=== PATIENT | male | born 1950 | race Caucasian/White ===

== ENCOUNTER 2024-03-09 08:54 | Outpatient (AMB) | payer OTHER, SELFPAY ==
--- OUTSIDE RECORDS SUMMARY | 2024-03-09 09:11 | XMS_ITS | Encounter Summary ---
Author Name [facility] [place] [facility] [place] Address [address] [place] [address] Care Team Providers Care Infection Control Coordinator Name Role Phone MAXI FULLER Primary Care Provider Unavailabl e Insurance Providers: All historical and current Section Date Range: From patient's date of to the date document was created. This section includes the names of all active insurance providers for the patient. Insurance Provider Type of Coverage Plan Name Start of Policy Coverage End of Policy Coverage Group Number Member ID Insurance Provider's Telephone Number Policy Awan's Name Patient's Relationship to Policy Awan [facility] June 17, 2013 [id number] Idania BENITEZ PATIENT MEDICARE (WNR) MEDICARE () PART B June 17, 2013 PART B [id number] Idania BENITEZ PATIENT MEDICARE (WNR) MEDICARE () PART A June 17, 2013 PART A [id number] Idania BENITEZ PATIENT MEDICARE (WN) MEDICARE () PART A June 17, 2013 PART A [id number] Idania BENITEZ AYJESSENIA PATIENT MEDICARE (WNR) MEDICARE () PART B June 17, 2013 PART B [id number],W AYNE PATIENT Selected Encounter This section includes the information on record at [place] for the Encounter. Date/Time Encounter Type Encounter Description Reason Pro vider Source Mar 05, 2024 05:06 PM Outpatient Encounter [facility] Encounter Template Text not used by [place] Plan of Treatment: Future Appointments (+ 6 months) and Future Tests (+/- 45 days) The Plan of Treatment section includes future care activities for the patient from all [place] treatmentfacilities. This section includes future appointments and future orders which are active, pending or scheduled. Future Appointments This section includes appointments that were scheduled to occur 6 months from the date of the Encounter, up to a maximum of 20 appointments. The data comes from all [facility]. Appointment Date/Time Appointment Type Appointme nt Facility Name Mar 22, 2024 08:00 AM AMBULATORY - [facility] Mar 24, 2024 11:00 AM [facility] Apr 27, 2024 10:30 AM [facility] Jun 16, 2024 09:00 AM AMBULATORY - MEDICINE [facility] Active, Pending, and Scheduled Orders This section includes a listing of several types of active, pending, and scheduled orders, including clinic medications orders, diagnostic test orders, procedure orders and consult orders; where the start date of the order is 45 days before the date of the Encounter or 45 days after the date of theEncounter. The data comes from all [facility]. Test Date/Time Test Type Test Details Facility Name Feb 13, 2024 02:59 PM Consult Order [facility] NON-SKILLED HOME HEALTH AIDE Cons Television Repair Teacher's Choice [facility] Mar 14, 2024 12:00 AM Laboratory - Chemistry Order MICROALBUMIN CREATININE RATIO PANEL URINE (RANDOM) [facility] Mar 14, 2024 12:00 AM Laboratory - Chemistry Order BASIC METABOLIC PANEL (non-fasting) BLOOD (SST-SERUM) [facility] Mar 14, 2024 12:00 AM Laboratory - Chemistry Order FERRITIN BLOOD (SST-SERUM) [facility] Mar 14, 2024 12:00 AM Laboratory - Chemistry Order CBC BLOOD (LAV-BLOOD) [facility] Mar 14, 2024 12:00 AM Laboratory - Chemistry Order IRON & TIBC PANEL BLOOD (SST-SERUM) [facility] Social History: Smoking Status (Most current) and Tobacco Use (All prior to encounter date) This section includes the most current, and the historical, smoking and tobacco- related health factors from the [place] facility where the Encounter took place. Current Smoking Status This section includes the most current smoking, or tobacco-related health factor, from the [place] facility where the Encounter took place. Date/Time Current Smoking Status Comment Facil ity Oct 21, 2019 10:30 AM [place]-TOBAC[place] FORMER USER [facility] Tobacco Use History This section includes a history of the smoking, or tobacco-related health factors, that were collected on or before the date of the Encounter. The data comes from the [place] facility where the Encounter took place. Date/Time Smoking Status/Tobacco Use Comment F acility Oct 21, 2019 10:30 AM [place] QUIT 15 YRS OR MORE [facility] Advance Directives: All historical and current Section Date Range: From patient's date of to the date document was created. This section includes ALL of a patient's completed or amended [place] Advance and Rescinded Directives. The entries below indicate that a directive exists for the patient, but an actual copy is not included with this document. The data comes from all [place] facilities. Date Advance Directives Provider Source Oct 03, 2016 ADVANCE DIRECTIVE [facility]AB[facility] SOSA [facility] Encounter Notes: All associated encounter notes This section contains the clinical notes associated to the Encounter. Date/Time Encounter Note(s) Provider Source Mar 05, 2024 05:08 PM LETTERS: LOCAL TITLE: PATIENT LETTER (B) STANDARD TITLE: LETTERS DATE OF NOTE: MAR 05, 2024@17:08 ENTRY DATE: MAR 05, 2024@17:08:32 AUTHOR: SUMIT PIERCE SA COSIGNER: URGENCY: STATUS: COMPLETED MAR 05, 2024 LULU BENITEZ [address] [place] [id number] Dear LULU BENITEZ Thank you for choosing the Department of [facility] ([place]) [facility] as your primary choice for health care. As a partner in your health care, we are contacting you in writing since we have been unsuccessful in our attempts to reach you to date. We want to assure you we are doing everything possible to schedule Veterans for their VA medical care appointments. Our records indicate you are due for an appointment in [facility]. If you would like to be seen, please contact [place] Call Center at ext. [phone] to schedule an appointment. Thank you for your service to our nation, and we look forward to hearing from you soon. Sincerely, [facility] [address] [facility] [address] [place] [address] [place] [address] [phone] [facility] [address] [facility] [address] [place] [address] [place] [address] ext. [phone] [facility] [address] [facility] [address] [place] [address] [place] [address] ext. [phone] SUMIT PIERCE [facility] Mar 05, 2024 05:06 PM ADMINISTRATIVE NOTE: LOCAL TITLE: ADMINISTRATIVE RECALL NOTE STANDARD TITLE: ADMINISTRATIVE NOTE DATE OF NOTE: MAR 05, 2024@17:06 ENTRY DATE: MAR 05, 2024@17:06:41 AUTHOR: SUMIT PIERCE SA COSIGNER: URGENCY: STATUS: COMPLETED RTC orders: Unable to contact patient: Attempts to contact: 1st attempt: Left voicemail 2nd attempt: Letter mailed 3rd attempt: 4th attempt: Called, on to reschedule appointment. Mailed letter. When the calls back please schedule for CWM/NO/OPTOMETRY/MERHAR, with a PID of 02/03/2024. Provided specialties clinic call back phone number [phone] Ext: [phone] LORRIE will disposition on 03/22/2024 /israel/ SUMIT PIERCE Signed: 03/05/2024 17:08 SUMIT PIERCE [facility]
--- OUTSIDE RECORDS SUMMARY | 2024-03-09 09:11 | XMS_ITS | Continuity of Care Document ---
Author Name [facility] Organization [facility] Care Team Providers Care Director Of Channel Marketing Name Role Phone [facility] Unavailable Unavailable Problems Combined list of problems from Department of Defense and Veterans Affairs facilities. It does not include entries that were removed or entered in error. Problem Status Onset Date Problem Type Date of Resolution Comments Source Colonoscopy Screening Active Condition Sep 02, 2016 Entered By: MAXI FULLER Comment: 2014 - repeat 2019 - Dr Gilmore 2021 Entered By: MAXI FULLER Comment: 09/06/19 - Dr. Sepulveda - internal hemorrhoids that prolapse w/ straining requiring manual replacement Garde 3Feb 2021 Entered By: MAXI FULLER Comment: hypertophied anal papillaFeb 2021 Entered By: MAXI FULLER Comment: repeat in 2 years d/t poor prep (08/2021)June 24, 2022 Entered By: MIKE MOLINA Comment: 03/20/[address] [facility] [address] Benitez Zhou, Prep poor, internal hemorrhoids, diverticulosis in the sigmoid, 1 7mm polyp in ascending colon, repeat 5 years. [facility] Fatty liver Active Condition Sep 02, 2016 Entered By: MAXI FULLER Comment: Liver Bx performed in past confirming Dx [facility] Hypercholesterolemia Active Condition [facility] Parkinson's disease Active Condition Sep 02, 2016 Entered By: MAXI FULLER Comment: 2013 - CT Head normal [facility] Type 2 diabetes mellitus Active Condition [facility] Vitamin D deficiency Active Condition [facility] Hypertension Inactive Condition 03/21/2022 [facility] non va provider Inactive Condition 09/02/2016 Aug 28, 2016 Entered By: LEIGH JONES Comment: Dr Red Murray ph:[phone] fax: [phone] [facility] [place] [facility] Primary Care Physician Inactive Condition 017 Aug 30, 2016 Entered By: MAXI FULLER Comment: [facility] 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 [place] Diagnosis: ICD-10-CM R80.0 Isolated proteinuria [facility] Diagnosis: ICD-10-CM E11.9 Type 2 diabetes mellitus without complications Active Diagnosis [place] Diagnosis: ICD-10-CM L60.0 Ingrowing nail Active Diagnosis [place] Diagnosis: ICD-10-CM G20.C Parkinsonism, unspecified Active Diagnosis [facility] [place] [facility] Diagnosis: ICD-10-CM Z46.0 Encounter for fit/adjst of spectacles and contact lenses Active Diagnosis [facility] [place] [facility] Diagnosis: ICD-10-CM B35.1 Tinea unguium Active Diagnosis [place] Diagnosis: ICD-10-CM I10 Essential (primary) hypertension Active Diagnosis [facility] Medications Combined list of outpatient medications from Department of Defense and Veterans Affairs facilities.Medications provided include 1) outpatient medications from the last 15 months, and 2) patient-reported medications. Medication Details Route Status Patient Instructions Prescription Expires Prescription Number Last Dispense Date Ordering Provider Order Date Order Qty Source ATORVASTATI N CA 40MG TAB TAKE ONE-HALF TABLET BY MOUTH DAILY FOR CHOLESTE ROL ORAL ACTIVE 06/26/2024 [id number] CONSTANTINO FULLER SA 2023 45 [place] ATORVASTATI N CA 40MG TAB TAKE ONE-HALF TABLET BY MOUTH DAILY FOR CHOLESTE ROL ORAL DISCONT INUED 10/01/2023 [id number] 4 CONSTANTINO FULLER SA 2022 45 [place] CARBIDOPA 25MG/LEVODO PA 100MG TAB TAKE 2 TABLETS BY MOUTH EVERY MORNING AND TAKE 1 TABLET TWICE DAILY FOR PARKINSO N'S DISEASE ORAL ACTIVE 05/15/2024 [id number] MARIA DE JESUS SUE 2023 360 [facility] CARBIDOPA 25MG/LEVODO PA 100MG TAB TAKE 1 TABLET BY MOUTH THREE TIMES A DAY ORAL DISCONT INUED 06/29/2023 [id number] 4 MARIA DE JESUS SUE 2022 270 [facility] CHOLECALCIF MARILOU 50MCG (2,000UNIT) TAB TAKE ONE TABLET BY MOUTH DAILY ORAL ACTIVE CONSTANTINO FULLER SA 2016 [facility] MELATONIN 5MG CAP/TAB TAKE TWO CAPSULE/ TABLET BY MOUTH AT BEDTIME FOR SLEEP DISORDER ORAL ACTIVE 05/15/2024 [id number] MARIA DE JESUS SUE 2023 180 [facility] POLYETHYLEN E GLYCOL 3350 PWDR,ORAL TAKE 17 GRAMS (1 CAPFUL) BY MOUTH TWICE DAILY NEEDED FOR CONSTIPA TION [MIX WITH 4 TO 8OZ. OF BEVERAGE ] ORAL ACTIVE 05/15/2024 [id number] 4 MARIA DE JESUS SUE 2023 510 [facility] RASAGILINE MESYLATE 1MG TAB TAKE ONE TABLET BY MOUTH ONCE DAILY ORAL ACTIVE 05/15/2024 [id number] 4 MARIA DE JESUS SUE 2023 90 [facility] RASAGILINE MESYLATE 1MG TAB TAKE ONE TABLET BY MOUTH ONCE DAILY ORAL DISCONT INUED 06/29/2023 [id number] 4 MARIA DE JESUS SUE 2022 90 [facility] VITAMIN B COMPLEX CAP TAKE 1 CAPSULE BY MOUTH DAILY ORAL ACTIVE CONSTANTINO FULLER SA 2016 [facility] Immunizations Combined list of available immunizations from the Department of Defense and Veterans Affairs facilities. Immunization Series Date Given Administered By Site Reaction Lot Number CVX Code Drug Foundation Digger Status Comments Source INFLUENZA, HIGH-DOSE, TRIVALENT, PF 2023 JESSE,SHAR ON M LEFT DELTO ID [id number] 135 complet ed [place] INFLUENZA, INJECTABLE, QUADRIVALENT, PRESERVATIVE FREE 2022 DOTTY JUAREZ LEFT DELTO ID [id number] 150 complet ed [place] INFLUENZA VACCINE, QUADRIVALENT, ADJUVANTED 2021 205 complet ed [place] COVID-19 (MODERNA), MRNA, LNP-S, PF, 100 MCG OR 50 MCG DOSE 3 2020 207 complet ed [facility] HEP B, ADULT 1 2020 43 complet ed [place] TDAP 2020 115 complet ed [place] COVID-19 (PFIZER), MRNA, LNP-S, PF, 30 MCG/0.3 ML DOSE 2 2020 208 complet ed [facility] COVID-19 (PFIZER), MRNA, LNP-S, PF, 30 MCG/0.3 ML DOSE 1 2020 208 complet ed [facility] HEPB-CPG 1 2019 189 complet ed [place] INFLUENZA, INJECTABLE, QUADRIVALENT, PRESERVATIVE FREE 2019 150 complet ed [place] INFLUENZA, SEASONAL, INJECTABLE 2018 141 complet ed [facility] unsure of exact date [facility] PNEUMOCOCCAL POLYSACCHARID E PPV23 2018 33 complet ed [place] INFLUENZA, SEASONAL, INJECTABLE 2017 141 complet ed had vaccine at [facility] ZOSTER RECOMBINANT 2 2017 187 complet ed [place] ZOSTER RECOMBINANT 1 2017 187 complet ed [place] INFLUENZA, SEASONAL, INJECTABLE 2016 141 complet ed [facility] INFLUENZA, SEASONAL, INJECTABLE 2016 141 complet ed [facility] - High Dose [facility] INFLUENZA, SEASONAL, INJECTABLE 2016 141 complet ed [facility] PNEUMOCOCCAL CONJUGATE PCV 13 2016 133 complet ed [place] PNEUMOCOCCAL POLYSACCHARID E PPV23 2011 33 complet ed YES [id number] EXP. 3 [facility] FLU,3 YRS (HISTORICAL) 2010 88 complet ed per immunizat ion records faxed [facility] TDAP 2010 115 complet ed LOT [id number] EXP. 12/19/2012 [facility] ZOSTER (HISTORICAL) 2008 121 [place] [id number] EXP. 04/15/2010 [facility] TD(ADULT) UNSPECIFIED FORMULATION 2006 139 complet ed LOT: [id number] [facility] PNEUMOCOCCAL POLYSACCHARID E PPV23 2005 33 complet ed YES [id number] EXP. 06/23 [facility] HEPATITIS B VACCINE (HISTORICAL) 1998 43 complet ed per vet med records had at work [facility] Results Combined list of recent chemistry, hematology and other laboratory results from Department of Defense and Veterans Affairs, ranging from 15 months to all on record, depending upon the facility. Order Name Results Value Reference Range Date Interpretation Specimen Comments Source PO4 PHOSPHATE [MASS/VOLUM E] IN SERUM OR PLASMA 2.9 mg/dL 2.5 - 5.0 01/07 Specimen Type: SERUM No comment entered. Ordering Provider: JOSH ORTIZ Report Released Date/Time: Oct 30, 2023 03:17 PM Reporting Lab: [facility] [address] [facility] [address] Performing Lab: [facility] [facility] [address] [facility] [facility] [address] [facility] PTH INTACT PARATHYRIN. INTACT [MASS/VOLUM E] IN SERUM OR PLASMA 35.1 pg/mL 10 - 65 01/07 Specimen Type: SERUM No comment entered. Ordering Provider: JOSH ORTIZ Report Released Date/Time: Oct 30, 2023 03:17 PM Reporting Lab: [facility] [place] [facility] [address] [facility] [address] Performing Lab: [facility] [place] [facility] [address] [facility] [facility] [address] [facility] URIC ACID URATE [MASS/VOLUM E] IN SERUM OR PLASMA 6.5 mg/dL 3.5 - 7.2 01/07 Specimen Type: SERUM No comment entered. Ordering Provider: JOSH ORTIZ Report Released Date/Time: Oct 30, 2023 03:17 PM Reporting Lab: [facility] [address] [facility] [address] Performing Lab: [place] [facility] [address] [facility] [address] [facility] VITAMIN D (25-OH) 25-HYDROXYV ITAMIN D3 [MASS/VOLUM E] IN SERUM OR PLASMA 34 ng/mL 20 - 50 01/07 Specimen Type: SERUM No comment entered. Ordering Provider: JOSH ORTIZ Report Released Date/Time: Oct 30, 2023 03:17 PM Reporting Lab: [facility] [address] [facility] [address] Performing Lab: [facility] [address] [facility] [facility] [address] [facility] BASIC METABOLIC PANEL (non-fast ing) UREA NITROGEN [MASS/VOLUM E] IN SERUM OR PLASMA 13 mg/dL 7 - 25 01/07 Specimen Type: SERUM No comment entered. Ordering Provider: JOSH ORTIZ Report Released Date/Time: Oct 30, 2023 03:17 PM Reporting Lab: [facility] [place] [facility] [address] [facility] [address] Performing Lab: [facility] [place] [facility] [address] [facility] [address] [facility] BASIC METABOLIC PANEL (non-fast ing) GLUCOSE [MASS/VOLUM E] IN SERUM OR PLASMA 131 mg/dL 65 - 100 01/07 H Specimen Type: SERUM No comment entered. Ordering Provider: JOSH ORTIZ Report Released Date/Time: Oct 30, 2023 03:17 PM Reporting Lab: [facility] [address] [facility] [address] Performing Lab: [facility]ITALUSE[address] [address] [facility] BASIC METABOLIC PANEL (non-fast ing) SODIUM [MOLES/VOLU ME] IN SERUM OR PLASMA 142 mmol/L 135 - 145 01/07 Specimen Type: SERUM No comment entered. Ordering Provider: JOSH ORTIZ Report Released Date/Time: Oct 30, 2023 03:17 PM Reporting Lab: [facility] [address] Performing Lab: [facility] [address] [facility] BASIC METABOLIC PANEL (non-fast ing) POTASSIUM [MOLES/VOLU ME] IN SERUM OR PLASMA 4.7 mmol/L 3.5 - 5.0 01/07 Specimen Type: SERUM No comment entered. Ordering Provider: JOSH ORTIZ Report Released Date/Time: Oct 30, 2023 03:17 PM Reporting Lab: [facility] [address] Performing Lab: [place] [facility] [facility]ITAL[facility] [address] [address] [facility] BASIC METABOLIC PANEL (non-fast ing) CHLORIDE [MOLES/VOLU ME] IN SERUM OR PLASMA 105 mmol/L 100 - 110 01/07 Specimen Type: SERUM No comment entered. Ordering Provider: JOSH ORTIZ Report Released Date/Time: Oct 30, 2023 03:17 PM Reporting Lab: [facility] [address] Performing Lab: [place] [facility] [address] [facility] BASIC METABOLIC PANEL (non-fast ing) CARBON DIOXIDE, TOTAL [MOLES/VOLU ME] IN SERUM OR PLASMA 26 meq/L 20 - 30 01/07 Specimen Type: SERUM No comment entered. Ordering Provider: JOSH ORTIZ Report Released Date/Time: Oct 30, 2023 03:17 PM Reporting Lab: [facility] [address] [address] Performing Lab: [facility] [address] [address] [facility] BASIC METABOLIC PANEL (non-fast ing) CREATININE [MASS/VOLUM E] IN SERUM OR PLASMA 1.05 mg/dL 0.50 - 1.40 01/07 Specimen Type: SERUM No comment entered. Ordering Provider: JOSH ORTIZ Report Released Date/Time: Oct 30, 2023 03:17 PM Reporting Lab: [address] [address] Performing Lab: [address] [address] [facility] BASIC METABOLIC PANEL (non-fast ing) GLOMERULAR FILTRATION RATE/1.73 SQ M.PREDICTED [VOLUME RATE/AREA] IN SERUM, PLASMA OR BLOOD BY CREATININE- BASED FORMULA (CKD-EPI 2020) 74 mL/min 60 01/07 Specimen Type: SERUM No comment entered. Ordering Provider: JOSH ORTIZ Report Released Date/Time: Oct 30, 2023 03:17 PM Reporting Lab: [address] [address] Performing Lab: [address] [address] [facility] MAGNESIUM MAGNESIUM [MASS/VOLUM E] IN SERUM OR PLASMA 2.1 mg/dL 1.6 - 2.6 01/07 Specimen Type: SERUM No comment entered. Ordering Provider: JOSH ORTIZ Report Released Date/Time: Oct 30, 2023 03:17 PM Reporting Lab: [facility] [place] [facility] [address] [facility] [address] Performing Lab: [facility] [place] [facility] [address] [facility] [address] [place] [facility] [place] [facility] FERRITIN FERRITIN [MASS/VOLUM E] IN SERUM OR PLASMA 427 ng/mL 20 - 300 01/07 H Specimen Type: SERUM No comment entered. Ordering Provider: JOSH ORTIZ Report Released Date/Time: Oct 30, 2023 03:17 PM Reporting Lab: [facility] [place] [facility] [address] [facility] [address] Performing Lab: [facility] [place] [facility] [address] [facility] [address] [facility] [place] [facility] CHOLESTER OL CHOLESTEROL [MASS/VOLUM E] IN SERUM OR PLASMA 148 mg/dL 01/07 Specimen Type: SERUM No comment entered. Ordering Provider: JOSH ORTIZ Report Released Date/Time: Oct 30, 2023 03:17 PM Reporting Lab: [facility] [place] [facility] [address] [facility] [address] Performing Lab: [facility] [place] [facility] [address] [facility] [address] [facility] HDL CHOLESTER OL CHOLESTEROL IN HDL [MASS/VOLUM E] IN SERUM OR PLASMA 50 mg/dL 40 - 60 01/07 Specimen Type: SERUM No comment entered. Ordering Provider: JOSH ORTIZ Report Released Date/Time: Oct 30, 2023 03:17 PM Reporting Lab: [facility] [place] [facility] [address] [facility] [address] Performing Lab: [facility] [place] [facility] [address] [facility] [address] [facility] [place] [facility] CALCIUM CALCIUM [MASS/VOLUM E] IN SERUM OR PLASMA 9.4 mg/dL 8.5 - 10.2 01/07 Specimen Type: SERUM No comment entered. Ordering Provider: JOSH ORTIZ Report Released Date/Time: Oct 30, 2023 03:17 PM Reporting Lab: [facility] [address] [facility] [address] Performing Lab: [facility] [address] [facility] [address] [facility] Vital Signs Combined list of inpatient and outpatient Vital Signs from Department of Defense and Veterans Affairs, ranging from 12 months to all on record, depending upon the facility. Vital Sign Value Date Comments Source SYSTOLIC BLOOD PRESSURE 115 10/29/19 24 11:44:22 [facility] DIASTOLIC BLOOD PRESSURE 73 024 11:44:22 [facility] PULSE OXIMETRY 97 10/29/2023 11:44:22 [facility] WEIGHT 178.6 10/29/2023 11:44:22 [facility] BMI 27kg/m2 10/29/2023 11:44:22 [facility] PAIN 0 10/29/2023 11:44:22 [facility] HEIGHT 68 10/29/2023 11:44:22 [facility] TEMPERATURE 97.1 10/29/2023 11:44:22 [facility] PULSE 69 10/29/2023 11:44:22 [facility] RESPIRATION 18 10/29/2023 11:44:22 [facility] SYSTOLIC BLOOD PRESSURE 105 05/15/19 24 10:34:02 [facility] DIASTOLIC BLOOD PRESSURE 67 024 10:34:02 [facility] PULSE OXIMETRY 98 05/15/2023 10:34:02 [facility] WEIGHT 183.8 05/15/2023 10:34:02 [facility] BMI 28kg/m2 05/15/2023 10:34:02 [facility] PAIN 0 05/15/2023 10:34:02 [facility] TEMPERATURE 98 05/15/2023 10:34:02 [facility] PULSE 80 05/15/2023 10:34:02 [facility] RESPIRATION 18 05/15/2023 10:34:02 [facility] SYSTOLIC BLOOD PRESSURE 117 04/21/19 24 08:28:01 [facility] DIASTOLIC BLOOD PRESSURE 75 024 08:28:01 [facility] PULSE OXIMETRY 98 04/21/2023 08:28:01 [facility] WEIGHT 181.4 04/21/2023 08:28:01 [facility] BMI 28kg/m2 04/21/2023 08:28:01 [facility] PAIN 0 04/21/2023 08:28:01 [facility] HEIGHT 68 04/21/2023 08:28:01 [facility] TEMPERATURE 98.4 04/21/2023 08:28:01 [facility] PULSE 70 04/21/2023 08[facility]28:01 [facility] RESPIRATION 16 04/21/2023 08:28:01 [facility] Encounters Combined list of: 1) Encounters from Department of Veterans Affairs facilities going back up to thelast 18 months. 2) Encounters from the Department of Defense facilities going back up to 280 months. Location Location Details Encounter Type Encounter Number Reason For Visit Attending Provider ADM Date DC Date Status Disposition Source [facility] Encounter [id number] 09[facility]19 [facility] Out[facility] Encounter [id number] 09/30 [facility] OFFICE O/P EST LOW 20-29 MIN [id number] Diagnos is: ICD-10- CM I10 Essenti al (primar y) hyperte nsion<b r/> FRANCISCA FULLER 09/30 [place] [facility] Outpatient Encounter [id number] 10/18 [facility] OFFICE O/P EST MOD 30-39 MIN [id number] Diagnos is: ICD-10- CM B35.1 Tinea unguium
CAITLYN GANDHI ES F 11[place]11 [place] [facility] EYE EXAM&TX ESTAB PT 1/>VST [id number] Diagnos is: ICD-10- CM E11.9 Type 2 diabete s mellitu s without complic ations< br/> MERHAR,ELIZABETH H B 01/13 [facility] FIT SPECTACLES MULTIFOCAL [id number] Diagnos is: ICD-10- CM Z46.0 Encount er for fit/adj st of spectac les and contact lenses< br/> MERHAR,ELIZABETH H B 01/13 [facility] Outpatient Encounter [id number] POOJA RICHEY 02/24 [facility] Out[facility] Encounter [id number] 02/24 [facility] Outpatient Encounter [id number] 03/18 [facility] Out[facility] Encounter [id number] 03/19 [facility] Out[facility] Encounter [id number] 03/19 [facility] Outpatient Encounter [id number] 04/02 [facility] OFFICE O/P EST LOW 20 MIN [id number] Diagnos is: ICD-10- CM L60.3 Nail dystrop hy
CAITLYN GANDHI ES F 04[facility] EST MOD 30 MIN [id number] Diagnos is: ICD-10- CM G20.C Makayla onism, unspeci fied
FRANCISCA FULLER 04/20 [place] [facility] Outpatient Encounter [id number] 04/28 [facility] Encounter [id number] 05/11 [facility] OFFICE O/P EST MOD 30 MIN [id number] Diagnos is: ICD-10- CM G20.C Makayla onism, unspeci fied
KARINA SUE IETre Y 05/14 [facility] En[facility] [id number] 05/15 [facility] Out[facility] Encounter [id number] 05/26 [facility] Out[facility] Encounter [id number] 06/02 [facility] Encounter [id number] 06/09 [facility] [id number] 06/18 [facility] [id number] 06/25 [facility] [id number] 07/07 [facility] [id number] 07/21 [facility] [id number] 07/28 [facility] [id number] 08/04 [facility] [id number] 08/18 [facility] En[facility] [id number] 09/08 [facility] [place] [facility] O/P EST LOW 20 MIN [id number] Diagnos is: ICD-10- CM L60.0 Ingrowi ng nail
CAITLYN GANDHI F 09/30 [place] [facility] En[facility] [id number] 09/30 [facility] [id number] 1[facility]10/08 [facility] [id number] 1[facility]10/13 [facility] [id number] 1.10/20 [facility] OFF[facility] O/P EST MOD 30 MIN [id number] Diagnos is: ICD-10- CM E11.9 Type 2 diabete s mellitu s without complic ations< br/> FRANCISCA FULLER 10/28 [place] [facility] En[facility] [id number] 1.12/01 [facility] [id number] 1.12/10 [facility] [id number] [facility] [id number] [facility] [facility] Out[facility] Encounter [id number] 01/12 [facility] OFFICE O/P EST MOD 30 MIN [id number] 1. Diagnos is: ICD-10- CM R80.0 Isolate d protein uria
Jaya ORTIZ 01/12 [facility] Outpatient Encounter [id number] 1.01/13 [facility] Outpatient Encounter [id number] 1. POOJA RICHEY 02/12 [facility] Outpatient Encounter [id number] 02/12 [facility] OFFICE O/P EST LOW 20 MIN [id number] Diagnos is: ICD-10- CM L60.3 Nail dystrop hy
CAITLYN GANDHI F 02/24 [facility] Outpatient Encounter [id number] 03/03 [facility] Outpatient Encounter [id number] 03/05 [facility] Social History Combined list of available smoking, tobacco, and other social history from Department of Defense and Veterans Affairs facilities. Social History Type Response Date Comment Source Tobacco smoking status [facility] VA-TOBACCO FORMER USER 10/29/2023 [place] History of tobacco use [place]-TOBACCO QUIT 15 YRS OR MORE 10/29/2023 [place] History of tobacco use VA-TOBACCO FORMER USER 09/30/2022 [place] History of tobacco use VA-TOBACCO FORMER USER 09/18/2021 [place] History of tobacco use [place]-TOBACCO FORMER USER 09/28/2020 [place] History of tobacco use [place]-TOBACCO FORMER USER 10/21/2019 [facility] History of tobacco use OK-TOBACCO FORMER USER 04/16/2018 [place] History of tobacco use QUIT TOBACCO USE > 7 YEARS AGO 07/18/2017 [place] History of tobacco use QUIT TOBACCO USE > 7 YEARS AGO 09/02/2016 quit smoking cigarettes in 1994 [place] Plan of Care List of future care activities from [facility] facilities. Additional future care activities may be listed in the Assessment and Plan section. Date/Time Care Activity Care Activity Detail Facili ty 03/22/2024 AMBULATORY - MEDICINE AMBULATORY - MEDICI NE [facility] 03/24/2024 AMBULATORY - MEDICINE AMBULATORY - MEDICI NE [facility] 04/27/2024 AMBULATORY - MEDICINE AMBULATORY - MEDICI [facility] 06/16/2024 AMBULATORY - MEDICINE AMBULATORY - MEDICI [facility] 02/13/2024 Consult Order COMMUNITY CARE-G EC NON-SKILLED HOME HEALTH AIDE Cons Pathology Lab Technician's Choice [facility] 03/14/2024 Laboratory - Holiday Detector Operator ry Order MICROALBUMIN CREATININE RATIO PANEL URINE (RANDOM) [facility] 03/14/2024 Laboratory - Holiday Detector Operator ry Order BASIC METABOLIC PANEL (non-fasting) BLOOD (SST-SERUM) [facility] 03/14/2024 Laboratory - Holiday Detector Operator ry Order FERRITIN BLOOD (SST-SERUM) [facility] 03/14/2024 Laboratory - Holiday Detector Operator ry Order IRON and TIBC PANEL BLOOD (SST-SERUM) [facility] 03/14/2024 Laboratory - Holiday Detector Operator ry Order CBC BLOOD (LAV-BLOOD) [facility] Advance Directives List of completed, amended, or rescinded Advance Directives on record at [facility] facilities. An actual copy of the Directive is not included. Date Advance Directive Provider Source 10/03/2016 ADVANCE DIRECTIVE ELIZABETH SOSA [facility]
--- OUTSIDE RECORDS SUMMARY | 2024-03-09 09:11 | XMS_ITS | Encounter Summary ---
Author Name [place] Address [address] [place] [address] Care Team Providers Care Lay Out Inspector Name Role Phone MAXI FULLER Primary Care [...] Name Patient's Relationship to Policy Awan [facility] June 17, 2013 [id number] [phone] Idania BENITEZ PATIENT MEDICARE (WNR) MEDICARE () PART A June 17, 2013 PART A [id number] Idania BENITEZ PATIENT MEDICARE (WNR) MEDICARE () PART B June 17, 2013 PART B [id number] Idania BENITEZ PATIENT MEDICARE (WNR) MEDICARE () PART A June 17, 2013 PART A [id number] [phone] Idania BENITEZ PATIENT MEDICARE (WNR) MEDICARE (M) PART B June 17, 2013 PART B [id number] Idania BENITEZ PATIENT Selected Encounter This section includes the information on record at [place] for the Encounter. Date/Time Encounter Type Encounter Description Reason Pro vider Source Mar 03, 2024 10:12 PM Outpatient Encounter ADMIN PAT ACTIVTIES (MASNONCT) IHE Encounter Template Text not used by [place] Plan of Treatment: Future Appointments (+ 6 months) and Future Tests (+/- 45 days) The Plan of Treatment section includes future care activities for the patient from all [place] treatmentfacilities. This section includes future appointments and future orders which are active, pending or scheduled. Future Appointments This section includes appointments that were scheduled to occur 6 months from the date of the Encounter, up to a maximum of 20 appointments. The data comes from all [facility] facilities. Appointment Date/Time Appointment Type Appointme nt Facility Name Mar 22, 2024 08:00 AM AMBULATORY - MEDICINE [facility] Mar 24, 2024 11:00 AM AMBULATORY - MEDICINE [facility] Apr 27, 2024 10:30 AM AMBULATORY - MEDICINE [facility] Jun 16, 2024 09:00 AM AMBULATORY - MEDICINE [facility] Active, Pending, and Scheduled Orders This section includes a listing of several types of active, pending, and scheduled orders, including clinic medications orders, diagnostic test orders, procedure orders and consult orders; where the start date of the order is 45 days before the date of the Encounter or 45 days after the date of theEncounter. The data comes from all [facility]. Test Date/Time Test Type Test Details Facility Name Feb 13, 2024 02:59 PM Consult Order COMMUNITY CARE-GEC NON-SKILLED HOME HEALTH AIDE Cons Docent Coordinator's [facility] Mar 14, 2024 12:00 AM Laboratory - Chemistry Order MICROALBUMIN CREATININE RATIO PANEL URINE (RANDOM) [facility] Mar 14, 2024 12:00 AM Laboratory - Chemistry Order BASIC METABOLIC PANEL (non-fasting) BLOOD (SST-SERUM) [facility] Mar 14, 2024 12:00 AM Laboratory - Chemistry Order FERRITIN BLOOD (SST-SERUM) [facility] Mar 14, 2024 12:00 AM Laboratory - Chemistry Order IRON & TIBC PANEL BLOOD (SST-SERUM) [facility] Mar 14, 2024 12:00 AM Laboratory - Chemistry Order CBC BLOOD (LAV-BLOOD) [facility] Social History: Smoking Status (Most current) and Tobacco Use (All prior to encounter date) This section includes the most current, and the historical, smoking and tobacco- related health factors from the [place] facility where the Encounter took place. Current Smoking Status This section includes the most current smoking, or tobacco-related health factor, from the [place] facility where the Encounter took place. Date/Time Current Smoking Status Comment Facil ity Oct 21, 2019 10:30 [facility] Tobacco Use History This section includes a history of the smoking, or tobacco-related health factors, that were collected on or before the date of the Encounter. The data comes from the [place] facility where the Encounter took place. Date/Time Smoking Status/Tobacco Use Comment F acility Oct 21, 2019 10:30 AM [facility] OR [facility] Advance Directives: All historical and current Section Date Range: From patient's date of to the date document was created. This section includes ALL of a patient's completed or amended [place] Advance and Rescinded Directives. The entries below indicate that a directive exists for the patient, but an actual copy is not included with this document. The data comes from all [facility]. Date Advance Directives Provider Source Oct 03, 2016 ADVANCE DIRECTIVE ELIZABETH SOSA [facility] Encounter Notes: All associated encounter notes This section contains the clinical notes associated to the Encounter. Date/Time Encounter Note(s) Provider Source Mar 03, 2024 10:12 PM PHARMACY NOTE: LOCAL TITLE: PHARMACY CUSTOMER CARE MEDICATION RENEWAL STANDARD TITLE: PHARMACY NOTE DATE OF NOTE: MAR 03, 2024@22:12 ENTRY DATE: MAR 03, 2024@22:12:42 AUTHOR: ANN SORIA COSIGNER: URGENCY: STATUS: COMPLETED Date: Feb Division: [facility] referred by Pharmacy Call Center for medication renewal: Non-controlled/maintenan ce medication Medications requested: [id number] DOCUSATE NA 100MG CAP This medication was last released 07/08/2022, but the requested to renew it. Please review. Defer to specialty clinic To be mailed . Please review and renew if appropriate. *This note was generated by [facility]/[place] Pharmacy Customer Care. If you have any questions or need assistance, do not contact this author. Please refer all questions to your local, on-site pharmacy departments. /israel/ ANN SORIA CPhT Metal Extrusion Supervisor, [place]/Pharmacy Customer Care Signed: 03/03/2024 22:12 Receipt Acknowledged By: * AWAITING SIGNATURE * TENZIN SUE KATRINA M [place] [facility]
--- OUTSIDE RECORDS SUMMARY | 2024-03-09 09:12 | XMS_ITS | Encounter Summary ---
Author Name [place] Address [address] [place] [address] Care Team Providers Care Planer Chain Offbearer Name Role Phone MAXI FULLER Primary Care Provider Unavailflorentin e Insurance Providers: All historical and current [...] Name Patient's Relationship to Policy Awan [facility] June 17, 2013 [id number] Idania BENITEZ PATIENT MEDICARE (WNR) MEDICARE () PART A June 17, 2013 PART A [id number] Idania BENITEZ PATIENT MEDICARE (WNR) MEDICARE () PART B June 17, 2013 PART B [id number] Idania BENITEZ PATIENT MEDICARE (WNR) MEDICARE () PART A June 17, 2013 PART A [id number] Idania BENITEZ PATIENT MEDICARE (WNR) MEDICARE () PART B June 17, 2013 PART B [id number] Idania BENITEZ PATIENT Selected Encounter This section includes the information on record at [place] for the Encounter. Date/Time Encounter Type Encounter Description Reason Pro vider Source Dec 18, 2023 12:00 AM Outpatient Encounter EVENT (HISTORICAL) IHE Encounter Template Text not used by [place] Plan of Treatment: Future Appointments (+ 6 months) and Future Tests (+/- 45 days) The Plan of Treatment section includes future care activities for the patient from all [place] treatmentfacilities. This section includes future appointments and future orders which are active, pending or scheduled. Future Appointments This section includes appointments that were scheduled to occur 6 months from the date of the Encounter, up to a maximum of 20 appointments. The data comes from all [place] treatment [facility]. Appointment Date/Time Appointment Type Appointme nt Facility Name Jan 13, 2024 10:30 AM AMBULATORY - MEDICINE [place] [facility] Feb 25, 2024 09:00 AM AMBULATORY - MEDICINE [facility] Mar 22, 2024 08:00 AM AMBULATORY MEDICINE [place] C [facility] Mar 24, 2024 11:00 AM AMBULATORY MEDICINE [facility] Apr 27, 2024 10:30 AM AMBULATORY MEDICINE [facility] Jun 16, 2024 09:00 AM AMBULATORY - MEDICINE [facility] Active, Pending, and Scheduled Orders This section includes a listing of several types of active, pending, and scheduled orders, including clinic medications orders, diagnostic test orders, procedure orders and consult orders; where the start date of the order is 45 days before the date of the Encounter or 45 days after the date of theEncounter. The data comes from all [facility]. Test Date/Time Test Type Test Details Facility Name Jan 08, 2024 12:00 AM Laboratory - Chemistry Order MICROALBUMIN CREATININE RATIO PANEL URINE (RANDOM) SP [facility] Lab Results: +/- 30 days of the encounter This section includes the Chemistry and Hematology Lab Results on record with [place] for the patient. Radiology Reports and Pathology Reports are provided separately, in subsequent sections. Lab Results This section contains the Chemistry/Hematology Results that were resulted 30 days before or 30 daysafter the date of the Encounter. Date/Time Source Result Type Result - Unit Interpretation Reference Range Comment Jan 08, 2024 07:40 AM [facility] PO4 Specimen Type: SERUM No comment entered. Ordering Provider: LUIS ORTIZ Report Released Date/Time: Oct 30, 2023 03:17 PM Reporting Lab: [facility] [place] [facility] [address] [facility] [address] Performing Lab: [facility] [address] [facility] [address] PO4 2.9 mg/dL 2.5-5.0 Jan 08, 2024 07:40 AM [facility] PTH INTACT Specimen Type: SERUM No comment entered. Ordering Provider: LUIS ORTIZ Report Released Date/Time: Oct 30, 2023 03:17 PM Reporting Lab: [facility] [place] [facility] [address] [facility] [address] Performing Lab: [facility] [address] [address] PTH INTACT 35.1 pg/mL 10-65 Jan 08, 2024 07:40 AM [facility] VITAMIN D (25-OH) Specimen Type: SERUM No comment entered. Ordering Provider: LUIS ORTIZ Report Released Date/Time: Oct 30, 2023 03:17 PM Reporting Lab: [facility] [address] [facility] [address] Performing Lab: [facility]TRN [facility] [address] [address] VITAMIN D (25-OH) 34 ng/mL 20-50 Jan 08, 2024 07:40 AM [facility] URIC ACID Specimen Type: SERUM No comment entered. Ordering Provider: LUIS ORTIZ Report Released Date/Time: Oct 30, 2023 03:17 PM Reporting Lab: [facility] [address] [facility] [address] Performing Lab: [facility]TRN [facility] [address] [address] URIC ACID 6.5 mg/dL 3.5-7.2 Jan 08, 2024 07:40 AM [facility] MAGNESIUM Specimen Type: SERUM No comment entered. Ordering Provider: LUIS ORTIZ Report Released Date/Time: Oct 30, 2023 03:17 PM Reporting Lab: [facility] [address] [facility] [address] Performing Lab: [address] [address] MAGNESIUM 2.1 mg/dL 1.6-2.6 Jan 08, 2024 07:40 AM [facility] FERRITIN Specimen Type: SERUM No comment entered. Ordering Provider: LUIS ORTIZ Report Released Date/Time: Oct 30, 2023 03:17 PM Reporting Lab: [facility] [address] [facility] [address] Performing Lab: [address] [address] FERRITIN 427 ng/mL H 20-300 Jan 08, 2024 07:40 AM [facility] BASIC METABOLIC PANEL (non-fasting) Specimen Type: SERUM No comment entered. Ordering Provider: LUIS ORTIZ Report Released Date/Time: Oct 30, 2023 03:17 PM Reporting Lab: [address] [address] Performing Lab: [address] [address] UREA NITROGEN 13 mg/dL 7-25 GLUCOSE 131 mg/dL H 65-100 SODIUM 142 mmol/L 135-145 POTASSIUM 4.7 mmol/L 3.5-5.0 CHLORIDE 105 mmol/L 100-110 CO2 26 meq/L 20-30 CREATININE, Serum 1.05 mg/dL 0.50-1.40 eGFR(CKD-EPI 2020) 74 mL/min >60 Jan 08, 2024 07:40 AM [facility] CHOLESTEROL Specimen Type: SERUM No comment entered. Ordering Provider: LUIS ORTIZ Report Released Date/Time: Oct 30, 2023 03:17 PM Reporting Lab: [place] [address] [facility] [address] Performing Lab: [place] [facility] [place] [facility] [address] [facility] [address] CHOLESTEROL 148 mg/dL Jan 08, 2024 07:40 AM [facility] [place] [facility] IRON & TIBC PANEL Specimen Type: SERUM No comment entered. Ordering Provider: LUIS ORTIZ Report Released Date/Time: Oct 30, 2023 03:17 PM Reporting Lab: [place] [facility] [place] [facility] [address] [facility] [address] Performing Lab: [place] [address] [address] TIBC 255 ug/dL 204-475 IRON 137 ug/dL 40-160 Transferrin Saturation 53.8 H 20.0-50.0 Transferrin (TRF) 193 mg/dL L 200-360 Jan 08, 2024 07:40 AM [facility] HDL CHOLESTEROL Specimen Type: SERUM No comment entered. Ordering Provider: LUIS ORTIZ Report Released Date/Time: Oct 30, 2023 03:17 PM Reporting Lab: [facility] [place] [address] [address] Performing Lab: [facility] [place] [place] [address] [address] HDL CHOLESTEROL 50 mg/dL 40-60 Jan 08, 2024 07:40 AM [facility] CALCIUM Specimen Type: SERUM No comment entered. Ordering Provider: LUIS ORTIZ Report Released Date/Time: Oct 30, 2023 03:17 PM Reporting Lab: [place] [facility] [place] [address] [address] Performing Lab: [place] [place] [address] [address] CALCIUM 9.4 mg/dL 8.5-10.2 Jan 08, 2024 07:40 AM [facility] ALBUMIN Specimen Type: SERUM No comment entered. Ordering Provider: LUIS ORTIZ Report Released Date/Time: Oct 30, 2023 03:17 PM Reporting Lab: [facility] [address] [facility] [address] Performing Lab: [facility] [address] [address] ALBUMIN 3.6 g/dL 3.5-5.0 Jan 08, 2024 07:40 AM [facility] ALKALINE PHOSPHATASE Specimen Type: SERUM No comment entered. Ordering Provider: LUIS ORTIZ Report Released Date/Time: Oct 30, 2023 03:17 PM Reporting Lab: [facility] [address] [facility] [address] Performing Lab: [address] [address] ALKALINE PHOSPHATASE 89 U/L 40-150 Jan 08, 2024 07:40 AM [facility] CBC Specimen Type: BLOOD No comment entered. Ordering Provider: LUIS ORTIZ Report Released Date/Time: Oct 30, 2023 03:17 PM Reporting Lab: [facility] [address] [facility] [address] Performing Lab: [facility] [address] [address] WBC 5.57 10*3/uL 4.50-11.00 RBC 5.11 10*6/uL 4.23-5.66 HGB 14.9 g/dL 12.8-17 HCT 45.6 39.2-50.4 MCV 89.2 fL 82-99 MCHC 32.7 g/dL 30.8-35.1 PLT 176 10*3/uL 140-360 RDW-CV 13.5 12.0-16.0 MCH 29.2 pg 26.2-32.6 Social History: Smoking Status (Most current) and Tobacco Use (All prior to encounter date) This section includes the most current, and the historical, smoking and tobacco- related health factors from the [place] facility where the Encounter took place. Current Smoking Status This section includes the most current smoking, or tobacco-related health factor, from the [place] facility where the Encounter took place. Date/Time Current Smoking Status Comment Rich lea Oct 21, 2019 10:30 AM AL-TOBACCO QUIT 15 YRS OR MORE [facility] Tobacco Use History This section includes a history of the smoking, or tobacco-related health factors, that were collected on or before the date of the Encounter. The data comes from the [place] facility where the Encounter took place. Date/Time Smoking Status/Tobacco Use Comment F acility Oct 21, 2019 10:30 AM AL-TOBACCO QUIT 15 YRS OR MORE [facility] Advance Directives: All historical and current Section Date Range: From patient's date of to the date document was created. This section includes ALL of a patient's completed or amended [place] Advance and Rescinded Directives. The entries below indicate that a directive exists for the patient, but an actual copy is not included with this document. The data comes from all [place] facilities. Date Advance Directives Provider Source Oct 03, 2016 ADVANCE DIRECTIVE ELIZABETH SOSA [facility] Encounter Notes: All associated encounter notes This section contains the clinical notes associated to the Encounter. Date/Time Encounter Note(s) Provider Source Dec 18, 2023 12:00 AM NONVA CONSULT: LOCAL TITLE: COMMUNITY CARE-CONSULT RESULT NOTE STANDARD TITLE: NONVA CONSULT DATE OF NOTE: DEC 18, 2023 ENTRY DATE: FEB 04, 2024@15:21:48 AUTHOR: MARIPOSA MOHAN COSIGNER: URGENCY: STATUS: COMPLETED VistA Imaging - Scanned Document SCANNED DOCUMENT SIGNATURE NOT REQUIRED Electronically Filed: 02/04/2024 by: MARIPOSA SHELDON [facility]
--- OUTSIDE RECORDS SUMMARY | 2024-03-09 09:12 | XMS_ITS ---
Author Name [facility] [place] [facility] [place] Address [address] [place] [id number] Care Team Providers Care Founder President And Ceo Name Role Phone MAXI FULLER Primary Care Provider Unavailflornetin e Insurance Providers: All historical and current [...] Name Patient's Relationship to Policy Awan [facility] June 17, 2013 [id number] Idania BENITEZ PATIENT MEDICARE (WNR) MEDICARE () PART A June 17, 2013 PART A [id number] Idania BENITEZ PATIENT MEDICARE (WNR) MEDICARE () PART B June 17, 2013 PART B [id number] Idania BENITEZ PATIENT MEDICARE (WNR) MEDICARE () PART A June 17, 2013 PART A [id number] Idania BENITEZ PATIENT MEDICARE (WNR) MEDICARE () PART B June 17, 2013 PART B [id number] Idania BENITEZ PATIENT Selected Encounter This section includes the information on record at [place] for the Encounter. Date/Time Encounter Type Encounter Description Reason Provider Source Feb 13, 2024 01:49 PM Outpatient Encounter TELEPHONE/GERIATRIC JOCELYNE VANEGAS Encounter Template Text not used by [place] Plan of Treatment: Future Appointments (+ 6 months) and Future Tests (+/- 45 days) The Plan of Treatment section includes future care activities for the patient from all [place] treatmentfacilities. This section includes future appointments and future orders which are active, pending or scheduled. Future Appointments This section includes appointments that were scheduled to occur 6 months from the date of the Encounter, up to a maximum of 20 appointments. The data comes from all [facility]. Appointment Date/Time Appointment Type Appointme nt Facility Name Feb 25, 2024 09:00 AM AMBULATORY - MEDICINE [facility] [place] Mar 22, 2024 08:00 AM AMBULATORY - MEDICINE [facility] N[facility] Mar 24, 2024 11:00 AM [facility]UL[facility]ORY MEDICINE [place] [facility] Apr 27, 2024 10:30 AM [facility]ULATORY - MEDICINE [facility] Jun 16, 2024 09:00 AM AMBUL[facility]ORY - MEDICINE [facility] [place] 2[place] Active, Pending, and Scheduled Orders This section includes a listing of several types of active, pending, and scheduled orders, including clinic medications orders, diagnostic test orders, procedure orders and consult orders; where the start date of the order is 45 days before the date of the Encounter or 45 days after the date of theEncounter. The data comes from all [facility]. Test Date/Time Test Type Test Details Facility Name Jan 08, 2024 12:00 AM Laboratory - Chemistry Order MICROALBUMIN CREATININE RATIO PANEL URINE (RAND[facility] [place] [facility] Feb 13, 2024 02:59 PM Consult Order COMM[facility]ITY CARE-[facility] NON-SKILLED HOME HEALTH AIDE Cons Tube Station Attendant's Choice [facility] Mar 14, 2024 12:00 AM Laboratory - Chemistry Order MICROALBUMIN CREATININE RATIO PANEL URINE (RANDOM) [facility] Mar 14, 2024 12:00 AM Laboratory - Chemistry Order BASIC METABOLIC PANEL (non-fasting) BLOOD (SST-SERUM) [facility] Mar 14, 2024 12:00 AM Laboratory - Chemistry Order IRON & TIBC PANEL BLOOD (SST-SERUM) [facility] Mar 14, 2024 12:00 AM Laboratory - Chemistry Order CBC BLOOD (LAV-BLOOD) [facility] Mar 14, 2024 12:00 AM Laboratory - Chemistry Order FERRITIN BLOOD (SST-SERUM) [facility] Social History: Smoking Status (Most current) and Tobacco Use (All prior to encounter date) This section includes the most current, and the historical, smoking and tobacco- related health factors from the [place] facility where the Encounter took place. Current Smoking Status This section includes the most current smoking, or tobacco-related health factor, from the [place] facility where the Encounter took place. Date/Time Current Smoking Status Comment Facil ity Oct 21, 2019 10:30 AM [place]-TOBACCO FORMER USER [facility] Tobacco Use History This section includes a history of the smoking, or tobacco-related health factors, that were collected on or before the date of the Encounter. The data comes from the [place] facility where the Encounter took place. Date/Time Smoking Status/Tobacco Use Comment F acility Oct 21, 2019 10:30 AM [place]-TOBACCO QUIT 15 YRS OR MORE [facility] Advance Directives: All historical and current Section Date Range: From patient's date of to the date document was created. This section includes ALL of a patient's completed or amended [place] Advance and Rescinded Directives. The entries below indicate that a directive exists for the patient, but an actual copy is not included with this document. The data comes from all [place] facilities. Date Advance Directives Provider Source Oct 03, 2016 ADVANCE DIRECTIVE ELIZABETH SOSA Encounter Notes: All associated encounter notes This section contains the clinical notes associated to the Encounter. Date/Time Encounter Note(s) Provider Source Feb 13, 2024 01:49 PM GERIATRIC MEDICINE NOTE: LOCAL TITLE: PERSONAL CARE SERVICES CASE MIX TOOL STANDARD TITLE: GERIATRIC MEDICINE NOTE DATE OF NOTE: FEB 13, 2024@13:49:18 ENTRY DATE: FEB 13, 2024@13:49:18 AUTHOR: YOAV-MAXINE,PAYAL EXP COSIGNER: URGENCY: STATUS: COMPLETED HCBS Case Mix & Budget Tool (CASE MIX) Date Given: 02/13/2024 Clinician: Payal Plata Location: [facility] Phone [facility] Rn : Prudencio Benitez SSN: [id number] : [birth year] ([birth year]) Gender: Male Type of Evaluation: Annual Anticipated Start Date: 02/13/2024 Anticipated Length of Service: 12 months Case Mix Level: L ADL Category: Low Questions and Answers: Q1. DRESSING 0 Can dress without help of any kind. Q2. GROOMING 0 Can comb your hair, wash your face, shave or brush your teeth without help of any kind. Q3. BATHING 0 Can bathe or shower without any help. Q4. EATING *2 Need and get help in cutting food, buttering bread or arranging food. Q5. BED MOBILITY 0 Can move in bed without any help. Q6. TRANSFERRING 0 Can get in and out of a bed or chair without help of any kind. Q7. WALKING *2 Need and get help from one person to help you walk. Q8. BEHAVIOR 1 Occasional staff intervention / anxious, irritable, lethargic, demanding / responds to cues. Q9. COMMUNICATION 0 Understood. Q10. TOILETING 0 Can use the toilet without help, including adjusting clothing. Q11. MDS HC 2.0/CPS Cognitive Skill for Daily Decision Making 1 Modified [place] - some difficulty in new situations only. Q12. MDS 2.0/CPS: Short Term Memory (recall of what was learned or known) 0 Short-term memory okay- seems/appears to recall after 5 minutes Q13. SPECIAL TREATMENTS 0 No [place] Q14. CLINICAL MONITORING 0 Less than once a day Q15. SPECIAL NURSING No Q16. 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 SOURCES 2. Informant, 3. Medical Record /israel/ Payal Plata RN RN Signed: 02/13/2024 13:50 PAYAL PLATA [place] [facility]
--- OUTSIDE RECORDS SUMMARY | 2024-03-09 09:12 | XMS_ITS ---
Author Name [facility] [place] [facility] [place] Address [address] [place] [address] Care Team Providers Care Nurse Manager Name Role Phone MAXI FULLER Primary Care [...] Name Patient's Relationship to Policy [facility] June 17, 2013 [id number] Idania BENITEZ PATIENT MEDICARE (WN) MEDICARE () PART A June 17, 2013 PART A [id number] Idania BENITEZ PATIENT MEDICARE (WN) MEDICARE () PART B June 17, 2013 PART B [id number] Idania BENITEZ PATIENT MEDICARE (WN) MEDICARE () PART A June 17, 2013 PART A [id number] [id number] Idania BENITEZ PATIENT MEDICARE (WNR) MEDICARE () PART B June 17, 2013 PART B [id number] Idania BENITEZ PATIENT Selected Encounter This section includes the information on record at [place] for the Encounter. Date/Time Encounter Type Encounter Description Reason Pro vider Source Jan 14, 2024 01:47 PM Outpatient Encounter RENAL/NEPHROL(EXCEPT DIALYSIS) [facility] Encounter Template Text not used by [place] Plan of Treatment: Future Appointments (+ 6 months) and Future Tests (+/- 45 days) The Plan of Treatment section includes future care activities for the patient from all [place] treatmentfacilities. This section includes future appointments and future orders which are active, pending or scheduled. Future Appointments This section includes appointments that were scheduled to occur 6 months from the date of the Encounter, up to a maximum of 20 appointments. The data comes from all [place] treatment facilities. Appointment Date/Time Appointment Type Appointme nt Facility Name Feb 25, 2024 09:00 AM AMBULATORY - MEDICINE [facility] Mar 22, 2024 08:00 AM [facility] Mar 24, 2024 11:00 AM AMBULATORY MEDICINE [facility] Apr 27, 2024 10:30 AM AMBULATORY - MEDICINE [facility] [place] [place] [facility] Jun 16, 2024 09:00 AM [facility] Active, Pending, and Scheduled Orders This section includes a listing of several types of active, pending, and scheduled orders, including clinic medications orders, diagnostic test orders, procedure orders and consult orders; where the start date of the order is 45 days before the date of the Encounter or 45 days after the date of theEncounter. The data comes from all [facility]. Test Date/Time Test Type Test Details Facility Name Jan 08, 2024 12:00 AM Laboratory - Chemistry Order MICROALBUMIN CREATININE RATIO PANEL URINE (RANDOM) [facility] [place] [facility] Feb 13, 2024 02:59 PM Consult Order COMMUNITY CARE[facility] NON-SKILLED HOME HEALTH AIDE Cons Outdoor Studies Professor[facility] Lab Results: +/- 30 days of the encounter This section includes the Chemistry and Hematology Lab Results on record with [place] for the patient. Radiology Reports and Pathology Reports are provided separately, in subsequent sections. Lab Results This section contains the Chemistry/Hematology Results that were resulted 30 days before or 30 daysafter the date of the Encounter. Date/Time Source Result Type Result - Unit Interpretation Reference Range Comment Jan 08, 2024 07:40 AM [facility] [place] [facility] PO4 Specimen Type: SERUM No comment entered. Ordering Provider: LUIS ORTIZ Report Released Date/Time: Oct 30, 2023 03:17 PM Reporting Lab: [facility] [place] [facility] [address] [facility] [address] Performing Lab: [facility] [place] [facility] [address] [facility] [address] PO4 2.9 mg/dL 2.5-5.0 Jan 08, 2024 07:40 AM [facility] [place] [facility] PTH INTACT Specimen Type: SERUM No comment entered. Ordering Provider: LUIS ORTIZ Report Released Date/Time: Oct 30, 2023 03:17 PM Reporting Lab: [facility] [place] [facility] [address] [facility] [address] Performing Lab: [facility] [place] [facility] [address] [facility] [address] PTH INTACT 35.1 pg/mL 10-65 Jan 08, 2024 07:40 AM [facility] [place] [facility] URIC ACID Specimen Type: SERUM No comment entered. Ordering Provider: LUIS ORTIZ Report Released Date/Time: Oct 30, 2023 03:17 PM Reporting Lab: [facility] [place] [facility] [address] [facility] [address] Performing Lab: [facility] [place] [facility] [address] [facility] [address] URIC ACID 6.5 mg/dL 3.5-7.2 Jan 08, 2024 07:40 AM [facility] [place] [facility] VITAMIN D (25-OH) Specimen Type: SERUM No comment entered. Ordering Provider: LUIS ORTIZ Report Released Date/Time: Oct 30, 2023 03:17 PM Reporting Lab: [facility] [place] [facility] [address] [facility] [address] Performing Lab: [facility] [place] [facility] [address] [facility] [address] VITAMIN D (25-OH) 34 ng/mL 20-50 Jan 08, 2024 07:40 AM [facility] MAGNESIUM Specimen Type: SERUM No comment entered. Ordering Provider: LUIS ORTIZ Report Released Date/Time: Oct 30, 2023 03:17 PM Reporting Lab: [address] [address] Performing Lab: [address] [address] MAGNESIUM 2.1 mg/dL 1.6-2.6 Jan 08, 2024 07:40 AM [facility] FERRITIN Specimen Type: SERUM No comment entered. Ordering Provider: LUIS ORTIZ Report Released Date/Time: Oct 30, 2023 03:17 PM Reporting Lab: [address] [address] Performing Lab: [address] [address] FERRITIN 427 ng/mL H 20-300 Jan 08, 2024 07:40 AM [facility] BASIC METABOLIC PANEL (non-fasting) Specimen Type: SERUM No comment entered. Ordering Provider: LUIS ORTIZ Report Released Date/Time: Oct 30, 2023 03:17 PM Reporting Lab: [address] [address] Performing Lab: [address] [address] UREA NITROGEN 13 mg/dL 7-25 GLUCOSE 131 mg/dL H 65-100 SODIUM 142 mmol/L 135-145 POTASSIUM 4.7 mmol/L 3.5-5.0 CHLORIDE 105 mmol/L 100-110 CO2 26 meq/L 20-30 CREATININE, Serum 1.05 mg/dL 0.50-1.40 eGFR(CKD-EPI 2020) 74 mL/min >60 Jan 08, 2024 07:40 AM [facility] CHOLESTEROL Specimen Type: SERUM No comment entered. Ordering Provider: LUIS ORTIZ Report Released Date/Time: Oct 30, 2023 03:17 PM Reporting Lab: [facility] [place] [facility] [address] [facility] [address] Performing Lab: [facility] [place] [place] [facility] [address] [facility] [address] CHOLESTEROL 148 mg/dL Jan 08, 2024 07:40 AM [facility] [place] [facility] IRON & TIBC PANEL Specimen Type: SERUM No comment entered. Ordering Provider: LUIS ORTIZ Report Released Date/Time: Oct 30, 2023 03:17 PM Reporting Lab: [facility] [place] [facility] [address] [facility] [address] Performing Lab: [place] [address] [address] TIBC 255 ug/dL 204-475 IRON 137 ug/dL 40-160 Transferrin Saturation 53.8 H 20.0-50.0 Transferrin (TRF) 193 mg/dL L 200-360 Jan 08, 2024 07:40 AM [facility] HDL CHOLESTEROL Specimen Type: SERUM No comment entered. Ordering Provider: LUIS ORTIZ Report Released Date/Time: Oct 30, 2023 03:17 PM Reporting Lab: [facility] [place] [facility] [address] [facility] [address] Performing Lab: [facility] [address] [address] HDL CHOLESTEROL 50 mg/dL 40-60 Jan 08, 2024 07:40 AM [facility] CALCIUM Specimen Type: SERUM No comment entered. Ordering Provider: LUIS ORTIZ Report Released Date/Time: Oct 30, 2023 03:17 PM Reporting Lab: [place] [facility] [address] [facility] [address] Performing Lab: [facility] [place] [address] [address] CALCIUM 9.4 mg/dL 8.5-10.2 Jan 08, 2024 07:40 AM [facility] ALBUMIN Specimen Type: SERUM No comment entered. Ordering Provider: LUIS ORTIZ Report Released Date/Time: Oct 30, 2023 03:17 PM Reporting Lab: [address] [address] Performing Lab: [facility] [address] [address] ALBUMIN 3.6 g/dL 3.5-5.0 Jan 08, 2024 07:40 AM [facility] ALKALINE PHOSPHATASE Specimen Type: SERUM No comment entered. Ordering Provider: LUIS ORTIZ Report Released Date/Time: Oct 30, 2023 03:17 PM Reporting Lab: [address] [address] Performing Lab: [address] [address] ALKALINE PHOSPHATASE 89 U/L 40-150 Jan 08, 2024 07:40 AM [facility] CBC Specimen Type: BLOOD No comment entered. Ordering Provider: LUIS ORTIZ Report Released Date/Time: Oct 30, 2023 03:17 PM Reporting Lab: [address] [address] Performing Lab: [address] [address] WBC 5.57 10*3/uL 4.50-11.00 RBC 5.11 10*6/uL [...] and tobacco- related health factors from the [place] facility where the Encounter took place. Current Smoking Status This section includes the most current smoking, or tobacco-related health factor, from the [place] facility where the Encounter took place. Date/Time Current Smoking Status Comment Facil ity Oct 21, 2019 10:30 AM [place]-TOBACCO FORMER USER [facility] Tobacco Use History This section includes a history of the smoking, or tobacco-related health factors, that were collected on or before the date of the Encounter. The data comes from the [place] facility where the Encounter took place. Date/Time Smoking Status/Tobacco Use Comment F acility Oct 21, 2019 10:30 AM [place]-TOBACCO QUIT 15 YRS OR MORE [facility] Advance Directives: All historical and current Section Date Range: From patient's date of to the date document was created. This section includes ALL of a patient's completed or amended [place] Advance and Rescinded Directives. The entries below indicate that a directive exists for the patient, but an actual copy is not included with this document. The data comes from all [place] facilities. Date Advance Directives Provider Source Oct 03, 2016 ADVANCE DIRECTIVE ELIZABETH SOSA [facility] Encounter Notes: All associated encounter notes This section contains the clinical notes associated to the Encounter. Date/Time Encounter Note(s) Provider Source Jan 14, 2024 01:48 PM LETTERS: LOCAL TITLE: PATIENT LETTER (B) STANDARD TITLE: LETTERS DATE OF NOTE: JAN 14, 2024@13:48 ENTRY DATE: JAN 14, 2024@13:48:22 AUTHOR: BELLA ANN COSIGNER: URGENCY: STATUS: COMPLETED JAN 14, 2024 LULU BENITEZ [address] [place] [id number] Dear LULU BENITEZ Thank you for choosing the Department of [facility] ([place]) [facility] as your primary choice for health care. As a partner in your health care, we are contacting you in writing since we have been unsuccessful in our attempts to reach you to date. We want to assure you we are doing everything possible to schedule Veterans for their VA medical care appointments. Our records indicate you are due for an appointment in NEPHROLOGY. If you would like to be seen, please contact [facility] at ext. [phone] to schedule an appointment. Thank you for your service to our nation, and we look forward to hearing from you soon. Sincerely, [facility] [address] [facility] [address] [place] [address] [place] [address] [place] [facility] [address] [facility] [address] [place] [address] [place] [address] ext. [phone] [place] [facility] [address] [facility] [address] [place] [address] [place] [address] ext. 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
--- OUTSIDE RECORDS SUMMARY | 2024-03-09 09:12 | XMS_ITS | Encounter Summary ---
Author Name [facility] [place] Organization [place] Address [address] [place] [address] Care Team Providers Care Automotive Leasing Sales Representative Name Role Phone MAXI FULLER Primary Care [...] Name Patient's Relationship to Policy Awan [facility] June 17, 2013 [id number] Idania BENITEZ PATIENT MEDICARE (WNR) MEDICARE () PART B June 17, 2013 PART B [id number] [phone] Idania BENITEZ PATIENT MEDICARE (WNR) MEDICARE () PART A June 17, 2013 PART A [id number] Idania BENITEZ PATIENT MEDICARE (WNR) MEDICARE () PART A June 17, 2013 PART A [id number] Idania BENITEZ PATIENT MEDICARE (WNR) MEDICARE () PART B June 17, 2013 PART B [id number] ELLENМАРИЯW AYNE PATIENT Selected Encounter This section includes the information on record at PA for the Encounter. Date/Time Encounter Type Encounter Description Reason Pro vider Source Dec 24, 2023 12:00 AM Outpatient Encounter COMMUNITY CARE CONSULT IHE Encounter Template Text not used by PA Plan of Treatment: Future Appointments (+ 6 months) and Future Tests (+/- 45 days) The Plan of Treatment section includes future care activities for the patient from all PA treatmentfacilities. This section includes future appointments and future orders which are active, pending or scheduled. Future Appointments This section includes appointments that were scheduled to occur 6 months from the date of the Encounter, up to a maximum of 20 appointments. The data comes from all PA treatment facilities. Appointment Date/Time Appointment Type Appointme nt Facility Name Jan 13, 2024 10:30 AM [facility] [place] Feb 25, 2024 09:00 AM AMBULATORY - MEDICINE [facility] Mar 22, 2024 08:00 AM [facility]UL[facility]ORY MEDICINE [facility] [place] Mar 24, 2024 11:00 AM [place] [place] [facility] Apr 27, 2024 10:30 AM [facility]ORY [facility] [place] Jun 16, 2024 09:00 AM AMBULATORY - MEDICINE [facility] Active, Pending, and Scheduled Orders This section includes a listing of several types of active, pending, and scheduled orders, including clinic medications orders, diagnostic test orders, procedure orders and consult orders; where the start date of the order is 45 days before the date of the Encounter or 45 days after the date of theEncounter. The data comes from all [facility]. Test Date/Time Test Type Test Details Facility Name Jan 08, 2024 12:00 AM Laboratory - Chemistry Order MICROALBUMIN CREATININE RATIO PANEL URINE (RANDOM) SP [facility] Lab Results: +/- 30 days of the encounter This section includes the Chemistry and Hematology Lab Results on record with PA for the patient. Radiology Reports and Pathology Reports are provided separately, in subsequent sections. Lab Results This section contains the Chemistry/Hematology Results that were resulted 30 days before or 30 daysafter the date of the Encounter. Date/Time Source Result Type Result - Unit Interpretation Reference Range Comment Jan 08, 2024 07:40 AM [facility] [place] PO4 Specimen Type: SERUM No comment entered. Ordering Provider: LUIS ORTIZ Report Released Date/Time: Oct 30, 2023 03:17 PM Reporting Lab: [facility] [place] [address] [address] Performing Lab: [facility] [address] [address] PO4 2.9 mg/dL 2.5-5.0 Jan 08, 2024 07:40 AM [facility] PTH INTACT Specimen Type: SERUM No comment entered. Ordering Provider: LUIS ORTIZ Report Released Date/Time: Oct 30, 2023 03:17 PM Reporting Lab: [facility] [place] [address] [address] Performing Lab: [address] [address] PTH INTACT 35.1 pg/mL -65 Jan 08, 2024 07:40 AM [facility] URIC ACID Specimen Type: SERUM No comment entered. Ordering Provider: LUIS ORTIZ Report Released Date/Time: Oct 30, 2023 03:17 PM Reporting Lab: [facility] [address] [address] Performing Lab: [address] [address] URIC ACID 6.5 mg/dL 3.5-7.2 Jan 08, 2024 07:40 AM [facility] VITAMIN D (25-OH) Specimen Type: SERUM No comment entered. Ordering Provider: LUIS ORTIZ Report Released Date/Time: Oct 30, 2023 03:17 PM Reporting Lab: [facility] [place] [address] [address] Performing Lab: [facility] [address] VITAMIN D (25-OH) 34 ng/mL 20-50 Jan 08, 2024 07:40 AM [facility] MAGNESIUM Specimen Type: SERUM No comment entered. Ordering Provider: LUIS ORTIZ Report Released Date/Time: Oct 30, 2023 03:17 PM Reporting Lab: [address] [address] Performing Lab: [address] [address] MAGNESIUM 2.1 mg/dL 1.6-2.6 Jan 08, 2024 07:40 AM [facility] FERRITIN Specimen Type: SERUM No comment entered. Ordering Provider: LUIS ORTIZ Report Released Date/Time: Oct 30, 2023 03:17 PM Reporting Lab: [address] [address] Performing Lab: [address] [address] FERRITIN 427 ng/mL H 20-300 Jan 08, 2024 07:40 AM [facility] BASIC METABOLIC PANEL (non-fasting) Specimen Type: SERUM No comment entered. Ordering Provider: LUIS ORTIZ Report Released Date/Time: Oct 30, 2023 03:17 PM Reporting Lab: [address] [address] Performing Lab: [address] [address] UREA NITROGEN 13 mg/dL 7-25 GLUCOSE 131 mg/dL H 65-100 SODIUM 142 mmol/L 135-145 POTASSIUM 4.7 mmol/L 3.5-5.0 CHLORIDE 105 mmol/L 100-110 CO2 26 meq/L 20-30 CREATININE, Serum 1.05 mg/dL 0.50-1.40 eGFR(CKD-EPI 2020) 74 mL/min >60 Jan 08, 2024 07:40 AM [facility] CHOLESTEROL Specimen Type: SERUM No comment entered. Ordering Provider: LUIS ORTIZ Report Released Date/Time: Oct 30, 2023 03:17 PM Reporting Lab: [address] [place] [address] Performing Lab: [place] [facility] [place] [facility] [address] [address] CHOLESTEROL 148 mg/dL Jan 08, 2024 07:40 AM [facility] [place] [facility] IRON & TIBC PANEL Specimen Type: SERUM No comment entered. Ordering Provider: LUIS ORTIZ Report Released Date/Time: Oct 30, 2023 03:17 PM Reporting Lab: [place] [facility] [place] [facility] [address] [address] Performing Lab: [place] [place] [place] [address] [address] TIBC 255 ug/dL 204-475 IRON 137 ug/dL 40-160 Transferrin Saturation 53.8 H 20.0-50.0 Transferrin (TRF) 193 mg/dL L 200-360 Jan 08, 2024 07:40 AM [facility] HDL CHOLESTEROL Specimen Type: SERUM No comment entered. Ordering Provider: LUIS ORTIZ Report Released Date/Time: Oct 30, 2023 03:17 PM Reporting Lab: [place] [facility] [place] [facility] [address] [address] Performing Lab: [place] [facility] [place] [place] [address] [address] HDL CHOLESTEROL 50 mg/dL 40-60 Jan 08, 2024 07:40 AM [facility] CALCIUM Specimen Type: SERUM No comment entered. Ordering Provider: LUIS ORTIZ Report Released Date/Time: Oct 30, 2023 03:17 PM Reporting Lab: [facility] [place] [facility] [address] [address] Performing Lab: [place] [place] [place] [address] [address] CALCIUM 9.4 mg/dL 8.5-10.2 Jan 08, 2024 07:40 AM [facility]ITAL[facility] ALBUMIN Specimen Type: SERUM No comment entered. Ordering Provider: LUIS ORTIZ Report Released Date/Time: Oct 30, 2023 03:17 PM Reporting Lab: [facility] [address] [address] Performing Lab: [facility] [address] ALBUMIN 3.6 g/dL 3.5-5.0 Jan 08, 2024 07:40 AM [facility] ALKALINE PHOSPHATASE Specimen Type: SERUM No comment entered. Ordering Provider: LUIS ORTIZ Report Released Date/Time: Oct 30, 2023 03:17 PM Reporting Lab: [facility] [address] [address] Performing Lab: [address] [address] ALKALINE PHOSPHATASE 89 U/L 40-150 Jan 08, 2024 07:40 AM [facility] CBC Specimen Type: BLOOD No comment entered. Ordering Provider: LUIS ORTIZ Report Released Date/Time: Oct 30, 2023 03:17 PM Reporting Lab: [facility] [address] [address] Performing Lab: [facility] [address] [address] WBC 5.57 10*3/uL 4.50-11.00 RBC 5.11 10*6/uL [...] and tobacco- related health factors from the PA facility where the Encounter took place. Current Smoking Status This section includes the most current smoking, or tobacco-related health factor, from the PA facility where the Encounter took place. Date/Time Current Smoking Status Comment Rich lea Oct 21, 2019 10:30 AM VA-TOBACCO FORMER USER [facility] Tobacco Use History This section includes a history of the smoking, or tobacco-related health factors, that were collected on or before the date of the Encounter. The data comes from the PA facility where the Encounter took place. Date/Time Smoking Status/Tobacco Use Comment F acility Oct 21, 2019 10:30 AM PA-TOBACCO QUIT 15 YRS OR MORE [facility] Advance Directives: All historical and current Section Date Range: From patient's date of to the date document was created. This section includes ALL of a patient's completed or amended PA Advance and Rescinded Directives. The entries below indicate that a directive exists for the patient, but an actual copy is not included with this document. The data comes from all PA facilities. Date Advance Directives Provider Source Oct 03, 2016 ADVANCE DIRECTIVE ELIZABETH SOSA [facility] Encounter Notes: All associated encounter notes This section contains the clinical notes associated to the Encounter. Date/Time Encounter Note(s) Provider Source Dec 24, 2023 12:00 AM NONVA CONSULT: LOCAL TITLE: COMMUNITY CARE-CONSULT RESULT NOTE STANDARD TITLE: NONVA CONSULT DATE OF NOTE: DEC 24, 2023 ENTRY DATE: FEB 19, 2024@08:29:07 AUTHOR: ABRAM CAPPS COSIGNER: URGENCY: STATUS: COMPLETED VistA Imaging - Scanned Document SCANNED DOCUMENT SIGNATURE NOT REQUIRED Electronically Filed: 02/19/2024 by: MAYURI CAPPS Crime Lab Technician MAYURI CAPPS [facility]
--- OUTSIDE RECORDS SUMMARY | 2024-03-09 09:12 | XMS_ITS | Encounter Summary ---
Author Name [facility] of [facility] [place] Organization [place] Address [address] [place] [address] Care Team Providers Care Deckhand Engineer Name Role Phone MAXI FULLER Primary Care [...] Name Patient's Relationship to Policy Awan [facility] June 17, 2013 [id number] Idania BENITEZ PATIENT MEDICARE (WNR) MEDICARE () PART A June 17, 2013 PART A [id number] Idania BENITEZ PATIENT MEDICARE (WNR) MEDICARE () PART B June 17, 2013 PART B [id number] Idania BENITEZ PATIENT MEDICARE (WNR) MEDICARE () PART A June 17, 2013 PART A [id number] Idania BENITEZ PATIENT MEDICARE (WNR) MEDICARE () PART B June 17, 2013 PART B [id number] ELLENZZELLIdania PATIENT Selected Encounter This section includes the information on record at ID for the Encounter. Date/Time Encounter Type Encounter Description Reason Pro vider Source Dec 02, 2023 12:00 PM Outpatient Encounter COMMUNITY CARE CONSULT IHE Encounter Template Text not used by ID Plan of Treatment: Future Appointments (+ 6 months) and Future Tests (+/- 45 days) The Plan of Treatment section includes future care activities for the patient from all ID treatmentfacilities. This section includes future appointments and future orders which are active, pending or scheduled. Future Appointments This section includes appointments that were scheduled to occur 6 months from the date of the Encounter, up to a maximum of 20 appointments. The data comes from all ID treatment facilities. Appointment Date/Time Appointment Type Appointme nt Facility Name Jan 13, 2024 10:30 AM AMBULATORY - [facility]IC[facility] Feb 25, 2024 09:00 AM AMBULATORY - MEDICINE [facility] Mar 22, 2024 08:00 AM AMBULATORY - MEDICINE [facility] [place] [place] [place] [facility] Mar 24, 2024 11:00 AM AMBULATORY - MEDICINE [facility] [facility] Apr 27, 2024 10:30 AM AMBULATORY MEDICINE [facility] Active, Pending, and Scheduled Orders This section includes a listing of several types of active, pending, and scheduled orders, including clinic medications orders, diagnostic test orders, procedure orders and consult orders; where the start date of the order is 45 days before the date of the Encounter or 45 days after the date of theEncounter. The data comes from all [facility] Test Date/Time Test Type Test Details Facility Name Jan 08, 2024 12:00 AM Laboratory - Chemistry Order MICROALBUMIN CREATININE RATIO PANEL URINE (RANDOM) [facility] Social History: Smoking Status (Most current) and Tobacco Use (All prior to encounter date) This section includes the most current, and the historical, smoking and tobacco- related health factors from the ID facility where the Encounter took place. Current Smoking Status This section includes the most current smoking, or tobacco-related health factor, from the ID facility where the Encounter took place. Date/Time Current Smoking Status Comment Facil ity Oct 21, 2019 10:30 AM ID-TOBACCO FORMER USER [facility] Tobacco Use History This section includes a history of the smoking, or tobacco-related health factors, that were collected on or before the date of the Encounter. The data comes from the ID facility where the Encounter took place. Date/Time Smoking Status/Tobacco Use Comment F acility Oct 21, 2019 10:30 AM ID-TOBACCO QUIT 15 YRS OR MORE [facility] Advance Directives: All historical and current Section Date Range: From patient's date of to the date document was created. This section includes ALL of a patient's completed or amended ID Advance and Rescinded Directives. The entries below indicate that a directive exists for the patient, but an actual copy is not included with this document. The data comes from all ID facilities. Date Advance Directives Provider Source Oct 03, 2016 ADVANCE DIRECTIVE ELIZABETH SOSA Encounter Notes: All associated encounter notes This section contains the clinical notes associated to the Encounter. Date/Time Encounter Note(s) Provider Source Dec 02, 2023 12:00 PM NONVA CONSULT: LOCAL TITLE: COMMUNITY CARE-CONSULT RESULT NOTE STANDARD TITLE: NONVA CONSULT DATE OF NOTE: DEC 02, 2023@12:00 ENTRY DATE: JAN 12, 2024@13:37:25 AUTHOR: CHRIS SOTELO EXP COSIGNER: URGENCY: STATUS: COMPLETED VistA Imaging - Scanned Document SCANNED DOCUMENT SIGNATURE NOT REQUIRED Electronically Filed: 01/12/2024 by: CHRIS ESCALONA [facility]
--- OUTSIDE RECORDS SUMMARY | 2024-03-09 09:12 | XMS_ITS | Encounter Summary ---
Author Name [facility] [facility] [place] Address [address] [place] [address] Care Team Providers Care Deli Clerk Name Role Phone MAXI FULLER Primary Care [...] Name Patient's Relationship to Policy [facility] June 17, 2013 [id number] Idania BENITEZ PATIENT MEDICARE (WNR) MEDICARE () PART A June 17, 2013 PART A [id number] Idania BENITEZ PATIENT MEDICARE (WNR) MEDICARE () PART B June 17, 2013 PART B [id number] Idania BENITEZ PATIENT MEDICARE (WNR) MEDICARE () PART A June 17, 2013 PART A [id number] Idania BENITEZ PATIENT MEDICARE (WNR) MEDICARE () PART B June 17, 2013 PART B [id number] ELLENZZELL,W AYNE PATIENT Selected Encounter This section includes the information on record at [place] for the Encounter. Date/Time Encounter Type Encounter Description Reason Pro vider Source Jan 13, 2024 12:00 AM Outpatient Encounter COMMUNITY CARE CONSULT IHE Encounter Template Text not used by [place] Plan of Treatment: Future Appointments (+ 6 months) and Future Tests (+/- 45 days) The Plan of Treatment section includes future care activities for the patient from all [place] treatmentfacilities. This section includes future appointments and future orders which are active, pending or scheduled. Future Appointments This section includes appointments that were scheduled to occur 6 months from the date of the Encounter, up to a maximum of 20 appointments. The data comes from all [place] treatment facilities. Appointment Date/Time Appointment Type Appointme nt Facility Name Feb 25, 2024 09:00 AM AMBULATORY - MEDICINE [facility] Mar 22, 2024 08:00 AM AMBULATORY MEDICINE [facility] Mar 24, 2024 11:00 AM [facility] Apr 27, 2024 10:30 AM [facility] Jun 16, 2024 09:00 [facility] Active, Pending, and Scheduled [...] MICROALBUMIN CREATININE RATIO PANEL URINE (RANDOM) SP [facility] [place] [facility] Feb 13, 2024 02:59 PM Consult Order [facility] NON-SKILLED HOME HEALTH AIDE Cons [facility] Lab Results: +/- 30 days of the encounter This section includes the Chemistry and Hematology Lab Results on record with [place] for the patient. Radiology Reports and Pathology Reports are provided separately, in subsequent sections. Lab Results This section contains the Chemistry/Hematology Results that were resulted 30 days before or 30 daysafter the date of the Encounter. Date/Time Source Result Type Result - Unit Interpretation Reference Range Comment Jan 08, 2024 07:40 AM [facility] [place] [facility] PO4 Specimen Type: SERUM No comment entered. Ordering Provider: LUIS ORTIZ Report Released Date/Time: Oct 30, 2023 03:17 PM Reporting Lab: [facility] [place] [facility] [address] [facility] [address] Performing Lab: [facility] [place] [facility] [address] [facility] [address] PO4 2.9 mg/dL 2.5-5.0 Jan 08, 2024 07:40 AM [facility] [place] [facility] PTH INTACT Specimen Type: SERUM No comment entered. Ordering Provider: LUIS ORTIZ Report Released Date/Time: Oct 30, 2023 03:17 PM Reporting Lab: [facility] [place] [facility] [address] [facility] [address] Performing Lab: [facility] [place] [facility] [address] [facility] [address] PTH INTACT 35.1 pg/mL 10-65 Jan 08, 2024 07:40 AM [facility] [place] [facility] VITAMIN D (25-OH) Specimen Type: SERUM No comment entered. Ordering Provider: LUIS ORTIZ Report Released Date/Time: Oct 30, 2023 03:17 PM Reporting Lab: [facility] [place] [facility] [address] [facility] [address] Performing Lab: [facility] [place] [facility] [address] [facility] [address] VITAMIN D (25-OH) 34 ng/mL 20-50 Jan 08, 2024 07:40 AM [facility] [place] [facility] URIC ACID Specimen Type: SERUM No comment entered. Ordering Provider: LUIS ORTIZ Report Released Date/Time: Oct 30, 2023 03:17 PM Reporting Lab: [facility] [place] [facility] [address] [facility] [address] Performing Lab: [facility] [place] [facility] [address] [facility] [address] URIC ACID 6.5 mg/dL 3.5-7.2 Jan 08, 2024 07:40 AM [facility] MAGNESIUM Specimen Type: SERUM No comment entered. Ordering Provider: LUIS ORTIZ Report Released Date/Time: Oct 30, 2023 03:17 PM Reporting Lab: [facility] [address] [facility] [address] Performing Lab: [address] [address] MAGNESIUM 2.1 mg/dL 1.6-2.6 Jan 08, 2024 07:40 AM [facility] FERRITIN Specimen Type: SERUM No comment entered. Ordering Provider: LUIS ORTIZ Report Released Date/Time: Oct 30, 2023 03:17 PM Reporting Lab: [address] [address] Performing Lab: [address] [address] FERRITIN 427 ng/mL H 20-300 Jan 08, 2024 07:40 AM [facility] BASIC METABOLIC PANEL (non-fasting) Specimen Type: SERUM No comment entered. Ordering Provider: LUIS ORTIZ Report Released Date/Time: Oct 30, 2023 03:17 PM Reporting Lab: [address] [address] Performing Lab: [address] [address] UREA NITROGEN 13 mg/dL 7-25 GLUCOSE 131 mg/dL H 65-100 SODIUM 142 mmol/L 135-145 POTASSIUM 4.7 mmol/L 3.5-5.0 CHLORIDE 105 mmol/L 100-110 CO2 26 meq/L 20-30 CREATININE, Serum 1.05 mg/dL 0.50-1.40 eGFR(CKD-EPI 2020) 74 mL/min >60 Jan 08, 2024 07:40 AM [facility] CHOLESTEROL Specimen Type: SERUM No comment entered. Ordering Provider: LUIS ORTIZ Report Released Date/Time: Oct 30, 2023 03:17 PM Reporting Lab: [facility] [place] [facility] [address] [facility] [address] Performing Lab: [facility] [place] [facility] [address] [facility] [address] CHOLESTEROL 148 mg/dL Jan 08, 2024 07:40 AM [facility] [place] [facility] IRON & TIBC PANEL Specimen Type: SERUM No comment entered. Ordering Provider: LUIS ORTIZ Report Released Date/Time: Oct 30, 2023 03:17 PM Reporting Lab: [facility] [place] [facility] [address] [facility] [address] Performing Lab: [place] [facility] [place] [facility] [address] [facility] [address] TIBC 255 ug/dL 204-475 IRON 137 ug/dL 40-160 Transferrin Saturation 53.8 H 20.0-50.0 Transferrin (TRF) 193 mg/dL L 200-360 Jan 08, 2024 07:40 AM [facility] HDL CHOLESTEROL Specimen Type: SERUM No comment entered. Ordering Provider: LUIS ORTIZ Report Released Date/Time: Oct 30, 2023 03:17 PM Reporting Lab: [place] [facility] [place] [facility] [address] [facility] [address] Performing Lab: [facility] [place] [address] [address] HDL CHOLESTEROL 50 mg/dL 40-60 Jan 08, 2024 07:40 AM [facility] CALCIUM Specimen Type: SERUM No comment entered. Ordering Provider: LUIS ORTIZ Report Released Date/Time: Oct 30, 2023 03:17 PM Reporting Lab: [place] [facility] [place] [facility] [address] [facility] [address] Performing Lab: [place] [facility] [place] [facility] [address] [facility] [address] CALCIUM 9.4 mg/dL 8.5-10.2 Jan 08, 2024 07:40 AM [facility] ALBUMIN Specimen Type: SERUM No comment entered. Ordering Provider: LUIS ORTIZ Report Released Date/Time: Oct 30, 2023 03:17 PM Reporting Lab: [facility] [address] [facility] [address] Performing Lab: [facility] [address] ALBUMIN 3.6 g/dL 3.5-5.0 Jan 08, 2024 07:40 AM [facility] ALKALINE PHOSPHATASE Specimen Type: SERUM No comment entered. Ordering Provider: LUIS ORTIZ Report Released Date/Time: Oct 30, 2023 03:17 PM Reporting Lab: [address] [address] Performing Lab: [address] [address] ALKALINE PHOSPHATASE 89 U/L 40-150 Jan 08, 2024 07:40 AM [facility] CBC Specimen Type: BLOOD No comment entered. Ordering Provider: LUIS ORTIZ Report Released Date/Time: Oct 30, 2023 03:17 PM Reporting Lab: [address] [address] Performing Lab: [facility] [address] [address] WBC 5.57 10*3/uL 4.50-11.00 RBC 5.11 10*6/uL [...] and tobacco- related health factors from the [place] facility where the Encounter took place. Current Smoking Status This section includes the most current smoking, or tobacco-related health factor, from the [place] facility where the Encounter took place. Date/Time Current Smoking Status Comment Rich ity Oct 21, 2019 10:30 AM [place]-TOBACCO QUIT 15 YRS OR MORE [facility] Tobacco Use History This section includes a history of the smoking, or tobacco-related health factors, that were collected on or before the date of the Encounter. The data comes from the [place] facility where the Encounter took place. Date/Time Smoking Status/Tobacco Use Comment F acility Oct 21, 2019 10:30 AM [place]-TOBACCO QUIT 15 YRS OR MORE [facility] Advance Directives: All historical and current Section Date Range: From patient's date of to the date document was created. This section includes ALL of a patient's completed or amended [place] Advance and Rescinded Directives. The entries below indicate that a directive exists for the patient, but an actual copy is not included with this document. The data comes from all [place] facilities. Date Advance Directives Provider Source Oct 03, 2016 ADVANCE DIRECTIVE ELIZABETH SOSA Encounter Notes: All associated encounter notes This section contains the clinical notes associated to the Encounter. Date/Time Encounter Note(s) Provider Source Jan 13, 2024 12:00 AM NONVA CONSULT: LOCAL TITLE: COMMUNITY CARE-CONSULT RESULT NOTE STANDARD TITLE: NONVA CONSULT DATE OF NOTE: JAN 13, 2024 ENTRY DATE: MAR 09, 2024@08:57:02 AUTHOR: EV HARRIS EXP COSIGNER: URGENCY: STATUS: COMPLETED VistA Imaging - Scanned Document SCANNED DOCUMENT SIGNATURE NOT REQUIRED Electronically Filed: 03/09/2024 by: EV HARRIS BANKMAN EV HARRIS [facility]
--- OUTSIDE RECORDS SUMMARY | 2024-03-09 09:12 | XMS_ITS | Encounter Summary ---
Author Name [facility] [place] [facility] [place] Address [address] [place] [address] Care Team Providers Care Last Model Maker Name Role Phone MAXI FULLER Primary Care [...] Awan's Name Patient's Relationship to Policy Awan [facility] June 17, 2013 [id number] Idania BENITEZ PATIENT MEDICARE (WNR) MEDICARE () PART B June 17, 2013 PART B [id number] Idania BENITEZ PATIENT MEDICARE (WNR) MEDICARE () PART A June 17, 2013 PART A [id number] Idania BENITEZ PATIENT MEDICARE (WNR) MEDICARE () PART B June 17, 2013 PART B [id number] [id number] Idania BENITEZ PATIENT MEDICARE (WNR) MEDICARE () PART A June 17, 2013 PART A [id number] ELLENIdania HSIEHJESSENIA PATIENT Selected Encounter This section includes the information on record at [place] for the Encounter. Date/Time Encounter Type Encounter Description Reason Provider Source Oct 29, 2023 11:30 AM OFFICE O/P EST MOD 30 MIN PRIMARY CARE/MEDICINE ICD-10-CM E11.9 Type 2 diabetes mellitus without complications MAXI FULLER Manjinder Encounter Template Text not used by [place] Assessments - Encounter Diagnoses This section includes the primary and secondary diagnoses documented for the Encounter. Date/Time Primary/Secondary Diagnosis Diagnosis Name Provider Source Nov 11, 2023 03:04 PM PRIMARY Type 2 diabetes mellitus without complications MAXI FULLER [place] Nov 11, 2023 03:04 PM SECONDARY Encounter for immunization SHIRLENE MCKEON [place] Nov 11, 2023 03:04 PM SECONDARY Hyperlipidemia, unspecified MAXI FULLER [place] Plan of Treatment: Future Appointments (+ 6 months) and Future Tests (+/- 45 days) The Plan of Treatment section includes future care activities for the patient from all [place] treatmentfacilities. This section includes future appointments and future orders which are active, pending or scheduled. Future Appointments This section includes appointments that were scheduled to occur 6 months from the date of the Encounter, up to a maximum of 20 appointments. The data comes from all [place] treatment facilities. Appointment Date/Time Appointment Type Appointme nt Facility Name Jan 13, 2024 10:30 AM AMBULATORY - MEDICINE [place] [facility] Feb 25, 2024 09:00 AM AMBULATORY - MEDICINE [facility] Mar 22, 2024 08:00 AM AMBULATORY MEDICINE [place] [facility] Mar 24, 2024 11:00 AM AMBULATORY - MEDICINE [place] [facility] Apr 27, 2024 10:30 AM AMBULATORY MEDICINE [facility] Lab Results: +/- 30 days of the encounter This section includes the Chemistry and Hematology Lab Results on record with [place] for the patient. Radiology Reports and Pathology Reports are provided separately, in subsequent sections. Lab Results This section contains the Chemistry/Hematology Results that were resulted 30 days before or 30 daysafter the date of the Encounter. Date/Time Source Result Type Result - Unit Interpretation Reference Range Comment Oct 29, 2023 12:33 PM [facility] MICROSCOPIC AUTOMATED, URINE Specimen Type: URINE Comment: If Glucose = >500 and Ketones are positive, please alert the Physician. Ordering Provider: MAXI FULLER Report Released Date/Time: Oct 29, 2023 12:03 PM Reporting Lab: [facility] [address] [facility] [address] Performing Lab: [address] [address] UA WBC 11-20 /[HPF] H 0-5 UA BACTERIA 1+ /[HPF] NoneObs UA MUCUS FEW /[LPF] Trace UA CALCIUM OXALATE CRYSTALS MODERATE /[HPF] Not Established UA RBC TNTC /[HPF] 0-3 Oct 29, 2023 12:33 PM [facility] URINALYSIS Specimen Type: URINE Comment: If Glucose = >500 and Ketones are positive, please alert the Physician. Ordering Provider: MAXI FULLER Report Released Date/Time: Oct 29, 2023 12:03 PM Reporting Lab: [address] [address] Performing Lab: [address] [address] UA COLOR Yellow Yellow UA APPEARANCE Turbid Clear UA GLUCOSE Normal mg/dL Negative UA KETONES NEGATIVE mg/dL Negative UA BLOOD LARGE mg/dL Negative UA PROTEIN 70 mg/dL Negative UA NITRITE NEGATIVE mg/dL Negative UA BILIRUBIN NEGATIVE mg/dL Negative UA SPECIFIC GRAVITY 1.021 1.016-1.022 UA pH 6.5 5.0-9.0 UA UROBILINOGEN 2 mg/dL <2.0 UA LEUKOCYTE TRACE Negative Oct 27, 2023 07:40 AM [facility] LIVER FUNCTION Specimen Type: SERUM No comment entered. Ordering Provider: MAXI FULLER Report Released Date/Time: Apr 21, 2023 05:32 AM Reporting Lab: [address] [address] Performing Lab: [address] [address] PROTEIN,TOTAL 7.1 g/dL 6.0-8.3 ALBUMIN 3.8 g/dL 3.5-5.0 ALKALINE PHOSPHATASE 79 U/L 40-150 AST 21 U/L 5-34 ALT 23 U/L BILIRUBIN, TOTAL 1.1 mg/dL 0.2-1.2 Oct 27, 2023 07:40 AM [facility] HEMOGLOBIN A1C PANEL Specimen Type: BLOOD Comment: Values obtained from A1C measurements can vary. For atypical A1C assays, a reported value of 7.0 could actually be between 6.72 and 7.28 if measured by a reference method. A reported value of 9.0 could actually be between 8.73 and 9.27. Ref: http://www.ng sp.org/CAPdat a.asp Ordering Provider: MAXI FULLRE Report Released Date/Time: Apr 21, 2023 05:32 AM Reporting Lab: [address] [address] Performing Lab: [address] [address] HEMOGLOBIN A1C 5.9 H 4.0-5.6 Oct 27, 2023 07:40 AM [facility] LIPID PANEL FASTING Specimen Type: SERUM No comment entered. Ordering Provider: MAXI FULLER Report Released Date/Time: Apr 21, 2023 05:32 AM Reporting Lab: [address] [address] Performing Lab: [address] [address] CHOLESTEROL 148 mg/dL TRIGLYCERIDE 108 mg/dL 0-150 LDL calculated 79 mg/dL 0-129 CHOL/HDL 3.1 HDL CHOLESTEROL 47 mg/dL 40-60 Oct 27, 2023 07:40 AM [facility] BASIC METABOLIC PANEL (fasting) Specimen Type: SERUM No comment entered. Ordering Provider: MAXI FULLER Report Released Date/Time: Apr 21, 2023 05:32 AM Reporting Lab: [address] [address] Performing Lab: [address] [address] UREA NITROGEN 12 mg/dL 7-25 GLUCOSE 111 mg/dL H 65-100 SODIUM 140 mmol/L 135-145 POTASSIUM 4.1 mmol/L 3.5-5.0 CHLORIDE 105 mmol/L 100-110 CO2 25 meq/L 20-30 CREATININE, Serum 1.18 mg/dL 0.50-1.40 eGFR(CKD-EPI 2020) 64 mL/min >60 Oct 27, 2023 07:40 AM [facility] MICROALBUMIN CREATININE RATIO PANEL Specimen Type: URINE No comment entered. Ordering Provider: MAXI FULLER Report Released Date/Time: Apr 21, 2023 05:32 AM Reporting Lab: [facility] [address] [facility] [address] Performing Lab: [facility] [address] [facility] [address] MICROALBUMIN/ CREATININE RATIO 586.6 mg/g H 0-29.9 MICROALBUMIN, QUANTITATIVE 113.4 mg/dL RR UNAVAIL CREATININE URINE 193.32 mg/dL Immunizations: All administered on the encounter date This section contains immunizations associated to the Encounter. Immunization Series Date Issued Reaction Comments INFLUENZA, HIGH-DOSE, TRIVALENT, PF Oct 28 Social History: Smoking Status (Most current) and Tobacco Use (All prior to encounter date) This section includes the most current, and the historical, smoking and tobacco- related health factors from the [place] facility where the Encounter took place. Current Smoking Status This section includes the most current smoking, or tobacco-related health factor, from the [place] facility where the Encounter took place. Date/Time Current Smoking Status Comment Rich lea Oct 29, 2023 11:30 AM VA-TOBACCO FORMER USER [place] Tobacco Use History This section includes a history of the smoking, or tobacco-related health factors, that were collected on or before the date of the Encounter. The data comes from the [place] facility where the Encounter took place. Date/Time Smoking Status/Tobacco Use Comment Juan Pablo gonzalez Oct 29, 2023 11:30 AM VA-TOBACCO QUIT 15 YRS OR MORE [place] Sep 30, 2022 10:30 AM VA-TOBACCO FORMER USER [place] Sep 30, 2022 10:30 AM [place]-TOBACCO QUIT 15 YRS OR MORE [place] Sep 18, 2021 09:30 AM VA-TOBACCO FORMER USER [place] Sep 18, 2021 09:30 AM VA-TOBACCO QUIT 15 YRS OR MORE [place] Sep 28, 2020 09:00 AM VA-TOBACCO FORMER USER [place] Sep 28, 2020 09:00 AM VA-TOBACCO QUIT 15 YRS OR MORE [place] Apr 16, 2018 10:29 AM VA-TOBACCO FORMER USER [place] Apr 16, 2018 10:29 AM VA-TOBACCO QUIT 15 YRS OR MORE [place] Jul 18, 2017 12:44 PM QUIT TOBACCO USE > 7 YEARS AGO [place] Sep 02, 2016 08:40 AM QUIT TOBACCO USE > 7 YEARS AGO quit smoking cigarettes in 1994 [place] Advance Directives: All historical and current Section Date Range: From patient's date of to the date document was created. This section includes ALL of a patient's completed or amended [place] Advance and Rescinded Directives. The entries below indicate that a directive exists for the patient, but an actual copy is not included with this document. The data comes from all [place] facilities. Date Advance Directives Provider Source Oct 03, 2016 ADVANCE DIRECTIVE ELIZABETH SOSA [facility] Pathology Reports: +/- 30 days of the encounter Pathology Reports For cases when an order for pathology services may have been completed prior to the date of the Encounter, the report list includes the Pathology Reports that were completed up to 30 days before dateof the Encounter. For cases when an order for pathology services may have been completed after the date of the Encounter, the report list also includes the Pathology Reports that were completed up to30 days after date of the Encounter. The data comes from all [place] treatment facilities. Date/Time Pathology Report Provider Source Oct 29, 2023 12:33 PM LR MICROBIOLOGY RE PORT: Reporting Lab: [place] [facility] [CLIA# [id number]] [address] [place] [phone] Accession [UID]: [id number] [[id number]] Received: Oct 30, 2023@09:53 Collection sample: URINE CLEAN CATCH Collection date: Oct 29, 2023 12:33 Site/Specimen: URINE Provider: MAXI FULLER Test(s) ordered: URINE CULTURE(MWROX).......... completed: Nov 03, 2023 09:58 * BACTERIOLOGY FINAL REPORT => Nov 03, 2023 09:58 TECH CODE: [id number] Bacteriology Remark(s): NO GROWTH IN 24 HOURS, FINAL REPORT TO FOLLOW. FINAL AEROBIC REPORT: NO GROWTH =--=--=--=--=--=--=--=-- =--=--=--=--=--=--=--=-- =--=--=--=--=--=--=--=-- =--=-- Performing Laboratory: Bacteriology Report Performed By: [facility] [CLIA# [id number]] [address] [place] [address] [place] [facility] Encounter Notes: All associated encounter notes This section contains the clinical notes associated to the Encounter. Date/Time Encounter Note(s) Provider Source Oct 29, 2023 11:45 AM PREVENTIVE MEDICIN E NURSING NOTE: LOCAL TITLE: CLINICAL REMINDERS/NURSING STANDARD TITLE: PREVENTIVE MEDICINE NURSING NOTE DATE OF NOTE: OCT 29, 2023@11:45 ENTRY DATE: OCT 29, 2023@11:45:27 AUTHOR: FRIDA MCKEON EXP COSIGNER: URGENCY: STATUS: COMPLETED Advance Directive Screen MH AD: Patient has an Advance Directive on file at this [facility]. No updates are needed at this time. The patient received education about Advance Directives and written notification of his/her rights. Depression Screening: Perform PHQ-2 A PHQ-2 screen was performed. The score was 0 which is a negative screen for depression. Over the past two weeks, how often have you been bothered by the following problems? 1. Little interest or pleasure in doing things Not at all 2. Feeling down, depressed, or hopeless Not at all Falls & Incontinence Screen: Falls Screen: During the past 12 months, did the patient report any falls? 4. No falls within the past year. Incontinence Screen: During the past 12 months, has the patient has any characteristics of incontinence (ability, voiding, leakage, etc.)? No incontinence. Tobacco Use Screening: The patient is a former tobacco user. The patient quit fifteen or more years ago. Influenza Immunization: Influenza, High-Dose, Trivalent, Preservative Free (Fluzone-Syringe) Administered: INFLUENZA, HIGH-DOSE, TRIVALENT, PF Date Administered: Oct 29, 2023 11:30 Band Edger: SANOFI PASTEUR Lot: [id number] Exp Date: Aug 16, 2024 [facility]: [id number] Admin Route/Site: INTRAMUSCULAR/LEFT DELTOID Dosage: 0.5mL Vaccine Information Statement(s): INFLUENZA(FLU) VACC(INACTIVATED OR RECOMBINANT)VIS Sep 22, 2020 ([place]) Order By: Policy Administered By: Frida Mckeon The Influenza Vaccine Information Statement (VIS) was reviewed with the patient/caregiver which lists the benefits and risks of the vaccine and the risks of not receiving the Influenza vaccine. The patient/caregiver denied any prior severe reaction to this vaccine or its components or a severe allergic reaction, such as anaphylaxis, to any vaccine or any injectable therapy. The patient/caregiver gave verbal consent to receive the vaccine. Alcohol Use Screen (AUDIT-C): Alcohol Screen: SCREEN FOR ALCOHOL (AUDIT-C) An alcohol screening test (AUDIT-C) was negative (score=0). 1. How often did you have a drink containing alcohol in the past year? Consider a drink to be a 12 ounce can or bottle of regular beer, 8 ounces of malt liquor, a 5 ounce glass of table wine, or a 1.5 ounce shot of liquor (like scotch, gin, or vodka). Never 2. How many drinks containing alcohol did you have on a typical day when you were drinking in the past year? Response not required due to responses to other questions. 3. How often did you have six or more drinks on one occasion in the past year? Response not required due to responses to other questions. COVID-19 Immunization: Referred to another clinic for immunization (desired vaccine unavailable at this location) /israel/ ARIANNA MAKI 10 Signed: 10/29/2023 11:50 FRIDA MCKEONFIELD Oct 29, 2023 06:59 AM PHYSICIAN NOTE: LOCAL TITLE: NOTE STANDARD TITLE: PHYSICIAN NOTE DATE OF NOTE: OCT 29, 2023@06:59 ENTRY DATE: OCT 29, 2023@06:59:38 AUTHOR: MAXI FULLER EXP COSIGNER: URGENCY: STATUS: COMPLETED HISTORY OF PRESENT ILLNESS: LULU BENITEZ is a 73 yo MALE who presents at the [facility] for f/u to DM II and hyperlipidemia. Labs completed. Active problems - Computerized Problem List is the source for the followin. Vitamin D deficiency 2. Type 2 diabetes mellitus 3. Colonoscopy Screening 4. Fatty liver 5. Parkinson's disease 6. Hypercholesterolemia Active and Recently Outpatient Medications (including Supplies): Active Outpatient Medications Status ======= 1) ATORVASTATIN CALCIUM 40MG TAB TAKE ONE-HALF TABLET BY ACTIVE MOUTH DAILY FOR CHOLESTEROL 2) CARBIDOPA 25/LEVODOPA 100MG TAB TAKE 2 TABLETS BY ACTIVE MOUTH EVERY MORNING AND TAKE 1 TABLET TWICE DAILY FOR PARKINSON'S DISEASE 3) MELATONIN 5MG CAP/TAB TAKE TWO CAPSULE/TABLET BY ACTIVE MOUTH AT BEDTIME FOR SLEEP DISORDER 4) POLYETHYLENE GLYCOL 3350 ORAL PWDR TAKE 17 GRAMS (1 ACTIVE CAPFUL) BY MOUTH TWICE DAILY NEEDED FOR CONSTIPATION [MIX WITH 4 TO 8OZ. OF BEVERAGE] 5) RASAGILINE MESYLATE 1MG TAB TAKE ONE TABLET BY MOUTH ACTIVE ONCE DAILY Active Non-VA Medications Status ======= 1) Non-VA CHOLECALCIF 50MCG (D3-2,000UNIT) TAB 2000UNIT ACTIVE BY MOUTH DAILY 2) Non-VA VITAMIN B COMPLEX CAP 1 CAPSULE BY MOUTH DAILY ACTIVE 7 Total Medications ALLERGIES: ========= Patient has answered NKA LAB HISTORY: CHEM 7 TREND Collection DT Spec GLUCOSE BUN CREATIN Sodium K+/Pot CL CO2 10/27/2023 07:40 SERUM 111 H 12 1.18 140 4.1 105 25 03/24/2023 07:33 SERUM 100 18 1.32 144 4.4 107 27 09/23/2022 07:51 SERUM 98 16 1.25 141 4.3 106 25 03/15/2022 08:11 SERUM 117 H 15 1.08 142 4.9 106 28 09/07/2021 08:25 SERUM 109 H 15 1.09 142 4.4 109 24 HEMOGLOBIN A1C TREND Collection DT Spec HGBA1c 10/27/2023 07:40 BLOOD 5.9 H 03/24/2023 07:33 BLOOD 5.9 H 09/23/2022 07:51 BLOOD 5.8 H 03/15/2022 08:11 BLOOD 5.8 H 09/07/2021 08:25 BLOOD 5.9 H LIPID PANEL TREND Collection DT Spec CHOL HDL CHO/HDL LDL-c TRIG 10/27/2023 07:40 SERUM 148 47 3.1 79 108 03/24/2023 07:33 SERUM 147 49 3.0 78 102 03/15/2022 08:11 SERUM 140 53 2.6 69 88 03/30/2021 08:41 SERUM 145 49 3.0 72 118 09/25/2020 08:33 SERUM 145 43 3.4 80 109 LIVER PANEL TREND Collection DT Spec AST ALT T BILI ALK RICARDO T. PROT ALBUMIN 10/27/2023 07:40 SERUM 21 23 1.1 79 7.1 3.8 03/24/2023 07:33 SERUM 19 18 1.0 76 7.1 3.9 03/15/2022 08:11 SERUM 20 25 0.9 78 7.0 3.8 03/30/2021 08:41 SERUM 15 <6 1.3 H 75 7.1 3.8 09/25/2020 08:33 SERUM 21 9 0.8 70 6.7 3.7 HISTORY: PERIOD OF SERVICE - [facility] FROM Sep TO May COMBAT SERVICE INDICATED: No VITAL SIGNS: Blood Pressure 115/73 (10/29/2023 11:44) Pulse 69 (10/29/2023 11:44) Respiration 18 (10/29/2023 11:44) Pulse Oximetry 97% (10/29/2023 11:44) Temperature 97.1 F [36.2 C] (10/29/2023 11:44) Pain 0 (10/29/2023 11:44) Height 68 in [172.7 cm] (10/29/2023 11:44) Weight 178.6 lb [81.01 kg] (10/29/2023 11:44) BMI BMI: 27.2 REVIEW OF SYSTEMS: ENT: No sore throat, no cough CARDIOVASCULAR: No chest pain, no palpitations RESPIRATORY: No SOB, no wheezing GASTROINTESTINAL: No abd pain, no N/V/D GENITOURINARY: No urinary symptoms MUSCULOSKELETAL: No joint pain EXAMINATION: GENERAL: WD/WN in NAD HEENT: Moist mucosa NECK: Supple, no carotid bruits HEART: RRR, S1-S2, no murmurs LUNGS: CTA B/L ABDOMEN: Soft, NT/ND, + BS x 4 Quads PERIPH PULSES: 2+ B/L EXTREMITIES: FROM x 4, no edema ASSESSMENT/PLAN: 1. Hyperlipidemia: well controlled on atorvastatin 20mg QHS Collection DT Spec CHOL HDL CHO/HDL LDL-c TRIG 10/27/2023 07:40 SERUM 148 47 3.1 79 108 2. DM Type 2: under excellent dietary control, was on oral medications in the past FBS 111 - A1c 5.9% Eye Exam: 01/13/23 - [facility] Ex[facility]: 04/16/23 - Dr Briscoe - pos PVD, pos DPN Microalbuminuria: 10/27/23 - moderately elevated 3. Microalbuminuria: gradually worsening, does not take NSAIDS, advised to keep well hydrated, will refer to nephrology for further evaluation Oct 27, 2023 URINE mALB/Cr: 586.6 H mg/G 0 - 29.9 Oct 27, 2023 URINE MICROALBUMIN,QUANTITATIVE: 113.4 mg/dL Oct 27, 2023 URINE CREATININE URINE: 193.32 mg/dL Apr 21, 2023 URINE mALB/Cr: 336.4 H mg/G 0 - 29.9 Apr 21, 2023 URINE MICROALBUMIN,QUANTITATIVE: 54.0 mg/dL Apr 21, 2023 URINE CREATININE URINE: 160.54 mg/dL Mar 30, 2021 URINE mALB/Cr: 3.8 mg/G 0 - 29.9 Mar 30, 2021 URINE MICROALBUMIN,QUANTITATIVE: 0.7 mg/dL Mar 30, 2021 URINE CREATININE URINE: 182.19 mg/dL FOLLOW UP: 6 mths - AWE - FBW prior ========= UPCOMING APPOINTMENTS: 02/10/2024 13:30 CWM/NO/OPTOMETRY/CLARA 02/25/2024 09:00 CWM/SO/PODIATRY/HIRAM No barriers; Patient understands and agrees to current treatment plan. If pt has any questions, concerns, or changes in current health status he/she will call or come in to the VA. Medication Reconciliation: Outpatient: Has the patient been taking medications as documented in the EMLR? YES: The patient has been taking medications as documented in the EMLR. Essential Medication List for Review used to complete this medication reconciliation. INCLUDED IN THIS LIST: Alphabetical list of active outpatient prescriptions dispensed from this [facility] (local) and dispensed from another VA or DoD facility (remote) as well as inpatient orders (local, pending and active), local clinic medications, locally documented non-VA medications, and local prescriptions that have or been discontinued in the past 90 days. - All changes in medications, including all non-VA/Herbal/OTC medications were entered into CPRS. - If there were any medications the patient should no longer take, they were discontinued. - The patient/caregiver was instructed to update this list, discard old lists, and take this list to the next appointment, whether with a VA or non-VA provider. JLV Link Data on this list may not be complete. Please check JLV. Allergies/ADRs (Tool #5) FACILITY ALLERGY/ADR -------- No Remote Allergy/ADR Data available for this patient [place] [facility] No Known Allergies Med Recon NoGlossary (Tool #1) INCLUDED IN THIS LIST: Alphabetical list of active outpatient prescriptions dispensed from this [facility] (local) and dispensed from another VA or DoD facility (remote) as well as inpatient orders (local pending and active), local clinic medications, locally documented non-VA medications, and local prescriptions that have or been discontinued in the past 90 days. Non-VA Meds Last Documented On: Oct 03, 2016 NOTE The display of VA prescriptions dispensed from another VA or DoD facility (remote) is limited to active outpatient prescription entries matched to National Drug File at the originating site and may not include some items such as investigational drugs, compounds, etc. NOT INCLUDED IN THIS LIST: Medications self-entered by the patient into personal health records (i.e. My [facility]) are NOT included in this list. Non-VA medications documented outside this [place], remote inpatient orders (regardless of status) and remote clinic medications are NOT included in this list. The patient and provider must always discuss medications the patient is taking, regardless of where the medication was dispensed or obtained. ------ OUTPT ATORVASTATIN CALCIUM 40MG TAB (Status = Active) TAKE ONE-HALF TABLET BY MOUTH DAILY FOR CHOLESTEROL Rx# [id number] Last Released: 09/11/23 Qty/Days Supply: 45 Rx Expiration Date: 06/26/24 Refills Remainin OUTPT CARBIDOPA 25/LEVODOPA 100MG TAB (Status = Active) TAKE 2 TABLETS BY MOUTH EVERY MORNING AND TAKE 1 TABLET TWICE DAILY FOR PARKINSON'S DISEASE Rx# [id number] Last Released: 09/11/23 Qty/Days Supply: 360 Rx Expiration Date: 05/15/24 Refills Remainin Indication: FOR PARKINSON'S DISEASE Non-VA CHOLECALCIF 50MCG (D3-2,000UNIT) TAB TAKE ONE TABLET BY MOUTH DAILY Medication prescribed by Non-VA provider. OUTPT MELATONIN 5MG CAP/TAB (Status = Active) TAKE TWO CAPSULE/TABLET BY MOUTH AT BEDTIME FOR SLEEP DISORDER Rx# [id number] Last Released: 05/19/23 Qty/Days Supply: 180 Rx Expiration Date: 05/15/24 Refills Remainin Indication: FOR SLEEP DISORDER OUTPT POLYETHYLENE GLYCOL 3350 ORAL PWDR (Status = Active) TAKE 17 GRAMS (1 CAPFUL) BY MOUTH TWICE DAILY NEEDED FOR CONSTIPATION [MIX WITH 4 TO 8OZ. OF BEVERAGE] Rx# [id number] Last Released: 05/19/23 Qty/Days Supply: 510/ Rx Expiration Date: 05/15/24 Refills Remainin OUTPT RASAGILINE MESYLATE 1MG TAB (Status = Active) TAKE ONE TABLET BY MOUTH ONCE DAILY Rx# [id number] Last Released: 09/11/23 Qty/Days Supply: 90 Rx Expiration Date: 05/15/24 Refills Remainin Non-VA VITAMIN B COMPLEX CAP TAKE 1 CAPSULE BY MOUTH DAILY Medication prescribed by Non-VA provider. ------ SUPPLIES ------ /israel/ MAXI FULLER MD Primary Care Physician Signed: 10/29/2023 12:07 MAXI FULLER [place]
--- OUTSIDE RECORDS SUMMARY | 2024-03-09 09:12 | XMS_ITS | Encounter Summary ---
Author Name [facility] [place] [facility] [place] [facility] [place] [facility] [place] Address [address] [place] [address] Care Team Providers Care Forger Helper Name Role Phone MAXI FULLER Primary Care [...] Name Patient's Relationship to Policy [facility] June 17, 2013 [id number] Idania BENITEZ PATIENT MEDICARE (WNR) MEDICARE () PART A June 17, 2013 PART A [id number] Idania BENITEZ PATIENT MEDICARE (WNR) MEDICARE () PART B June 17, 2013 PART B [id number] Idania BENITEZ PATIENT MEDICARE (WNR) MEDICARE () PART B June 17, 2013 PART B [id number] Idania BENITEZ PATIENT MEDICARE (WNR) MEDICARE () PART A June 17, 2013 PART A [id number] Idania BENITEZ PATIENT Selected Encounter This section includes the information on record at [place] for the Encounter. Date/Time Encounter Type Encounter Description Reason Provider Source Jan 13, 2024 10:30 AM OFFICE O/P EST MOD 30 MIN RENAL/NEPHROL(EXC EPT DIALYSIS) ICD-10-CM R80.0 Isolated proteinuria BRITTNEY ORTIZ IHE Encounter Template Text not used by [place] Assessments - Encounter Diagnoses This section includes the primary and secondary diagnoses documented for the Encounter. Date/Time Primary/Secondary Diagnosis Diagnosis Name Provider Source Jan 14, 2024 12:56 PM PRIMARY Isolated proteinuria BRITTNEY ORTIZ A [facility] Jan 14, 2024 12:56 PM SECONDARY Hyperlipidemia, unspecified BRITTNEY ORTIZ A [facility] Plan of Treatment: Future Appointments (+ 6 months) and Future Tests (+/- 45 days) The Plan of Treatment section includes future care activities for the patient from all [place] treatmentfacild[facility]. This section includes future appointments and future orders which are active, pending or scheduled. Future Appointments This section includes appointments that were scheduled to occur 6 months from the date of the Encounter, up to a maximum of 20 appointments. The data comes from all [place] treatment facilities. Appointment Date/Time Appointment Type Appointme nt Facility Name Feb 25, 2024 09:00 AM [facility] Mar 22, 2024 08:00 AM [facility] Mar 24, 2024 11:00 AM [facility]BULATORY - [facility]ICINE [facility] Apr 27, 2024 10:30 AM AMBULATORY - MEDICINE [facility] N[facility]L [facility] Jun 16, 2024 09:00 AM [facility] Active, Pending, and Scheduled Orders This section includes a listing of several types of active, pending, and scheduled orders, including clinic medications orders, diagnostic test orders, procedure orders and consult orders; where the start date of the order is 45 days before the date of the Encounter or 45 days after the date of theEncounter. The data comes from all [place] treatment [facility]. Test Date/Time Test Type Test Details Facility Name Jan 08, 2024 12:00 AM Laboratory - Chemistry Order MICROALBUMIN CREATININE RATIO PANEL URINE (RANDOM) SP [facility] [place] [facility] Feb 13, 2024 02:59 PM Consult Order [facility] NON-SKILLED HOME HEALTH AIDE Cons Print [employer] Helper's Choice [facility] [place] [facility] Lab Results: +/- 30 days of the encounter This section includes the Chemistry and Hematology Lab Results on record with [place] for the patient. Radiology Reports and Pathology [...] Oct 30, 2023 03:17 PM Reporting Lab: [place] [facility] [place] [facility] [address] [facility] [address] Performing Lab: [place] [facility] [place] [facility] [address] [facility] [address] PO4 2.9 mg/dL 2.5-5.0 Jan 08, 2024 07:40 AM [facility] [place] [facility] PTH INTACT Specimen Type: SERUM No comment entered. Ordering Provider: LUIS ORTIZ Report Released Date/Time: Oct 30, 2023 03:17 PM Reporting Lab: [facility] [place] [facility] [address] [facility] [address] Performing Lab: [place] [facility] [place] [facility] [address] [facility] [address] PTH INTACT 35.1 pg/mL -65 Jan 08, 2024 07:40 AM [facility] [place] [facility] URIC ACID Specimen Type: SERUM No comment entered. Ordering Provider: LUIS ORTIZ Report Released Date/Time: Oct 30, 2023 03:17 PM Reporting Lab: [facility] [place] [facility] [address] [facility] [address] Performing Lab: [place] [facility] [place] [facility] [address] [facility] [address] URIC ACID 6.5 mg/dL 3.5-7.2 Jan 08, 2024 07:40 AM [facility] VITAMIN D (25-OH) Specimen Type: SERUM No comment entered. Ordering Provider: LUIS ORTIZ Report Released Date/Time: Oct 30, 2023 03:17 PM Reporting Lab: [facility] [place] [facility] [address] [facility] [address] Performing Lab: [facility] [address] [facility] [address] VITAMIN D (25-OH) 34 ng/mL 20-50 Jan 08, 2024 07:40 AM [facility] MAGNESIUM Specimen Type: SERUM No comment entered. Ordering Provider: LUIS ORTIZ Report Released Date/Time: Oct 30, 2023 03:17 PM Reporting Lab: [facility] [address] [address] Performing Lab: [facility] [address] [address] MAGNESIUM 2.1 mg/dL 1.6-2.6 Jan 08, 2024 07:40 AM [facility] FERRITIN Specimen Type: SERUM No comment entered. Ordering Provider: ULIS ORTIZ Report Released Date/Time: Oct 30, 2023 03:17 PM Reporting Lab: [facility] [address] [address] Performing Lab: [facility] [address] [address] FERRITIN 427 ng/mL H 20-300 Jan 08, 2024 07:40 AM [facility] BASIC METABOLIC PANEL (non-fasting) Specimen Type: SERUM No comment entered. Ordering Provider: LUIS ORTIZ Report Released Date/Time: Oct 30, 2023 03:17 PM Reporting Lab: [facility] TRN [facility] [address] [facility] [address] Performing Lab: [facility]TRN [facility] [address] [address] UREA NITROGEN 13 mg/dL 7-25 GLUCOSE 131 mg/dL H 65-100 SODIUM 142 mmol/L 135-145 POTASSIUM 4.7 mmol/L 3.5-5.0 CHLORIDE 105 mmol/L 100-110 CO2 26 meq/L 20-30 CREATININE, Serum 1.05 mg/dL 0.50-1.40 eGFR(CKD-EPI 2020) 74 mL/min >60 Jan 08, 2024 07:40 AM [facility] [place] [facility] HDL CHOLESTEROL Specimen Type: SERUM No comment entered. Ordering Provider: LUIS ORTIZ Report Released Date/Time: Oct 30, 2023 03:17 PM Reporting Lab: [facility]TRN [facility] [address] [facility] [address] Performing Lab: [facility] [address] [address] HDL CHOLESTEROL 50 mg/dL 40-60 Jan 08, 2024 07:40 AM [facility] CHOLESTEROL Specimen Type: SERUM No comment entered. Ordering Provider: LUIS ORTIZ Report Released Date/Time: Oct 30, 2023 03:17 PM Reporting Lab: [facility]TRN [facility] [address] [facility] [address] Performing Lab: [facility]ITALR[facility]TRN [facility] [address] [address] CHOLESTEROL 148 mg/dL Jan 08, 2024 07:40 AM [facility] IRON & TIBC PANEL Specimen Type: SERUM No comment entered. Ordering Provider: LUIS ORTIZ Report Released Date/Time: Oct 30, 2023 03:17 PM Reporting Lab: [facility]TRN [facility] [address] [facility] [address] Performing Lab: [facility]ITALR[facility]TRN [facility] [address] [address] TIBC 255 ug/dL 204-475 IRON 137 ug/dL 40-160 Transferrin Saturation 53.8 H 20.0-50.0 Transferrin (TRF) 193 mg/dL L 200-360 Jan 08, 2024 07:40 AM [facility] CALCIUM Specimen Type: SERUM No comment entered. Ordering Provider: LUIS ORTIZ Report Released Date/Time: Oct 30, 2023 03:17 PM Reporting Lab: [facility] [place] [facility] [address] [facility] [address] Performing Lab: [place] [facility] [place] [address] [address] CALCIUM 9.4 mg/dL 8.5-10.2 Jan 08, 2024 07:40 AM [facility] ALBUMIN Specimen Type: SERUM No comment entered. Ordering Provider: LUIS ORTIZ Report Released Date/Time: Oct 30, 2023 03:17 PM Reporting Lab: [facility] [place] [place] [address] [address] Performing Lab: [facility] W[facility] [address] [address] ALBUMIN 3.6 g/dL 3.5-5.0 Jan 08, 2024 07:40 AM [facility] ALKALINE PHOSPHATASE Specimen Type: SERUM No comment entered. Ordering Provider: LUIS ORTIZ Report Released Date/Time: Oct 30, 2023 03:17 PM Reporting Lab: [facility] W[facility] [address] [address] Performing Lab: [facility] [address] [address] ALKALINE PHOSPHATASE 89 U/L 40-150 Jan 08, 2024 07:40 AM [facility] TRN [facility] CBC Specimen Type: BLOOD No comment entered. Ordering Provider: LUIS ORTIZ Report Released Date/Time: Oct 30, 2023 03:17 PM Reporting Lab: [facility] [address] [address] Performing Lab: [place] [facility] [address] [address] WBC 5.57 10*3/uL 4.50-11.00 RBC 5.11 10*6/uL [...] and tobacco- related health factors from the [place] facility where the Encounter took place. Current Smoking Status This section includes the most current smoking, or tobacco-related health factor, from the [place] facility where the Encounter took place. Date/Time Current Smoking Status Comment Facil ity Oct 21, 2019 10:30 AM [place]-TOBACCO FORMER USER [facility] Tobacco Use History This section includes a history of the smoking, or tobacco-related health factors, that were collected on or before the date of the Encounter. The data comes from the [place] facility where the Encounter took place. Date/Time Smoking Status/Tobacco Use Comment F acility Oct 21, 2019 10:30 AM ND-TOBACCO QUIT 15 YRS OR MORE [facility] Advance Directives: All historical and current Section Date Range: From patient's date of to the date document was created. This section includes ALL of a patient's completed or amended [place] Advance and Rescinded Directives. The entries below indicate that a directive exists for the patient, but an actual copy is not included with this document. The data comes from all [place] facilities. Date Advance Directives Provider Source Oct 03, 2016 ADVANCE DIRECTIVE ELIZABETH SOSA Encounter Notes: All associated encounter notes This section contains the clinical notes associated to the Encounter. Date/Time Encounter Note(s) Provider Source Jan 13, 2024 08:57 AM NEPHROLOGY CONSULT: LOCAL TITLE: CONSULT REPORT/NEPHROLOGY STANDARD TITLE: NEPHROLOGY CONSULT DATE OF NOTE: JAN 13, 2024@08:57 ENTRY DATE: JAN 13, 2024@08:57:58 AUTHOR: HUGO ORTIZ COSIGNER: URGENCY: STATUS: COMPLETED Nephrology Consult 01/13/24 10:30 Blood Pressure: 115/73 (10/29/2023 11:44) Pain: 0 (10/29/2023 11:44) Patient Height: 68 in [172.7 cm] (10/29/2023 11:44) Patient Weight: 178.6 lb [81.01 kg] (10/29/2023 11:44) Pulse: 69 (10/29/2023 11:44) Respiration: 18 (10/29/2023 11:44) Temperature: 97.1 F [36.2 C] (10/29/2023 11:44) Consultation Problem:Macroalbuminuria History:73 year old male with a recent history of increaing of protein in his urine. The patient has a history of hypercholesterolemia, fatty liver and macroalbuminuria. The patient reports that he is not sure how long he has had the protein in his urine. He says he has never been told he has kidney problems He denies hematuria, frothy/foamy urine and has never required dialysis and denies lead exposure. He does report kidney stones in the past with the last being in 2008. He denies any cardiac problems. He has never had CHF, NE, chest painn SOB, edema and has never had sleeping problems. He has never been evaluated for sleep apnea. He has never had hypertension. NO history of a stroke/TIA. He denies lower leg pain with walking relieved with stoppind. He was told he had borderline diabetes for which he was treated for a period of time with Metformin which he is no longer taking. He says his glucose is nicely controlled without medications. He says he do not take NSAIDs(Ibuprofen/Aleve), herbal of OTC medications. He has never required chemotx. His mother and brother had diabetes. NO family history of hypertension, renal failure or dialysis. Past Medical History; Active problems - Computerized Problem List is the source for the followin. Vitamin D deficiency 2. Type 2 diabetes mellitus 3. Colonoscopy Screening 4. Fatty liver 5. Parkinson's disease 6. 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 Family/social Situation- with 2 children; one granddaughter; lives in [facility] Family History Father- from [place]; Mother- had a history of strokes but thought to have from old age Sibling-4sister and 3 brothers( one brother had a [place]/CHF;one sister from parkison disease) Other Relatives Active and Recently Outpatient Medications (including Supplies): Active Outpatient Medications Status 1) ATORVASTATIN CALCIUM 40MG TAB TAKE ONE-HALF [...] ACTIVE ONCE DAILY Active Non-VA Medications Status 1) Non-VA CHOLECALCIF 50MCG (D3-2,000UNIT) TAB 2000UNIT ACTIVE BY MOUTH DAILY 2) Non-VA VITAMIN B COMPLEX CAP 1 CAPSULE BY MOUTH DAILY ACTIVE 7 Total Medications Allergies/Adverse Reactions: Patient has answered NKA Allergies: Patient has answered NKA Review of Systems: Constitutional: no chills no fever no night sweats Head/Neck: no Headache Ear/Nose/Mouth/Throat nostril inflam/lesions throat soreness/lesions/exudates RESP No Cough No SOB No wheezing CARD No Chest Pain No Palpitaions No Periperal edema GI No Abdominal pain No Diarrhea No vomiting ENDO No excessive thirst No Excessive hunger No Weight loss or weight gain : No hematuria No dysuria No proteinuria Physical Exam: Vital Signs:above General:small framed male; alert,cooperative in NAD; HEENT: Neck/Throat: supple; no JVD; no CB; Lungs:clear Heart:RRR; no mudrmur/gallop/rub Abdomen:soft;+BS; no organomegaly Ext:no edema; Assessment and Plans: This is a patient with Stage renal disease with evidence of increasing proteiniuria. Review of labs from Sep 25, 2016 until Dec showed the creatinine fluctuating from 0.92 to 1.32. All of these were normal. HIs most recent creat was 1.05. Review of his GFR from August to the present. Of the 6 GFRs for review, the lowest was 56 onMar 24, the highest and most recent being 74 noted on May 07. His urine microalb/cr ratio was Oct 18, 2017 to April 17, 2021 were normal. Then the most recent two increased. The first was 336.4 on April 21, 2023 and the most recent of 587 noted on Oct 26. There were 7 blood pressure readings from Mar 21, 2022 unti Jan 12 that were normal. in the 105-124/63-79 p=69-84 range. There are no kidney xrays for review. The cause of the macroalbuminuria is not clear. He has a history of being classified as prediabetic and had been treated in the past. His last 5 hgbA1c has been in the 5.9 range. He is no longer on metformin and his hgbA1c continues to be normal. He has no retinopathy or neuropathy. The patient has no history of hypertension with all of his blood pressure readings available for review being normal with no history of peripheral vascular changes with no strokes or NE. A review of his present medications does not show any to be associated with proteinuria. The plan is to recheck his urine protein in 8 weeks. Below are the plans for further evaluation and management of the patient. #1. CKD stage 2a/macroalbunuria: the patient is without uremic sx. The patient's labs from Jan 08, 2024 showed normal potassium(4.7), bicarb(26). His GFR was 74 with a creatinine of 1.05. His urine microalb/cr ratio was 586.6 Oct 26. Urine from Dec is not available for review. The patient will continue his present medical regimen return in two months obtaining labs for that appt. #2. Hypertension: the patient's BP was 127/77 p=79 today. the patient BP is excellent. Will recheck on return. Presently not taking any meds for BP control. #3. Hyperlipidemia:the patient's chol 01/10 was 148, HDL was 50. He is presently on Atovastatin which he should continue with a heart healthy low fat diet and continue to try to exercise. #4. Glucose: the patient's hgbA1c was 5.9 Mar. He is presently not on any glucose lowering medications. There is no evidence to support diabetes at this time. #5. Anemia status: The patient's H/H was 15/46 mcv of 89,(01/10) which is normal. His TIBC was 255, iron was 137, ferritin of 427 and TSAT for 54. His TSAT is slightly increased. Will recheck on return. NO evidence for anemia. #6.CKD-BMR: the patient's labs to define the status of his bones with renal failure from 01/10 showed a calcium of 9.4 mag 2.1, PO4 was 2.9,PTHwas 35,alkphos was 89 and VitD was 34. there is no indication for bone density studies. #7. Nutritional/obesity: The patient's albumin was 3.6 which is normal.His weight was 179 lbs this 01/10. He is encouraged to exercise. This was a 20 minute visit > 50% of which was spent in coeling and coordination of care. The following VA and Non-VA medications were reconciled with the patient: Active Outpatient Medications (including Supplies): ATORVASTATIN CALCIUM 40MG TAB TAKE ONE-HALF TABLET BY ACTIVE MOUTH DAILY FOR CHOLESTEROL CARBIDOPA 25/LEVODOPA 100MG TAB TAKE 2 TABLETS BY MOUTH ACTIVE EVERY MORNING AND TAKE 1 TABLET TWICE DAILY FOR PARKINSON'S DISEASE MELATONIN 5MG CAP/TAB TAKE TWO CAPSULE/TABLET BY MOUTH AT ACTIVE BEDTIME FOR SLEEP DISORDER POLYETHYLENE GLYCOL 3350 ORAL PWDR TAKE 17 GRAMS (1 ACTIVE CAPFUL) BY MOUTH TWICE DAILY NEEDED FOR CONSTIPATION [MIX WITH 4 TO 8OZ. OF BEVERAGE] RASAGILINE MESYLATE 1MG TAB TAKE ONE TABLET BY MOUTH ONCE ACTIVE DAILY Non-VA CHOLECALCIF 50MCG (D3-2,000UNIT) TAB 2000UNIT BY ACTIVE MOUTH DAILY Non-VA VITAMIN B COMPLEX CAP 1 CAPSULE BY MOUTH DAILY ACTIVE /es/ HUGO ORTIZ M.D. BEHAVIORAL MODIFICATION ASSISTANT DRY CELL ASSEMBLY SUPERVISOR Signed: 01/13/2024 12:14 HUGO ORTIZ [facility]
--- OUTSIDE RECORDS SUMMARY | 2024-03-09 09:12 | XMS_ITS ---
Author Name [facility] [place] Organization [place] Address [address] [place] [address] Care Team Providers Care Concrete Engineer Name Role Phone MAXI FULLER Primary [...] Name Patient's Relationship to Policy Awan [facility] June 17, 2013 [id number] Idania BENITEZ PATIENT MEDICARE (WNR) MEDICARE () PART A June 17, 2013 PART A [id number] Idania BENITEZ PATIENT MEDICARE (WNR) MEDICARE () PART B June 17, 2013 PART B [id number] Idania BENITEZ PATIENT MEDICARE (WNR) MEDICARE () PART A June 17, 2013 PART A [id number] Idania BENITEZ PATIENT MEDICARE (WNR) MEDICARE () PART B June 17, 2013 PART B [id number] ELLENZZELLIdania PATIENT Selected Encounter This section includes the information on record at [place] for the Encounter. Date/Time Encounter Type Encounter Description Reason Pro vider Source Feb 13, 2024 01:50 PM Outpatient Encounter COMMUNITY CARE CONSULT IHE Encounter Template Text not used by [place] Plan of Treatment: Future Appointments (+ 6 months) and Future Tests (+/- 45 days) The Plan of Treatment section includes future care activities for the patient from all [place] treatmentfacilities. This section includes future appointments and future orders which are active, pending or scheduled. Future Appointments This section includes appointments that were scheduled to occur 6 months from the date of the Encounter, up to a maximum of 20 appointments. The data comes from all [place] treatment facilities. Appointment Date/Time Appointment Type Appointme nt Facility Name Feb 25, 2024 09:00 AM AMBULATORY - MEDICINE [facility] Mar 22, 2024 08:00 AM [facility] Mar 24, 2024 11:00 AM [place] [place] [facility] [place] [place] [facility] Apr 27, 2024 10:30 AM AMBULATORY - MEDICINE [place] [facility] [place] [facility] Jun 16, 2024 09:00 AM [facility]IC[facility] Active, Pending, and Scheduled Orders This section includes a listing of several types of active, pending, and scheduled orders, including clinic medications orders, diagnostic test orders, procedure orders and consult orders; where the start date of the order is 45 days before the date of the Encounter or 45 days after the date of theEncounter. The data comes from all [facility]. Test Date/Time Test Type Test Details Facility Name Jan 08, 2024 12:00 AM Laboratory - Chemistry Order MICROALBUMIN CREATININE RATIO PANEL URINE (RANDOM) [facility] [place] [facility] Feb 13, 2024 02:59 PM Consult Order COMMUNITY CARE-GEC NON-SKILLED HOME HEALTH AIDE Cons Ram Press Operator's Choice [place] [facility] Mar 14, 2024 12:00 AM Laboratory - Chemistry Order MICROALBUMIN CREATININE RATIO PANEL URINE (RANDOM) [facility] Mar 14, 2024 12:00 AM Laboratory - Chemistry Order BASIC METABOLIC PANEL (non-fasting) BLOOD (SST-SERUM) [facility] Mar 14, 2024 12:00 AM Laboratory - Chemistry Order FERRITIN BLOOD (SST-SERUM) [facility] Mar 14, 2024 12:00 AM Laboratory - Chemistry Order IRON & TIBC PANEL BLOOD (SST-SERUM) [facility] Mar 14, 2024 12:00 AM Laboratory - Chemistry Order CBC BLOOD (LAV-BLOOD) [facility] Social History: Smoking Status (Most current) and Tobacco Use (All prior to encounter date) This section includes the most current, and the historical, smoking and tobacco- related health factors from the [place] facility where the Encounter took place. Current Smoking Status This section includes the most current smoking, or tobacco-related health factor, from the [place] facility where the Encounter took place. Date/Time Current Smoking Status Comment Facil ity Oct 21, 2019 10:30 AM [place]-TOBACCO QUIT 15 YRS OR MORE [facility] Tobacco Use History This section includes a history of the smoking, or tobacco-related health factors, that were collected on or before the date of the Encounter. The data comes from the [place] facility where the Encounter took place. Date/Time Smoking Status/Tobacco Use Comment F acility Oct 21, 2019 10:30 AM [place]-TOBACCO QUIT 15 YRS OR MORE [facility] Advance Directives: All historical and current Section Date Range: From patient's date of to the date document was created. This section includes ALL of a patient's completed or amended [place] Advance and Rescinded Directives. The entries below indicate that a directive exists for the patient, but an actual copy is not included with this document. The data comes from all [facility]. Date Advance Directives Provider Source Oct 03, 2016 ADVANCE DIRECTIVE ELIZABETH SOSA Encounter Notes: All associated encounter notes This section contains the clinical notes associated to the Encounter. Date/Time Encounter Note(s) Provider Source Feb 13, 2024 01:50 PM SOCIAL WORK NOTE: LOCAL TITLE: PERSONAL CARE SERVICES REVIEW STANDARD TITLE: SOCIAL WORK NOTE DATE OF NOTE: FEB 13, 2024@13:50 ENTRY DATE: FEB 13, 2024@13:50:30 AUTHOR: PAYAL PLATA COSIGNER: URGENCY: STATUS: COMPLETED Personal Care Services Review Type of review: Reauthorization Information to complete oversight obtained from: Review of medical record Review of community vendor submitted documentation Community vendor staff Specify Contact: PANKAJ Community vendor Name: [employer] Community vendor point of contact Name: PANKAJ The care plan has been reviewed. Care rendered as authorized. meets administrative eligibility criteria. [place] meets clinical eligibility criteria. Case Mix Tool: Date Completed: Jan Case Mix Score: L First range of hours to be used. Plan: Authorization(s) to remain the same Homemaker/Home Health Aide Standardized Episode of Care (SEOC) SEOC duration: 365 days Hours per SEOC duration: 7 HRS/WEEK Date of next review: 07/27/24 UNABLE TO REACH BY PHONE OR LEAVE . /israel/ Payal Plata RN RN Signed: 02/13/2024 13:52 PAYAL PLATA [place] [facility]
--- OUTSIDE RECORDS SUMMARY | 2024-03-09 09:12 | XMS_ITS | Encounter Summary ---
Author Name [facility] of [place] [place] Organization [place] Address [address] [place] [address] Care Team Providers Care Newspaper Photographer Name Role Phone MAXI FULLER Primary Care [...] Name Patient's Relationship to Policy Awan [facility] June 17, 2013 [id number] Idania BENITEZ PATIENT MEDICARE (WNR) MEDICARE () PART A June 17, 2013 PART A [id number] Idania BENITEZ PATIENT MEDICARE (WNR) MEDICARE () PART B June 17, 2013 PART B [id number] Idania BENITEZ PATIENT MEDICARE (WNR) MEDICARE () PART B June 17, 2013 PART B [id number] [id number] Idania BENITEZ PATIENT MEDICARE (WNR) MEDICARE () PART A June 17, 2013 PART A [id number] ELLENIdania HSIEH AYNE PATIENT Selected Encounter This section includes the information on record at [place] for the Encounter. Date/Time Encounter Type Encounter Description Reason Pro vider Source Dec 11, 2023 12:00 PM Outpatient Encounter COMMUNITY CARE [...] Name Jan 13, 2024 10:30 AM [facility] Feb 25, 2024 09:00 AM AMBULATORY - MEDICINE [facility] Mar 22, 2024 08:00 AM AMBULATORY MEDICINE [facility] Mar 24, 2024 11:00 AM AMBULATORY MEDICINE [facility] [place] [place] [facility] Apr 27, 2024 10:30 AM AMBULATORY MEDICINE [facility] Active, Pending, and Scheduled Orders This section includes a listing of several types of active, pending, and scheduled orders, including clinic medications orders, diagnostic test orders, procedure orders and consult orders; where the start date of the order is 45 days before the date of the Encounter or 45 days after the date of theEncounter. The data comes from all [facility]. Test Date/Time Test Type Test Details Facility Name Jan 08, 2024 12:00 AM Laboratory - Chemistry Order MICROALBUMIN CREATININE RATIO PANEL URINE (RANDOM) SP [facility] Lab Results: +/- 30 days of the encounter This section includes the Chemistry and Hematology Lab Results on record with [place] for the patient. Radiology Reports and Pathology Reports are provided separately, in subsequent sections. Lab Results This section contains the Chemistry/Hematology Results that were resulted 30 days before or 30 daysafter the date of the Encounter. Date/Time Source Result Type Result - Unit Interpretation Reference Range Comment Jan 08, 2024 07:40 AM [facility] PO4 Specimen Type: SERUM No comment entered. Ordering Provider: LUIS ORTIZ Report Released Date/Time: Oct 30, 2023 03:17 PM Reporting Lab: [facility] [address] [address] Performing Lab: [facility] [address] [address] PO4 2.9 mg/dL 2.5-5.0 Jan 08, 2024 07:40 AM [facility] PTH INTACT Specimen Type: SERUM No comment entered. Ordering Provider: LUIS ORTIZ Report Released Date/Time: Oct 30, 2023 03:17 PM Reporting Lab: [address] [address] Performing Lab: [address] [address] PTH INTACT 35.1 pg/mL 10-65 Jan 08, 2024 07:40 AM [facility] URIC ACID Specimen Type: SERUM No comment entered. Ordering Provider: LUIS ORTIZ Report Released Date/Time: Oct 30, 2023 03:17 PM Reporting Lab: [address] [address] Performing Lab: [address] [address] URIC ACID 6.5 mg/dL 3.5-7.2 Jan 08, 2024 07:40 AM [facility] VITAMIN D (25-OH) Specimen Type: SERUM No comment entered. Ordering Provider: LUIS ORTIZ Report Released Date/Time: Oct 30, 2023 03:17 PM Reporting Lab: [address] [address] Performing Lab: [address] [address] VITAMIN D (25-OH) 34 ng/mL 20-50 Jan 08, 2024 07:40 AM [facility] MAGNESIUM Specimen Type: SERUM No comment entered. Ordering Provider: LUIS ORTIZ Report Released Date/Time: Oct 30, 2023 03:17 PM Reporting [facility]: [facility] [address] [address] Performing Lab: [facility] [address] [address] MAGNESIUM 2.1 mg/dL 1.6-2.6 Jan 08, 2024 07:40 AM [facility] FERRITIN Specimen Type: SERUM No comment entered. Ordering Provider: LUIS ORTIZ Report Released Date/Time: Oct 30, 2023 03:17 PM Reporting Lab: [address] [address] Performing Lab: [address] [address] FERRITIN 427 ng/mL H 20-300 Jan 08, 2024 07:40 AM [facility] BASIC METABOLIC PANEL (non-fasting) Specimen Type: SERUM No comment entered. Ordering Provider: LUIS ORTIZ Report Released Date/Time: Oct 30, 2023 03:17 PM Reporting Lab: [address] [address] Performing Lab: [address] [address] UREA NITROGEN 13 mg/dL 7-25 GLUCOSE 131 mg/dL H 65-100 SODIUM 142 mmol/L 135-145 POTASSIUM 4.7 mmol/L 3.5-5.0 CHLORIDE 105 mmol/L 100-110 CO2 26 meq/L 20-30 CREATININE, Serum 1.05 mg/dL 0.50-1.40 eGFR(CKD-EPI 2020) 74 mL/min >60 Jan 08, 2024 07:40 AM [facility] HDL CHOLESTEROL Specimen Type: SERUM No comment entered. Ordering Provider: LUIS ORTIZ Report Released Date/Time: Oct 30, 2023 03:17 PM Reporting Lab: [address] [address] Performing Lab: [facility] [place] [place] [facility] [address] [address] HDL CHOLESTEROL 50 mg/dL 40-60 Jan 08, 2024 07:40 AM [facility] [place] [place] [facility] CHOLESTEROL Specimen Type: SERUM No comment entered. Ordering Provider: LUIS ORTIZ Report Released Date/Time: Oct 30, 2023 03:17 PM Reporting Lab: [place] [facility] [place] [place] [facility] [address] [address] Performing Lab: [facility] [place] [place] [facility] [address] [address] CHOLESTEROL 148 mg/dL Jan 08, 2024 07:[address] [facility] IRON & TIBC PANEL Specimen Type: SERUM No comment entered. Ordering Provider: LUIS ORTIZ Report Released Date/Time: Oct 30, 2023 03:17 PM Reporting Lab: [facility] [place] [facility] [address] [address] Performing Lab: [place] [address] [address] TIBC 255 ug/dL 204-475 IRON 137 ug/dL 40-160 Transferrin Saturation 53.8 H 20.0-50.0 Transferrin (TRF) 193 mg/dL L 200-360 Jan 08, 2024 07:[address] [facility] CALCIUM Specimen Type: SERUM No comment entered. Ordering Provider: LUIS ORTIZ Report Released Date/Time: Oct 30, 2023 03:17 PM Reporting Lab: [facility] [place] [place] [facility] [address] [address] Performing Lab: [facility] [place] [place] [address] [address] CALCIUM 9.4 mg/dL 8.5-10.2 Jan 08, 2024 07:[address] [facility] ALBUMIN Specimen Type: SERUM No comment entered. Ordering Provider: LUIS ORTIZ Report Released Date/Time: Oct 30, 2023 03:17 PM Reporting Lab: [place] [address] [address] Performing Lab: [address] [address] ALBUMIN 3.6 g/dL 3.5-5.0 Jan 08, 2024 07:40 AM [facility] ALKALINE PHOSPHATASE Specimen Type: SERUM No comment entered. Ordering Provider: LUIS ORTIZ Report Released Date/Time: Oct 30, 2023 03:17 PM Reporting Lab: [facility] [address] [address] Performing Lab: [address] [address] ALKALINE PHOSPHATASE 89 U/L 40-150 Jan 08, 2024 07:40 AM [facility] CBC Specimen Type: BLOOD No comment entered. Ordering Provider: LUIS ORTIZ Report Released Date/Time: Oct 30, 2023 03:17 PM Reporting Lab: [address] [address] Performing Lab: [address] [address] WBC 5.57 10*3/uL 4.50-11.00 RBC 5.11 10*6/uL [...] AM [place]-TOBACCO QUIT 15 YRS OR MORE [facility] [...] Oct 03, 2016 ADVANCE DIRECTIVE ELIZABETH SOSA [facility] Encounter Notes: All associated encounter notes This section contains the clinical notes associated to the Encounter. Date/Time Encounter Note(s) Provider Source Dec 11, 2023 12:00 PM NONVA CONSULT: LOCAL TITLE: COMMUNITY CARE-CONSULT RESULT NOTE STANDARD TITLE: NONVA CONSULT DATE OF NOTE: DEC 11, 2023@12:00 ENTRY DATE: JAN 28, 2024@14:09:21 AUTHOR: JENNY ELLIOTT EXP COSIGNER: URGENCY: STATUS: COMPLETED VistA Imaging - Scanned Document SCANNED DOCUMENT SIGNATURE NOT REQUIRED Electronically Filed: 01/28/2024 by: JENNY ELLIOTT SEMICONDUCTOR LAB TECHNICIAN JENNY ELLIOTT [facility]
--- OUTSIDE RECORDS SUMMARY | 2024-03-09 09:12 | XMS_ITS | Encounter Summary ---
Author Name [facility] [place] Address [address] [place] [address] Care Team Providers Care Prover Name Role Phone MAXI FULLER Primary Care [...] Awan's Name Patient's Relationship to Policy Awan [facility] June 17, 2013 [id number] MARYIdania CHRISTINE PATIENT MEDICARE (WNR) MEDICARE () PART B June 17, 2013 PART B [id number] Idania BENITEZ PATIENT MEDICARE (WNR) MEDICARE () PART A June 17, 2013 PART A [id number] Idania BENITEZ PATIENT MEDICARE (WN) MEDICARE () PART A June 17, 2013 PART A [id number] Idania BENITEZ PATIENT MEDICARE (WNR) MEDICARE () PART B June 17, 2013 PART B [id number] ELLENМАРИЯIdania SALOMON PATIENT Selected Encounter This section includes the information on record at [place] for the Encounter. Date/Time Encounter Type Encounter Description Reason Provider Source Feb 25, 2024 09:00 AM OFFICE O/P EST LOW 20 MIN PODIATRY ICD-10-CM L60.3 Nail dystrophy TOMASA GANDHI Manjinder Encounter Template Text not used by [place] Assessments - Encounter Diagnoses This section includes the primary and secondary diagnoses documented for the Encounter. 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 This section includes future appointments and future orders which are active, pending or scheduled. Future Appointments This section includes appointments that were scheduled to occur 6 months from the date of the Encounter, up to a maximum of 20 appointments. The data comes from all [place] treatment facilities. Appointment Date/Time Appointment Type Appointme nt Facility Name Mar 22, 2024 08:00 AM AMBULATORY [facility] Mar 24, 2024 11:00 AM [facility] Apr 27, 2024 10:30 AM AMBULATORY - MEDICINE [facility] Jun 16, 2024 09:00 AM AMBULATORY - MEDICINE [facility] Active, Pending, and Scheduled Orders This section includes a listing of several types of active, pending, and scheduled orders, including clinic medications orders, diagnostic test orders, procedure orders and consult orders; where the start date of the order is 45 days before the date of the Encounter or 45 days after the date of theEncounter. The data comes from all [place] treatment facilities. Test Date/Time Test Type Test Details Facility Name Feb 13, 2024 02:59 PM Consult Order [facility] NON-SKILLED HOME HEALTH AIDE Cons Hydraulic Technician's Choice [place] [facility] Mar 14, 2024 12:00 AM Laboratory - Chemistry Order MICROALBUMIN CREATININE RATIO PANEL URINE (RANDOM) [facility] Mar 14, 2024 12:00 AM Laboratory - Chemistry Order BASIC METABOLIC PANEL (non-fasting) BLOOD (SST-SERUM) [facility] Mar 14, 2024 12:00 AM Laboratory - Chemistry Order FERRITIN BLOOD (SST-SERUM) [facility] Mar 14, 2024 12:00 AM Laboratory - Chemistry Order CBC BLOOD (LAV-BLOOD) [facility] Mar 14, 2024 12:00 AM Laboratory - Chemistry Order IRON & TIBC PANEL BLOOD (SST-SERUM) [facility] Social History: Smoking Status (Most current) and Tobacco Use (All prior to encounter date) This section includes the most current, and the historical, smoking and tobacco- related health factors from the [place] facility where the Encounter took place. Current Smoking Status This section includes the most current smoking, or tobacco-related health factor, from the [place] facility where the Encounter took place. Date/Time Current Smoking Status Comment Rich lea Oct 29, 2023 11:30 AM VA-TOBACCO FORMER USER [facility] Tobacco Use History This section includes a history of the smoking, or tobacco-related health factors, that were collected on or before the date of the Encounter. The data comes from the [place] facility where the Encounter took place. Date/Time Smoking Status/Tobacco Use Comment F carlos Oct 29, 2023 11:30 AM VA-TOBACCO QUIT 15 YRS OR MORE [facility] Sep 30, 2022 10:30 AM VA-TOBACCO FORMER USER [facility] Sep 30, 2022 10:30 AM VA-TOBACCO QUIT 15 YRS OR MORE [facility] Sep 18, 2021 09:30 AM VA-TOBACCO FORMER USER [facility] Sep 18, 2021 09:30 AM VA-TOBACCO QUIT 15 YRS OR MORE [facility] Sep 28, 2020 09:00 AM VA-TOBACCO FORMER USER [facility] Sep 28, 2020 09:00 AM VA-TOBACCO QUIT 15 YRS OR MORE [facility] Apr 16, 2018 10:29 AM VA-TOBACCO FORMER USER [facility] Apr 16, 2018 10:29 AM VA-TOBACCO QUIT 15 YRS OR MORE [facility] Jul 18, 2017 12:44 PM QUIT TOBACCO USE > 7 YEARS AGO [facility] Sep 02, 2016 08:40 AM QUIT TOBACCO USE > 7 YEARS AGO quit smoking cigarettes in 1994 [facility] Advance Directives: All historical and current Section Date Range: From patient's date of to the date document was created. This section includes ALL of a patient's completed or amended [place] Advance and Rescinded Directives. The entries below indicate that a directive exists for the patient, but an actual copy is not included with this document. The data comes from all [place] facilities. Date Advance Directives Provider Source Oct 03, 2016 ADVANCE DIRECTIVE ELIZABETH SOS[facility] Encounter Notes: All associated encounter notes This section contains the clinical notes associated to the Encounter. Date/Time Encounter Note(s) Provider Source Feb 25, 2024 07:43 AM PODIATRY NOTE: LOCAL TITLE: PODIATRY NOTE STANDARD TITLE: PODIATRY NOTE DATE OF NOTE: FEB 25, 2024@07:43 ENTRY DATE: FEB 25, 2024@07:43:05 AUTHOR: TOMASA GANDHI COSIGNER: URGENCY: STATUS: COMPLETED NOTE: HAS RECEIVED BOTH COVID VACCINE DOSES + BOOSTER AT [facility] LAST SEEN FOR TREATMENT: 10/01/2023 S: Pt. is a 73 yo alert WDWN CAUC MALE who presents for continued evaluation & podiatric care for treatment of a presenting complaint of a painful THICK ingrown toenail (4th RT). Patient has TYPE II DM & is at risk of injury with self or other nonprofessional care. 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 Duration of symptoms is daily with periods of exacerbation and remission. Description of symptoms is of an aching nature with pain level 2-3/10 prior to treatment & 0/10 after. Contributing factors are: shoes and increased activity *DENIES ANY RECENT CHANGES IN MEDS OR MEDICAL STATUS UPON QUESTIONING TODAY-SEE RECONCILIATION PERFORMED THIS DATE -BELOW DENIES TOBACCO PMH: Active problems - Computerized Problem List is the source for the following: *NOTE: REVIEWED ABOVE NOTING RECENT CHANGE SINCE PREVIOUS VISIT(TYPE II DM)-NO LONGER HAS HYPERTENSION & NO CHANGES SINCE PREVIOUS VISIT *NOTE: PLEASE SEE PROBLEM LIST TEMPLATE FOR COMPLETE LIST NEEDED. *NOTE: A1c=5.9 (LAST TAKEN: 10/2023) FBS= DNP RISK =2 HEIGHT:187.3 lb [85.1 kg] (04/16/2018 10:06) WEIGHT:67 in [170.2 cm] (04/16/2018 10:06) O: DERMATOLOGICAL: Exam reveals skin color & text to be WNL. Temp is diminished warm to cool proximal to distal. There is absence of hair noted. Nails are thickened yellow-brown discolored and displaying flakiness, crumbling, sub- ungual debris and rubor in the affected nail grooves. The affected nails are 4 RT. There are no superficial painful hyperkeratotic lesions noted at this time. There are no rashes, ulcers, indurations or nodules noted. VASCULAR: Exam reveals DP & PT pulses to be absent non-palpable bilateral. CFT is <3 sec x 10. There are no superficial varices noted and there is no edema noted. MUSCULOSKELETAL: Exam reveals muscle strength and tone to be equal & symmetrical bilaterally & WNL for an individual of this age and present physical-medical condition. There is pain free ROM at all joints distal to and including the ankle. NEUROLOGICAL: Exam reveals S/D, vibratory, light touch & proprioception sensations to be equal & symmetrical bilaterally & diminished for an individual of this age and present physical-medical status. Protective sensation utilizing a Antler-Britton lOg monofilament is 10/10 bilateral. ABOVE exams are reviewed and notd to be unchanged since last visit and determined to be non-contributory to the CC . 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 P: Treatment consists of trimming & reduction of all nails via manual & electric means with excision of the offending nail borders and thinning of the 4th RT digit nail plates to the point of imminent bleeding. Applied ammonium lactate 12% lotion to dry skin. All care rendered without complications & the patient is progressing well after podiatric care this date and will be scheduled for periodic podiatric care in an attempt to prevent future complications due to the underlying medical conditions. Treatment by a non-professional could be extremely hazardous to the patient's wellbeing due to the underlying medical conditions. RTC 24 WEEKS(06/16 @ 9AM) DISCUSSED HAVING A QUIET HOLIDAYS LIKE MANY OTHER OF MY PATIENTS *DISCUSSED HOME FOOT CARE FEET ARE IN EXCELLENT CONDITION AND RECOMMENDED GOLD [place] FOOT CARE DAILY AND I PROVIDED HIM WITH WRITTEN RECOMMENDATION FOR FOOT CARE TO REVIEW AT HOME (FOOR CARE TIPS) *DISCUSSED NEW PROTOCOLS AND CALLED [facility] TODAY FOR RESCHEDULING I DISCUSSED THE FINDINGS & PLAN WITH PATIENT (UNCHANGED SINCE PREVIOUS VISIT) & PATIENT AGREES AND UNDERSTANDS PLAN & RECEIVED MIRROR Medication Reconciliation: PERFORMED TODAY - SEE BELOW. Outpatient: Has the patient been taking medications [...] Remote Allergy/ADR Data available for this patient [place] [facility] No Known Allergies Med Recon NoGlossary (Tool [...] display of VA prescriptions dispensed from another [place] or [facility] facility (remote) is limited to active outpatient prescription entries matched to National Drug File at the originating site and may not include some items such as investigational drugs, compounds, etc. NOT INCLUDED IN THIS LIST: Medications self-entered by the patient into personal health records (i.e. [facility]) are NOT included in this list. Non-VA medications documented outside this [place], remote inpatient orders (regardless of status) and remote clinic medications are NOT included in this list. The patient and provider must always discuss medications the patient is taking, regardless of where the medication was dispensed or obtained. OUTPT ATORVASTATIN CALCIUM 40MG TAB (Status = Active) TAKE ONE-HALF TABLET BY MOUTH DAILY FOR CHOLESTEROL Rx# [id number] Last Released: 12/05/23 Qty/Days Supply: 45 Rx Expiration Date: 06/26/24 Refills Remainin OUTPT CARBIDOPA 25/LEVODOPA 100MG TAB (Status = Active) TAKE 2 TABLETS BY MOUTH EVERY MORNING AND TAKE 1 TABLET TWICE DAILY FOR PARKINSON'S DISEASE Rx# [id number] Last Released: 12/04/23 Qty/Days Supply: 360/90 Rx Expiration Date: 05/15/24 Refills Remainin Indication: FOR PARKINSON'S DISEASE Non-VA CHOLECALCIF 50MCG (D3-2,000UNIT) TAB TAKE ONE TABLET BY MOUTH DAILY Medication prescribed by Non-VA provider. OUTPT MELATONIN 5MG CAP/TAB (Status = Active) TAKE TWO CAPSULE/TABLET BY MOUTH AT BEDTIME FOR SLEEP DISORDER Rx# [id number] Last Released: 05/19/23 Qty/Days Supply: 180/ Rx Expiration Date: 05/15/24 Refills Remainin Indication: FOR SLEEP DISORDER OUTPT POLYETHYLENE GLYCOL 3350 ORAL PWDR (Status = Active) TAKE 17 GRAMS (1 CAPFUL) BY MOUTH TWICE DAILY NEEDED FOR CONSTIPATION [MIX WITH 4 TO 8OZ. OF BEVERAGE] Rx# [id number] Last Released: 12/04/23 Qty/Days Supply: 510/90 Rx Expiration Date: 05/15/24 Refills Remainin OUTPT RASAGILINE MESYLATE 1MG TAB (Status = Active) TAKE ONE TABLET BY MOUTH ONCE DAILY Rx# [id number] Last Released: 12/04/23 Qty/Days Supply: 9090 Rx Expiration Date: 05/15/24 Refills Remainin Non-VA VITAMIN B COMPLEX CAP TAKE 1 CAPSULE BY MOUTH DAILY Medication prescribed by Non-VA provider. SUPPLIES /israel/ TOMASA GANDHI DPM TUBE BENDING MACHINE OPERATOR Signed: 02/25/2024 09:15 TOMASA GANDHI [facility]
--- OUTSIDE RECORDS SUMMARY | 2024-03-09 09:13 | XMS_ITS ---
Author Name [facility] [place] Address [address] [place] [id number] Care Team Providers Care Helicopter Officer Name Role Phone MAXI FULLER Primary Care [...] Name Patient's Relationship to Policy Awan [facility] June 17, 2013 [id number] Idania BENITEZ PATIENT MEDICARE (WNR) MEDICARE () PART A June 17, 2013 PART A [id number] Idania BENITEZ PATIENT MEDICARE (WNR) MEDICARE () PART B June 17, 2013 PART B [id number] Idania BENITEZ PATIENT MEDICARE (WNR) MEDICARE () PART A June 17, 2013 PART A [id number] Idania BENITEZ PATIENT MEDICARE (WNR) MEDICARE () PART B June 17, 2013 PART B [id number] Idania BENITEZ PATIENT Selected Encounter This section includes the information on record at [place] for the Encounter. Date/Time Encounter Type Encounter Description Reason Pro vider Source Jul 29, 2023 12:00 AM Outpatient Encounter EVENT (HISTORICAL) IHE Encounter Template Text not used by [place] Plan of Treatment: Future Appointments (+ 6 months) and Future Tests (+/- 45 days) The Plan of Treatment section includes future care activities for the patient from all [place] treatmentfacilities. This section includes future appointments and future orders which are active, pending or scheduled. Future Appointments This section includes appointments that were scheduled to occur 6 months from the date of the Encounter, up to a maximum of 20 appointments. The data comes from all [place] treatment facilities. Appointment Date/Time Appointment Type Appointme nt Facility Name Oct 01, 2023 09:00 AM [facility] Oct 29, 2023 11:30 AM AMBULATORY - MEDICINE [facility] Jan 13, 2024 10:30 AM AMBULATORY MEDICINE [facility] Social History: Smoking Status (Most current) and Tobacco Use (All prior to encounter date) This section includes the most current, and the historical, smoking and tobacco- related health factors from the [place] facility where the Encounter took place. Current Smoking Status This section includes the most current smoking, or tobacco-related health factor, from the [place] facility where the Encounter took place. Date/Time Current Smoking Status Comment Facil ity Oct 21, 2019 10:30 AM [place]-TOBACCO FORMER USER [facility] Tobacco Use History This section includes a history of the smoking, or tobacco-related health factors, that were collected on or before the date of the Encounter. The data comes from the [place] facility where the Encounter took place. Date/Time Smoking Status/Tobacco Use Comment F acility Oct 21, 2019 10:30 AM [place]-TOBACCO QUIT 15 YRS OR MORE [facility] Advance Directives: All historical and current Section Date Range: From patient's date of to the date document was created. This section includes ALL of a patient's completed or amended [place] Advance and Rescinded Directives. The entries below indicate that a directive exists for the patient, but an actual copy is not included with this document. The data comes from all [place] facilities. Date Advance Directives Provider Source Oct 03, 2016 ADVANCE DIRECTIVE ELIZABETH SOSA [facility] Encounter Notes: All associated encounter notes This section contains the clinical notes associated to the Encounter. Date/Time Encounter Note(s) Provider Source Jul 29, 2023 12:00 AM NONVA CONSULT: LOCAL TITLE: COMMUNITY CARE-CONSULT RESULT NOTE STANDARD TITLE: NONVA CONSULT DATE OF NOTE: JUL 29, 2023 ENTRY DATE: OCT 17, 2023@11:01:34 AUTHOR: JOHN LONDON EXP COSIGNER: URGENCY: STATUS: COMPLETED VistA Imaging - Scanned Document SCANNED DOCUMENT SIGNATURE NOT REQUIRED Electronically Filed: 10/17/2023 by: JOHN FLEMING [facility]
--- OUTSIDE RECORDS SUMMARY | 2024-03-09 09:13 | XMS_ITS | Encounter Summary ---
Author Name [place] Address [address] [place] [address] Care Team Providers Care Marine Animal Trainer Name Role Phone MAXI FULLER Primary Care [...] Name Patient's Relationship to Policy Awan [facility] June 17, 2013 [id number] Idania BENITEZ PATIENT MEDICARE (WNR) MEDICARE () PART A June 17, 2013 PART A [id number] Idania BENITEZ PATIENT MEDICARE (WNR) MEDICARE () PART B June 17, 2013 PART B [id number] Idania BENITEZ PATIENT MEDICARE (WNR) MEDICARE () PART A June 17, 2013 PART A [id number] Idania BENITEZ PATIENT MEDICARE (WNR) MEDICARE () PART B June 17, 2013 PART B [id number] ELLENIdania HSIEH AYNE PATIENT Selected Encounter This section includes the information on record at [place] for the Encounter. Date/Time Encounter Type Encounter Description Reason Pro vider Source June 19, 2023 12:00 PM Outpatient Encounter COMMUNITY CARE CONSULT IHE Encounter Template Text not used by [place] Plan of Treatment: Future Appointments (+ 6 [...] Date/Time Appointment Type Appointme nt Facility Name Jul 29, 2023 03:15 PM [facility] Oct 01, 2023 09:00 [facility] Oct 29, 2023 11:30 AM AMBULATORY - MEDICINE [facility] Social History: Smoking Status (Most [...] Facil ity Oct 21, 2019 10:30 AM [place]-TOBACCO FORMER USER [facility] Tobacco Use History This section includes a history of the smoking, or tobacco-related health factors, that were collected on or before the date of the Encounter. The data comes from the [place] facility where the Encounter took place. Date/Time Smoking Status/Tobacco Use Comment F acility Oct 21, 2019 10:30 AM [place]-TOBACCO QUIT 15 YRS OR MORE [facility] Advance Directives: All historical and current [...] the Encounter. Date/Time Encounter Note(s) Provider Source June 19, 2023 12:00 PM NONVA CONSULT: LOCAL TITLE: COMMUNITY CARE-CONSULT RESULT NOTE STANDARD TITLE: NONVA CONSULT DATE OF NOTE: JUNE 19, 2023@12:00 ENTRY DATE: JULY 15, 2023@10:32:42 AUTHOR: CHRIS SOTELO EXP COSIGNER: URGENCY: STATUS: COMPLETED VistA Imaging - Scanned Document SCANNED DOCUMENT SIGNATURE NOT REQUIRED Electronically Filed: 07/15/2023 by: CHRIS ESCALONA CN[facility]
--- OUTSIDE RECORDS SUMMARY | 2024-03-09 09:13 | XMS_ITS | Encounter Summary ---
Author Name [facility] [place] Address [address] [place] [id number] Care Team Providers Care Body Worker Name Role Phone MAXI FULLER Primary Care [...] Name Patient's Relationship to Policy Awan [facility] June 17, 2013 [id number] Idania BENITEZ PATIENT MEDICARE (WNR) MEDICARE () PART B June 17, 2013 PART B [id number] Idania BENITEZ PATIENT MEDICARE (WNR) MEDICARE () PART A June 17, 2013 PART A [id number] Idania BENITEZ PATIENT MEDICARE (WNR) MEDICARE () PART B June 17, 2013 PART B [id number] Idania BENITEZ PATIENT MEDICARE (WNR) MEDICARE () PART A June 17, 2013 PART A [id number] Idania BENITEZ PATIENT Selected Encounter This section includes the information on record at [place] for the Encounter. Date/Time Encounter Type Encounter Description Reason Pro vider Source Oct 09, 2023 03:46 PM Outpatient Encounter PRIMARY CARE/MEDICINE IHE Encounter Template Text not used by [place] Plan of Treatment: Future Appointments (+ 6 months) and Future Tests (+/- 45 days) The Plan of Treatment section includes future care activities for the patient from all [place] treatmentfacilities. This section includes future appointments and future orders which are active, pending or scheduled. Future Appointments This section includes appointments that were scheduled to occur 6 months from the date of the Encounter, up to a maximum of 20 appointments. The data comes from all [place] treatment facilities. Appointment Date/Time Appointment Type Appointme nt Facility Name Oct 29, 2023 11:30 AM AMBULATORY - MEDICINE [facility] Jan 13, 2024 10:30 AM [facility] Feb 25, 2024 09:00 AM AM[facility]ULATORY - MEDICINE [facility] Mar 22, 2024 08:00 AM AMBULATORY MEDICINE [facility] Mar 24, 2024 11:00 AM AMBULATORY MEDICINE [facility] Lab Results: +/- 30 days of the encounter This section includes the Chemistry and Hematology Lab Results on record with [place] for the patient. Radiology Reports and Pathology Reports are provided separately, in subsequent sections. Lab Results This section contains the Chemistry/Hematology Results that were resulted 30 days before or 30 daysafter the date of the Encounter. Date/Time Source Result Type Result - Unit Interpretation Reference Range Comment Oct 29, 2023 12:33 PM [facility] MICROSCOPIC AUTOMATED, URINE Specimen Type: URINE Comment: If Glucose = >500 and Ketones are positive, please alert the Physician. Ordering Provider: MAXI FULLER Report Released Date/Time: Oct 29, 2023 12:03 PM Reporting Lab: [facility] [address] [facility] [address] Performing Lab: [facility] [address] [facility] [address] UA WBC 11-20 /[HPF] H 0-5 UA BACTERIA 1+ /[HPF] NoneObs UA MUCUS FEW /[LPF] Trace UA CALCIUM OXALATE CRYSTALS MODERATE /[HPF] Not Established UA RBC TNTC /[HPF] 0-3 Oct 29, 2023 12:33 PM [facility] URINALYSIS Specimen Type: URINE Comment: If Glucose = >500 and Ketones are positive, please alert the Physician. Ordering Provider: MAXI FULLER Report Released Date/Time: Oct 29, 2023 12:03 PM Reporting Lab: [address] [address] Performing Lab: [address] [address] UA COLOR Yellow Yellow UA APPEARANCE Turbid Clear UA GLUCOSE Normal mg/dL Negative UA KETONES NEGATIVE mg/dL Negative UA BLOOD LARGE mg/dL Negative UA PROTEIN 70 mg/dL Negative UA NITRITE NEGATIVE mg/dL Negative UA BILIRUBIN NEGATIVE mg/dL Negative UA SPECIFIC GRAVITY 1.021 1.016-1.022 UA pH 6.5 5.0-9.0 UA UROBILINOGEN 2 mg/dL <2.0 UA LEUKOCYTE TRACE Negative Oct 27, 2023 07:40 AM [facility] LIVER FUNCTION Specimen Type: SERUM No comment entered. Ordering Provider: MAXI FULLER Report Released Date/Time: Apr 21, 2023 05:32 AM Reporting Lab: [facility] [address] [facility] [address] Performing Lab: [address] [address] PROTEIN,TOTAL 7.1 g/dL 6.0-8.3 ALBUMIN 3.8 g/dL 3.5-5.0 ALKALINE PHOSPHATASE 79 U/L 40-150 AST 21 U/L 5-34 ALT 23 U/L BILIRUBIN, TOTAL 1.1 mg/dL 0.2-1.2 Oct 27, 2023 07:40 AM [facility] HEMOGLOBIN A1C PANEL Specimen Type: BLOOD Comment: Values obtained from A1C measurements can vary. For atypical A1C assays, a reported value of 7.0 could actually be between 6.72 and 7.28 if measured by a reference method. A reported value of 9.0 could actually be between 8.73 and 9.27. Ref: http://www.ng sp.org/CAPdat a.asp Ordering Provider: MAXI FULLER Report Released Date/Time: Apr 21, 2023 05:32 AM Reporting Lab: [facility] [address] [facility] [address] Performing Lab: [address] [address] HEMOGLOBIN A1C 5.9 H 4.0-5.6 Oct 27, 2023 07:40 AM [facility] LIPID PANEL FASTING Specimen Type: SERUM No comment entered. Ordering Provider: MAXI FULLER Report Released Date/Time: Apr 21, 2023 05:32 AM Reporting Lab: [address] [address] Performing Lab: [address] [address] CHOLESTEROL 148 mg/dL TRIGLYCERIDE 108 mg/dL 0-150 LDL calculated 79 mg/dL 0-129 CHOL/HDL 3.1 HDL CHOLESTEROL 47 mg/dL 40-60 Oct 27, 2023 07:40 AM [facility] BASIC METABOLIC PANEL (fasting) Specimen Type: SERUM No comment entered. Ordering Provider: MAXI FULLER Report Released Date/Time: Apr 21, 2023 05:32 AM Reporting Lab: [address] [address] Performing Lab: [address] [address] UREA NITROGEN 12 mg/dL 7-25 GLUCOSE 111 mg/dL H 65-100 SODIUM 140 mmol/L 135-145 POTASSIUM 4.1 mmol/L 3.5-5.0 CHLORIDE 105 mmol/L 100-110 CO2 25 meq/L 20-30 CREATININE, Serum 1.18 mg/dL 0.50-1.40 eGFR(CKD-EPI 2020) 64 mL/min >60 Oct 27, 2023 07:40 AM [facility] MICROALBUMIN CREATININE RATIO PANEL Specimen Type: URINE No comment entered. Ordering Provider: MAXI FULLER Report Released Date/Time: Apr 21, 2023 05:32 AM Reporting Lab: [facility] [address] [facility] [address] Performing Lab: [facility] [address] [facility] [address] MICROALBUMIN/ CREATININE RATIO 586.6 mg/g H 0-29.9 MICROALBUMIN, QUANTITATIVE 113.4 mg/dL RR UNAVAIL CREATININE URINE 193.32 mg/dL Social History: Smoking Status (Most current) and Tobacco Use (All prior to encounter date) This section includes the most current, and the historical, smoking and tobacco- related health factors from the [place] facility where the Encounter took place. Current Smoking Status This section includes the most current smoking, or tobacco-related health factor, from the [place] facility where the Encounter took place. Date/Time Current Smoking Status Comment Facil ity Oct 21, 2019 10:30 AM [place]-TOBACCO FORMER USER [facility] Tobacco Use History This section includes a history of the smoking, or tobacco-related health factors, that were collected on or before the date of the Encounter. The data comes from the [place] facility where the Encounter took place. Date/Time Smoking Status/Tobacco Use Comment F acility Oct 21, 2019 10:30 AM [place]-TOBACCO QUIT 15 YRS OR MORE [facility] Advance Directives: All historical and current Section Date Range: From patient's date of to the date document was created. This section includes ALL of a patient's completed or amended [place] Advance and Rescinded Directives. The entries below indicate that a directive exists for the patient, but an actual copy is not included with this document. The data comes from all [place] facilities. Date Advance Directives Provider Source Oct 03, 2016 ADVANCE DIRECTIVE ELIZABETH SOSA Pathology Reports: +/- 30 days of the [...] the Encounter. The data comes from all [place] treatment facilities. Date/Time Pathology Report Provider Source Oct 29, 2023 12:33 PM LR MICROBIOLOGY RE PORT: Reporting Lab: [facility] [CLIA# [id number]] [address] [place] [address] Accession [UID]: [id number] [[id number]] Received: Oct 30, 2023@09:53 Collection sample: URINE CLEAN CATCH Collection date: Oct 29, 2023 12:33 Site/Specimen: URINE Provider: MAXI FULLER Test(s) ordered: URINE CULTURE(MWROX).......... completed: Nov 03, 2023 09:58 * BACTERIOLOGY FINAL REPORT => Nov 03, 2023 09:58 TECH CODE: [id number] Bacteriology Remark(s): NO GROWTH IN 24 HOURS, FINAL REPORT TO FOLLOW. FINAL AEROBIC REPORT: NO GROWTH =--=--=--=--=--=--=--=-- =--=--=--=--=--=--=--=-- =--=--=--=--=--=--=--=-- =--=-- Performing Laboratory: Bacteriology Report Performed By: [facility] [CLIA# [id number]] [address] [place] [address] [place] [facility] Encounter Notes: All associated encounter notes This section contains the clinical notes associated to the Encounter. Date/Time Encounter Note(s) Provider Source Oct 09, 2023 03:46 PM PRIMARY CARE TELEP IVETTE ENCOUNTER NOTE: LOCAL TITLE: TELEPHONE NOTE/PRIMARY CARE STANDARD TITLE: PRIMARY CARE TELEPHONE ENCOUNTER NOTE DATE OF NOTE: OCT 09, 2023@15:46 ENTRY DATE: OCT 09, 2023@15:46:23 AUTHOR: POOJA RUBIO EXP COSIGNER: URGENCY: STATUS: COMPLETED LM ON VM RE FBW PRIOR TO APPT ON 10/21 /israel/ POOJA RUBIO ADVANCED KEY ACCOUNT COORDINATOR Signed: 10/09/2023 15:46 POOJA RUBIO ANOKA
--- OUTSIDE RECORDS SUMMARY | 2024-03-09 09:13 | XMS_ITS ---
Author Name [facility] [place] [place] Organization [facility] [place] Address [address] [place] [address] Care Team Providers Care Wood Carver Name Role Phone MAXI FULLER Primary Care [...] Name Patient's Relationship to Policy Awan [facility] June 17, 2013 [id number] Idania BENITEZ PATIENT MEDICARE (WNR) MEDICARE () PART A June 17, 2013 PART A [id number] Idania BENITEZ PATIENT MEDICARE (WNR) MEDICARE () PART B June 17, 2013 PART B [id number] Idania BENITEZ PATIENT MEDICARE (WNR) MEDICARE () PART A June 17, 2013 PART A [id number] Idania BENITEZ PATIENT MEDICARE (WNR) MEDICARE () PART B June 17, 2013 PART B [id number] ELLENZZELL,W AYNE PATIENT Selected Encounter This section includes the information on record at [place] for the Encounter. Date/Time Encounter Type Encounter Description Reason Pro vider Source Aug 19, 2023 12:00 AM Outpatient Encounter COMMUNITY CARE [...] 01, 2023 09:00 AM [facility] Oct 29, 2023 11:30 AM [facility]AT[facility] Jan 13, 2024 10:30 AM AMBULATORY MEDICINE [facility] Social History: Smoking Status (Most current) and [...] 21, 2019 10:30 AM [place]-TOBACCO FORMER USER [facility] Tobacco Use History This section includes a history of the smoking, or tobacco-related health factors, that were collected on or before the date of the Encounter. The data comes from the [place] facility where the Encounter took place. Date/Time Smoking Status/Tobacco Use Comment F acility Oct 21, 2019 10:30 AM [place]-TOBACCO QUIT 15 YRS [facility] MORE [facility] [...] Oct 03, 2016 ADVANCE DIRECTIVE ELIZABETH SOSA [facility] Encounter Notes: All associated encounter notes This section contains the clinical notes associated to the Encounter. Date/Time Encounter Note(s) Provider Source Aug 19, 2023 12:00 AM NONVA CONSULT: LOCAL TITLE: COMMUNITY CARE-CONSULT RESULT NOTE STANDARD TITLE: NONVA CONSULT DATE OF NOTE: AUG 19, 2023 ENTRY DATE: SEP 29, 2023@07:26:54 AUTHOR: JOHN LONDON EXP COSIGNER: URGENCY: STATUS: COMPLETED VistA Imaging - Scanned Document SCANNED DOCUMENT SIGNATURE NOT REQUIRED Electronically Filed: 09/29/2023 by: JOHN FLEMING CNTRL [facility]N [facility]
--- OUTSIDE RECORDS SUMMARY | 2024-03-09 09:13 | XMS_ITS | Encounter Summary ---
Author Name [facility] [place] Organization [place] Address [address] [place] [address] Care Team Providers Care Authorization Manager Name Role Phone MAXI FULLER Primary [...] Name Patient's Relationship to Policy Awan [facility] June 17, 2013 [id number] Idania BENITEZ PATIENT MEDICARE (WNR) MEDICARE () PART A June 17, 2013 PART A [id number] Idania BENITEZ PATIENT MEDICARE (WNR) MEDICARE () PART B June 17, 2013 PART B [id number] Idania BENITEZ PATIENT MEDICARE (WNR) MEDICARE () PART A June 17, 2013 PART A [id number] Idania BENITEZ PATIENT MEDICARE (WNR) MEDICARE () PART B June 17, 2013 PART B [id number] ELLENZZELL,W AYNE PATIENT Selected Encounter This section includes the information on record at [place] for the Encounter. Date/Time Encounter Type Encounter Description Reason Pro vider Source Aug 05, 2023 12:00 PM Outpatient Encounter COMMUNITY CARE CONSULT IHE Encounter Template Text not used by [place] Plan of Treatment: Future Appointments (+ 6 months) and Future Tests (+/- 45 days) The Plan of Treatment section includes future care activities for the patient from all [place] treatmentfacilities. This section includes future appointments and future orders which are active, pending or scheduled. Future Appointments This section includes appointments that were scheduled to occur 6 months from the date of the Encounter, up to a maximum of 20 appointments. The data comes from all [place] treatment facilities. Appointment Date/Time Appointment Type Appointme nt Facility Name Oct 01, 2023 09:00 AM [facility] Oct 29, 2023 11:30 AM AMBULATORY - MEDICINE [facility] Jan 13, 2024 10:30 AM AMBULATORY MEDICINE [facility] Social History: Smoking Status (Most current) and Tobacco Use (All prior to encounter date) This section includes the most current, and the historical, smoking and tobacco- related health factors from the [place] facility where the Encounter took place. Current Smoking Status This section includes the most current smoking, or tobacco-related health factor, from the [place] facility where the Encounter took place. Date/Time Current Smoking Status Comment Facil ity Oct 21, 2019 10:30 AM [place]-TOBACCO FORMER USER [facility] Tobacco Use History This section includes a history of the smoking, or tobacco-related health factors, that were collected on or before the date of the Encounter. The data comes from the [place] facility where the Encounter took place. Date/Time Smoking Status/Tobacco Use Comment F acility Oct 21, 2019 10:30 AM [place]-TOBACCO QUIT 15 YRS OR MORE [facility] Advance Directives: All historical and current Section Date Range: From patient's date of to the date document was created. This section includes ALL of a patient's completed or amended [place] Advance and Rescinded Directives. The entries below indicate that a directive exists for the patient, but an actual copy is not included with this document. The data comes from all [place] facilities. Date Advance Directives Provider Source Oct 03, 2016 ADVANCE DIRECTIVE ELIZABETH SOSA Encounter Notes: All associated encounter notes This section contains the clinical notes associated to the Encounter. Date/Time Encounter Note(s) Provider Source Aug 05, 2023 12:00 PM NONVA CONSULT: LOCAL TITLE: COMMUNITY CARE-CONSULT RESULT NOTE STANDARD TITLE: NONVA CONSULT DATE OF NOTE: AUG 05, 2023@12:00 ENTRY DATE: SEP 22, 2023@09:58:07 AUTHOR: CHRIS SOTELO EXP COSIGNER: URGENCY: STATUS: COMPLETED VistA Imaging - Scanned Document SCANNED DOCUMENT SIGNATURE NOT REQUIRED Electronically Filed: 09/22/2023 by: CHRIS ESCALONA CNTRL [facility]
--- OUTSIDE RECORDS SUMMARY | 2024-03-09 09:13 | XMS_ITS | Encounter Summary ---
Author Name [facility] [place] Address [address] [place] [address] Care Team Providers Care Silk Screen Operator Name Role Phone MAXI FULLER Primary Care [...] Name Patient's Relationship to Policy [facility]wan [facility] June 17, 2013 [id number] Idania BENITEZ PATIENT MEDICARE (WNR) MEDICARE () PART A June 17, 2013 PART A [id number] Idania BENITEZ PATIENT MEDICARE (WNR) MEDICARE () PART B June 17, 2013 PART B [id number] Idania BENITEZ PATIENT MEDICARE (WNR) MEDICARE () PART B June 17, 2013 PART B [id number] Idania BENITEZ PATIENT MEDICARE (WNR) MEDICARE () PART A June 17, 2013 PART A [id number] ELLENZZELL,W AYNE PATIENT Selected Encounter This section includes the information on record at [place] for the Encounter. Date/Time Encounter Type Encounter Description Reason Pro vider Source July 08, 2023 12:00 PM Outpatient Encounter COMMUNITY CARE [...] 20 appointments. The data comes from all [place] treatment facilities. Appointment Date/Time Appointment Type Appointme nt Facility Name Jul 29, 2023 03:15 PM [facility]ORY [facility] Oct 01, 2023 09:00 AM [facility] Oct 29, 2023 11:30 AM AMBULATORY - MEDICINE [facility] Social History: Smoking Status (Most current) [...] Facil ity Oct 21, 2019 10:30 AM [place]-TOBACCO FORMER USER [facility] Tobacco Use History This section includes a history of the smoking, or tobacco-related health factors, that were collected on or before the date of the Encounter. The data comes from the [place] facility where the Encounter took place. Date/Time Smoking Status/Tobacco Use Comment F acility Oct 21, 2019 10:30 AM [place]-TOBACCO QUIT 15 YRS OR MORE [facility] Advance Directives: All historical and current Section Date Range: From patient's date of to the date document was created. This section includes ALL of a patient's completed or amended [place] Advance and Rescinded Directives. The entries below indicate that a directive exists for the patient, but an actual copy is not included with this document. The data comes from all [place] facilities. Date Advance Directives Provider Source Oct 03, 2016 ADVANCE DIRECTIVE ELIZABETH SOSA [facility] Encounter Notes: All associated encounter notes This section contains the clinical notes associated to the Encounter. Date/Time Encounter Note(s) Provider Source July 08, 2023 12:00 PM NONVA CONSULT: LOCAL TITLE: COMMUNITY CARE-CONSULT RESULT NOTE STANDARD TITLE: NONVA CONSULT DATE OF NOTE: JULY 08, 2023@12:00 ENTRY DATE: AUG 01, 2023@13:33:12 AUTHOR: CHRIS SOTELO EXP COSIGNER: URGENCY: STATUS: COMPLETED VistA Imaging - Scanned Document SCANNED DOCUMENT SIGNATURE NOT REQUIRED Electronically Filed: 08/01/2023 by: CHRIS [facility] July 08, 2023 12:00 PM NONVA CONSULT: LOCAL TITLE: COMMUNITY CARE-CONSULT RESULT NOTE STANDARD TITLE: NONVA CONSULT DATE OF NOTE: JULY 08, 2023@12:00 ENTRY DATE: AUG 01, 2023@13:58:11 AUTHOR: CHRIS SOTELO COSIGNER: URGENCY: STATUS: COMPLETED VistA Imaging - Scanned Document SCANNED DOCUMENT SIGNATURE NOT REQUIRED Electronically Filed: 08/01/2023 by: CHRIS ESCALONA [facility]
--- OUTSIDE RECORDS SUMMARY | 2024-03-09 09:13 | XMS_ITS | Encounter Summary ---
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 Name Role Phone MAXI FULLER Primary Care [...] Name Patient's Relationship to Policy [facility] June 17, 2013 [id number] Idania BENITEZ PATIENT MEDICARE (WNR) MEDICARE () PART A June 17, 2013 PART A [id number] [phone] Idania BENITEZ PATIENT MEDICARE (WNR) MEDICARE () PART B June 17, 2013 PART B [id number] Idania BEINTEZ PATIENT MEDICARE (WNR) MEDICARE () PART B June 17, 2013 PART B [id number] [phone] Idania BENITEZ PATIENT MEDICARE (WNR) MEDICARE () PART A June 17, 2013 PART A [id number] ELLENZZELLIdania PATIENT Selected Encounter This section includes the information on record at [place] for the Encounter. Date/Time Encounter Type Encounter Description Reason Pro vider Source Oct 14, 2023 12:00 PM Outpatient Encounter COMMUNITY CARE CONSULT I[facility] Encounter Template Text not used by [place] Plan of Treatment: Future Appointments (+ 6 months) and Future Tests (+/- 45 days) The Plan of Treatment section includes future care activities for the patient from all [place] treatmentfacilities. This section includes future appointments and future orders which are active, pending or scheduled. Future Appointments This section includes appointments that were scheduled to occur 6 months from the date of the Encounter, up to a maximum of 20 appointments. The data comes from all [place] treatment facilities. Appointment Date/Time Appointment Type Appointme nt Facility Name Oct 29, 2023 11:30 AM [facility] Jan 13, 2024 10:30 AM [facility] Feb 25, 2024 09:00 AM AM[facility] Mar 22, 2024 08:00 AM [facility] Mar 24, 2024 11:00 AM AMBULATORY MEDICINE [facility] Lab Results: +/- 30 days of the encounter This section includes the Chemistry and Hematology Lab Results on record with [place] for the patient. Radiology Reports and Pathology Reports are provided separately, in subsequent sections. Lab Results This section contains the Chemistry/Hematology Results that were resulted 30 days before or 30 daysafter the date of the Encounter. Date/Time Source Result Type Result - Unit Interpretation Reference Range Comment Oct 29, 2023 12:33 PM [facility] MICROSCOPIC AUTOMATED, URINE Specimen Type: URINE Comment: If Glucose = >500 and Ketones are positive, please alert the Physician. Ordering Provider: MAXI FULLER Report Released Date/Time: Oct 29, 2023 12:03 PM Reporting Lab: [facility] [address] [facility] [address] Performing Lab: [facility] [address] [facility] [address] UA WBC 11-20 /[HPF] H 0-5 UA BACTERIA 1+ /[HPF] NoneObs UA MUCUS FEW /[LPF] Trace UA CALCIUM OXALATE CRYSTALS MODERATE /[HPF] Not Established UA RBC TNTC /[HPF] 0-3 Oct 29, 2023 12:33 PM [facility] URINALYSIS Specimen Type: URINE Comment: If Glucose = >500 and Ketones are positive, please alert the Physician. Ordering Provider: MAXI FULLER Report Released Date/Time: Oct 29, 2023 12:03 PM Reporting Lab: [facility] [address] [facility] [address] Performing Lab: [facility] [address] [facility] [address] UA COLOR Yellow Yellow UA APPEARANCE Turbid Clear UA GLUCOSE Normal mg/dL Negative UA KETONES NEGATIVE mg/dL Negative UA BLOOD LARGE mg/dL Negative UA PROTEIN 70 mg/dL Negative UA NITRITE NEGATIVE mg/dL Negative UA BILIRUBIN NEGATIVE mg/dL Negative UA SPECIFIC GRAVITY 1.021 1.016-1.022 UA pH 6.5 5.0-9.0 UA UROBILINOGEN 2 mg/dL <2.0 UA LEUKOCYTE TRACE Negative Oct 27, 2023 07:40 AM [facility] LIPID PANEL FASTING Specimen Type: SERUM No comment entered. Ordering Provider: MAXI FULLER Report Released Date/Time: Apr 21, 2023 05:32 AM Reporting Lab: [facility] [address] [facility] [address] Performing Lab: [address] [address] CHOLESTEROL 148 mg/dL TRIGLYCERIDE 108 mg/dL 0-150 LDL calculated 79 mg/dL 0-129 CHOL/HDL 3.1 HDL CHOLESTEROL 47 mg/dL 40-60 Oct 27, 2023 07:40 AM [facility] LIVER FUNCTION Specimen Type: SERUM No comment entered. Ordering Provider: MAXI FULLER Report Released Date/Time: Apr 21, 2023 05:32 AM Reporting Lab: [facility] [address] [facility] [address] Performing Lab: [address] [address] PROTEIN,TOTAL 7.1 g/dL 6.0-8.3 ALBUMIN 3.8 g/dL 3.5-5.0 ALKALINE PHOSPHATASE 79 U/L 40-150 AST 21 U/L 5-34 ALT 23 U/L BILIRUBIN, TOTAL 1.1 mg/dL 0.2-1.2 Oct 27, 2023 07:40 AM [facility] HEMOGLOBIN A1C PANEL Specimen Type: BLOOD [...] Apr 21, 2023 05:32 AM Reporting Lab: [address] [address] Performing Lab: [address] [address] HEMOGLOBIN A1C 5.9 H 4.0-5.6 Oct 27, 2023 07:40 AM [facility] MICROALBUMIN CREATININE RATIO PANEL Specimen Type: URINE No comment entered. Ordering Provider: MAXI FULLER Report Released Date/Time: Apr 21, 2023 05:32 AM Reporting Lab: [address] [address] Performing Lab: [address] [address] MICROALBUMIN/ CREATININE RATIO 586.6 mg/g H 0-29.9 MICROALBUMIN, QUANTITATIVE 113.4 mg/dL RR UNAVAIL CREATININE URINE 193.32 mg/dL Oct 27, 2023 07:40 AM [facility] BASIC METABOLIC PANEL (fasting) Specimen Type: SERUM No comment entered. Ordering Provider: MAXI FULLER Report Released Date/Time: Apr 21, 2023 05:32 AM Reporting Lab: [address] [address] Performing Lab: [facility] [address] [facility] [address] UREA NITROGEN 12 mg/dL 7-25 GLUCOSE 111 mg/dL H 65-100 SODIUM 140 mmol/L 135-145 POTASSIUM 4.1 mmol/L 3.5-5.0 CHLORIDE 105 mmol/L 100-110 CO2 25 meq/L 20-30 CREATININE, Serum 1.18 mg/dL 0.50-1.40 eGFR(CKD-EPI 2020) 64 mL/min >60 Social History: Smoking Status (Most current) and Tobacco Use (All prior to encounter date) This section includes the most current, and the historical, smoking and tobacco- related health factors from the [place] facility where the Encounter took place. Current Smoking Status This section includes the most current smoking, or tobacco-related health factor, from the [place] facility where the Encounter took place. Date/Time Current Smoking Status Comment Facil ity Oct 21, 2019 10:30 AM [place]-TOBACCO FORMER USER [facility] Tobacco Use History This section includes a history of the smoking, or tobacco-related health factors, that were collected on or before the date of the Encounter. The data comes from the [place] facility where the Encounter took place. Date/Time Smoking Status/Tobacco Use Comment F acility Oct 21, 2019 10:30 AM [place]-TOBAC[place] QUIT 15 YRS OR MORE [facility] Advance Directives: All historical and current Section Date Range: From patient's date of to the date document was created. This section includes ALL of a patient's completed or amended [place] Advance and Rescinded Directives. The entries below indicate that a directive exists for the patient, but an actual copy is not included with this document. The data comes from all [place] facilities. Date Advance Directives Provider Source Oct [...] the Encounter. The data comes from all [place] treatment facilities. Date/Time Pathology Report Provider Source Oct 29, 2023 12:33 PM LR MICROBIOLOGY RE PORT: Reporting Lab: [facility] [CLIA# [id number]] [address] [place] [address] Accession [UID]: [id number] [[id number]] Received: Oct 30, 2023@09:53 Collection sample: URINE CLEAN CATCH Collection date: Oct 29, 2023 12:33 Site/Specimen: URINE Provider: MAXI FULLER Test(s) ordered: URINE CULTURE(MWROX).......... completed: Nov 03, 2023 09:58 * BACTERIOLOGY FINAL REPORT => Nov 03, 2023 09:58 TECH CODE: [id number] Bacteriology Remark(s): NO GROWTH IN 24 HOURS, FINAL REPORT TO FOLLOW. FINAL AEROBIC REPORT: NO GROWTH =--=--=--=--=--=--=--=-- =--=--=--=--=--=--=--=-- =--=--=--=--=--=--=--=-- =--=-- Performing Laboratory: Bacteriology Report Performed By: [facility] [CLIA# [id number]] [address] [place] [address] [place] [facility] Encounter Notes: All associated encounter notes This section contains the clinical notes associated to the Encounter. Date/Time Encounter Note(s) Provider Source Oct 14, 2023 12:00 PM NONVA CONSULT: LOCAL TITLE: COMMUNITY CARE-CONSULT RESULT NOTE STANDARD TITLE: NONVA CONSULT DATE OF NOTE: OCT 14, 2023@12:00 ENTRY DATE: NOV 19, 2023@12:41:32 AUTHOR: CHRIS SOTELO EXP COSIGNER: URGENCY: STATUS: COMPLETED VistA Imaging - Scanned Document SCANNED DOCUMENT SIGNATURE NOT REQUIRED Electronically Filed: 11/19/2023 by: CHRIS ESCALONA [facility]
--- OUTSIDE RECORDS SUMMARY | 2024-03-09 09:13 | XMS_ITS | Encounter Summary ---
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 Role Phone MAXI FULLER Primary [...] Awan's Name Patient's Relationship to Policy Awan [facility] June 17, 2013 [id number] ELLENIdania HSIEH PATIENT MEDICARE (WNR) MEDICARE () PART A June 17, 2013 PART A [id number] Idania BENITEZ PATIENT MEDICARE (WNR) MEDICARE () PART B June 17, 2013 PART B [id number] Idania BENITEZ PATIENT MEDICARE (WN) MEDICARE () PART A June 17, 2013 PART A [id number] Idania BENITEZ PATIENT MEDICARE (WNR) MEDICARE () PART B June 17, 2013 PART B [id number] ELLENМАРИЯIdania SALOMON PATIENT Selected Encounter This section includes the information on record at CT for the Encounter. Date/Time Encounter Type Encounter Description Reason Provider Source Oct 01, 2023 09:00 AM OFFICE O/P EST LOW 20 MIN PODIATRY ICD-10-CM L60.0 Ingrowing nail TOMASA GANDHI Manjinder Encounter Template Text not used by CT Assessments - Encounter Diagnoses This section includes the primary and secondary diagnoses documented for the Encounter. Date/Time Primary/Secondary Diagnosis Diagnosis Name Provider Source Oct 25, 2023 09:07 AM PRIMARY Ingrowing TOMASA Sánchez SANG Oct 25, 2023 09:07 AM SECONDARY Type 2 diabetes w diabetic peripheral angiopath w/o gangrene TOMASA GANDHI SANG Plan of Treatment: Future Appointments (+ 6 months) and Future Tests (+/- 45 days) The Plan of Treatment section includes future care activities for the patient from all CT treatmentfacilities. This section includes future appointments and future orders which are active, pending or scheduled. Future Appointments This section includes appointments that were scheduled to occur 6 months from the date of the Encounter, up to a maximum of 20 appointments. The data comes from all CT treatment facilities. Appointment Date/Time Appointment Type Appointme nt Facility Name Oct 29, 2023 11:30 AM AMBULATORY - MEDICINE [facility] [place] [facility] Jan 13, 2024 10:[address] [facility] [place] [facility] Feb 25, 2024 09:00 AM AMBULATORY - MEDICINE [facility] Mar 22, 2024 08:00 AM AMBULATORY - MEDICINE [facility] [place] [facility] Mar 24, 2024 11:00 AM AMBULATORY - MEDICINE [facility] Lab Results: +/- 30 days of the encounter This section includes the Chemistry and Hematology Lab Results on record with CT for the patient. Radiology Reports and Pathology Reports are provided separately, in subsequent sections. Lab Results This section contains the Chemistry/Hematology Results that were resulted 30 days before or 30 daysafter the date of the Encounter. Date/Time Source Result Type Result - Unit Interpretation Reference Range Comment Oct 29, 2023 12:33 PM [facility] [place] [facility] MICROSCOPIC AUTOMATED, URINE Specimen Type: URINE Comment: If Glucose = >500 and Ketones are positive, please alert the Physician. Ordering Provider: MAXI FULLER Report Released Date/Time: Oct 29, 2023 12:03 PM Reporting Lab: [facility] [address] [address] Performing Lab: [facility] [address] [address] UA WBC 11-20 /[HPF] H 0-5 UA BACTERIA 1+ /[HPF] NoneObs UA MUCUS FEW /[LPF] Trace UA CALCIUM OXALATE CRYSTALS MODERATE /[HPF] Not Established UA RBC TNTC /[HPF] 0-3 Oct 29, 2023 12:33 PM [facility] URINALYSIS Specimen Type: URINE Comment: If Glucose = >500 and Ketones are positive, please alert the Physician. Ordering Provider: MAXI FULLER Report Released Date/Time: Oct 29, 2023 12:03 PM Reporting Lab: [address] [address] Performing Lab: [address] [address] UA COLOR Yellow Yellow UA APPEARANCE Turbid Clear UA GLUCOSE Normal mg/dL Negative UA KETONES NEGATIVE mg/dL Negative UA BLOOD LARGE mg/dL Negative UA PROTEIN 70 mg/dL Negative UA NITRITE NEGATIVE mg/dL Negative UA BILIRUBIN NEGATIVE mg/dL Negative UA SPECIFIC GRAVITY 1.021 1.016-1.022 UA pH 6.5 5.0-9.0 UA UROBILINOGEN 2 mg/dL <2.0 UA LEUKOCYTE TRACE Negative Oct 27, 2023 07:40 AM [facility] LIPID PANEL FASTING Specimen Type: SERUM No comment entered. Ordering Provider: MAXI FULLER Report Released Date/Time: Apr 21, 2023 05:32 AM Reporting Lab: [address] [address] Performing Lab: [address] [address] CHOLESTEROL 148 mg/dL TRIGLYCERIDE 108 mg/dL 0-150 LDL calculated 79 mg/dL 0-129 CHOL/HDL 3.1 HDL CHOLESTEROL 47 mg/dL 40-60 Oct 27, 2023 07:40 AM [facility] LIVER FUNCTION Specimen Type: SERUM No comment entered. Ordering Provider: MAXI FULLER Report Released Date/Time: Apr 21, 2023 05:32 AM Reporting Lab: [facility] [address] [address] Performing Lab: [address] [address] PROTEIN,TOTAL 7.1 g/dL 6.0-8.3 ALBUMIN 3.8 g/dL 3.5-5.0 ALKALINE PHOSPHATASE 79 U/L 40-150 AST 21 U/L 5-34 ALT 23 U/L BILIRUBIN, TOTAL 1.1 mg/dL 0.2-1.2 Oct 27, 2023 07:40 AM [facility] HEMOGLOBIN A1C PANEL Specimen Type: BLOOD [...] Apr 21, 2023 05:32 AM Reporting Lab: [address] [address] Performing Lab: [address] [address] HEMOGLOBIN A1C 5.9 H 4.0-5.6 Oct 27, 2023 07:40 AM [facility] BASIC METABOLIC PANEL (fasting) Specimen Type: SERUM No comment entered. Ordering Provider: MAXI FULLER Report Released Date/Time: Apr 21, 2023 05:32 AM Reporting Lab: [address] [address] Performing Lab: [address] [address] UREA NITROGEN 12 mg/dL 7-25 GLUCOSE 111 mg/dL H 65-100 SODIUM 140 mmol/L 135-145 POTASSIUM 4.1 mmol/L 3.5-5.0 CHLORIDE 105 mmol/L 100-110 CO2 25 meq/L 20-30 CREATININE, Serum 1.18 mg/dL 0.50-1.40 eGFR(CKD-EPI 2020) 64 mL/min >60 Oct 27, 2023 07:40 AM [facility] MICROALBUMIN CREATININE RATIO PANEL Specimen Type: URINE No comment entered. Ordering Provider: MAXI FULLER Report Released Date/Time: Apr 21, 2023 05:32 AM Reporting Lab: [facility] [address] [address] Performing Lab: [facility] [address] [address] MICROALBUMIN/ CREATININE RATIO 586.6 mg/g H 0-29.9 MICROALBUMIN, QUANTITATIVE 113.4 mg/dL RR UNAVAIL CREATININE URINE 193.32 mg/dL Social History: Smoking Status (Most current) and Tobacco Use (All prior to encounter date) This section includes the most current, and the historical, smoking and tobacco- related health factors from the CT facility where the Encounter took place. Current Smoking Status This section includes the most current smoking, or tobacco-related health factor, from the CT facility where the Encounter took place. Date/Time Current Smoking Status Comment Rich lea Sep 30, 2022 10:30 AM VA-TOBACCO FORMER USER [facility] Tobacco Use History This section includes a history of the smoking, or tobacco-related health factors, that were collected on or before the date of the Encounter. The data comes from the CT facility where the Encounter took place. Date/Time Smoking Status/Tobacco Use Comment Juan Pablo acandrey Sep 30, 2022 10:30 AM VA-TOBACCO QUIT 15 YRS OR MORE [facility] Sep 18, 2021 09:30 AM VA-TOBACCO FORMER USER [facility] Sep 18, 2021 09:30 AM VA-TOBACCO QUIT 15 YRS OR MORE [facility] Sep 28, 2020 09:00 AM VA-TOBACCO FORMER USER [facility] Sep 28, 2020 09:00 AM VA-TOBACCO QUIT 15 YRS OR MORE [facility] Apr 16, 2018 10:29 AM VA-TOBACCO FORMER USER [facility] Apr 16, 2018 10:29 AM VA-TOBACCO QUIT 15 YRS OR MORE [facility] Jul 18, 2017 12:44 PM QUIT TOBACCO USE > 7 YEARS AGO [facility] Sep 02, 2016 08:40 AM QUIT TOBACCO USE > 7 YEARS AGO quit smoking cigarettes in 1994 [facility] Advance Directives: All historical and current Section Date Range: From patient's date of to the date document was created. This section includes ALL of a patient's completed or amended CT Advance and Rescinded Directives. The entries below indicate that a directive exists for the patient, but an actual copy is not included with this document. The data comes from all CT facilities. Date Advance Directives Provider Source Oct 03, 2016 ADVANCE DIRECTIVE ELIZABETH SOSA [facility] Pathology Reports: +/- 30 days of the [...] the Encounter. The data comes from all CT treatment facilities. Date/Time Pathology Report Provider Source Oct 29, 2023 12:33 PM LR MICROBIOLOGY RE PORT: Reporting Lab: [facility] [CLIA# [id number]] [address] [place] [phone] Accession [UID]: [id number] [[id number]] Received: Oct 30, 2023@09:53 Collection sample: URINE CLEAN CATCH Collection date: Oct 29, 2023 12:33 Site/Specimen: URINE Provider: MAXI FULLER Test(s) ordered: URINE CULTURE(MWROX).......... completed: Nov 03, 2023 09:58 * BACTERIOLOGY FINAL REPORT => Nov 03, 2023 09:58 TECH CODE: [id number] Bacteriology Remark(s): NO GROWTH IN 24 HOURS, FINAL REPORT TO FOLLOW. FINAL AEROBIC REPORT: NO GROWTH =--=--=--=--=--=--=--=-- =--=--=--=--=--=--=--=-- =--=--=--=--=--=--=--=-- =--=-- Performing Laboratory: Bacteriology Report Performed By: [facility] [CLIA# [id number]] [address] [place] [address] [facility] [facility] Encounter Notes: All associated encounter notes This section contains the clinical notes associated to the Encounter. Date/Time Encounter Note(s) Provider Source Oct 01, 2023 09:23 AM PODIATRY NOTE: LOCAL TITLE: PODIATRY PAVE FOOT EXAM STANDARD TITLE: PODIATRY NOTE DATE OF NOTE: OCT 01, 2023@09:23 ENTRY DATE: OCT 01, 2023@:23:22 AUTHOR: TOMASA GANDHI COSIGNER: URGENCY: STATUS: COMPLETED PAVE FOOT EXAM A foot risk level was completed. The following risk level was identified for this patient: +POD RISK SCORE+ *--LEVEL 2 - (MODERATE RISK)* DECREASED sensation No severe obstructive peripheral arterial disease (Foot deformity and/or minor foot infection may be present or absent) No ulceration, nor history of ulceration, osteomyelitis, or amputation No Charcot joint disease with foot deformity No chronic kidney disease, or less than CKD 4 LEVEL 2 FOOT EDUCATION: 1. Advised patient that therapeutic footwear and orthosis are required to accommodate foot deformities, to compensate for soft tissue atrophy, and to evenly distribute plantar foot pressures. 2. Advised patient not to walk barefoot. Instructed the patient to pay close attention to the style and fit of shoes. 3. Explained the importance of daily foot checks. Explained that loss of sensation leads to callouses. Callouses break down, which result in ulcers that may lead to gangrene and amputation. 4. Stressed the importance of daily foot hygiene. Warm (not hot) bathing of the feet, complete drying and thorough inspection for changes in the condition of the skin constitute daily foot care. Demonstrated how to do a thorough foot check. 5. Emphasized the use of clean, non-restrictive socks/stockings and well fitting shoes. 6. Stressed the importance of immediate follow-up of any foot injuries or ulcers. Explained that he/she should be non-weight bearing whenever there are lesions on the foot, to prevent cellular damage. Level of Understanding: Good Patient/Family Response to Foot Care Teaching Patient walks barefoot: A few times per month Patient/caregiver able to clean feet at least once daily: Yes Patient/caregiver has difficulty examining feet: No /israle/ TOMASA GANDHI DPM HALL DIRECTOR Signed: 10/01/2023 09:23 TOMASA GANDHI [facility] Oct 01, 2023 07:33 AM PODIATRY NOTE: LOCAL TITLE: PODIATRY NOTE STANDARD TITLE: PODIATRY NOTE DATE OF NOTE: OCT 01, 2023@07:33 ENTRY DATE: OCT 01, 2023@07:33:42 AUTHOR: TOMASA GANDHI EXP COSIGNER: URGENCY: STATUS: COMPLETED NOTE: HAS RECEIVED BOTH COVID VACCINE DOSES + BOOSTER AT [facility] LAST SEEN FOR TREATMENT: 04/16/2023 S: Pt. is a 73 yo alert [...] COMPLETE LIST NEEDED. *NOTE: A1c=5.9 (LAST TAKEN: 03/2023) FBS= DNP RISK =2 HEIGHT:187.3 lb [85.1 [...] present physical-medical status. Protective sensation utilizing a Harlingen-Britton lOg monofilament is 10/10 bilateral. ABOVE exams are reviewed and notd to be unchanged since last visit and determined to be non-contributory to the CC . *NOTE: .*YEARLY COMPLETE PAVE EXAM PERFORMED TODAY - SEE BELOW. A: Clinical Impression is a painful onychocryptic [...] to the underlying medical conditions. RTC 24 WEEKS *DISCUSSED HOME FOOT CARE FEET ARE IN [...] AGREES AND UNDERSTANDS PLAN & RECEIVED MIRROR DISCUSSED NO PLANS FOR THE SUMMER Medication Reconciliation: PERFORMED TODAY - SEE BELOW. Outpatient: Has the patient been taking medications as documented in the EMLR? YES: The patient has been taking medications as documented in the EMLR. Essential Medication List for Review used to complete this medication reconciliation. INCLUDED IN THIS LIST: Alphabetical list of active outpatient prescriptions dispensed from this [facility] (local) and dispensed from another CT or [facility] facility (remote) as well as [...] Remote Allergy/ADR Data available for this patient [facility] [place] [facility] No Known Allergies Med Recon NoGlossary (Tool [...] display of VA prescriptions dispensed from another CT or [facility] facility (remote) is limited to active outpatient prescription entries matched to National Drug File at the originating site and may not include some items such as investigational drugs, compounds, etc. NOT INCLUDED IN THIS LIST: Medications self-entered by the patient into personal health records (i.e. [facility]) are NOT included in this list. Non-VA medications documented outside this CT, remote inpatient orders (regardless of status) and remote clinic medications are NOT included in this list. The patient and provider must always discuss medications the patient is taking, regardless of where the medication was dispensed or obtained. OUTPT ATORVASTATIN CALCIUM 40MG TAB (Status = Active) TAKE ONE-HALF TABLET BY MOUTH DAILY FOR CHOLESTEROL Rx# [id number] Last Released: 09/11/23 Qty/Days Supply: 45 Rx Expiration Date: 06/26/24 Refills Remainin OUTPT CARBIDOPA 25/LEVODOPA 100MG TAB (Status = Active) TAKE 2 TABLETS BY MOUTH EVERY MORNING AND TAKE 1 TABLET TWICE DAILY FOR PARKINSON'S DISEASE Rx# [id number] Last Released: 09/11/23 Qty/Days Supply: 360/ Rx Expiration Date: 05/15/24 Refills Remainin Indication: FOR PARKINSON'S DISEASE Non-VA CHOLECALCIF 50MCG (D3-2,000UNIT) TAB TAKE ONE TABLET BY MOUTH DAILY Medication prescribed by Non-VA provider. OUTPT MELATONIN 5MG CAP/TAB (Status = Active) TAKE TWO CAPSULE/TABLET BY MOUTH AT BEDTIME FOR SLEEP DISORDER Rx# [id number] Last Released: 05/19/23 Qty/Days Supply: 180/90 Rx Expiration Date: 05/15/24 Refills Remainin Indication: FOR SLEEP DISORDER OUTPT POLYETHYLENE GLYCOL 3350 ORAL PWDR (Status = Active) TAKE 17 GRAMS (1 CAPFUL) BY MOUTH TWICE DAILY NEEDED FOR CONSTIPATION [MIX WITH 4 TO 8OZ. OF BEVERAGE] Rx# [id number] Last Released: 05/19/23 Qty/Days Supply: 510/90 Rx Expiration Date: 05/15/24 Refills Remainin OUTPT RASAGILINE MESYLATE 1MG TAB (Status = Active) TAKE ONE TABLET BY MOUTH ONCE DAILY Rx# [id number] Last Released: 09/11/23 Qty/Days Supply: 90 Rx Expiration Date: 05/15/24 Refills Remainin Non-VA VITAMIN B COMPLEX CAP TAKE 1 CAPSULE BY MOUTH DAILY Medication prescribed by Non-VA provider. SUPPLIES Suicide Screen: C-SSRS Screening Baker-Suicide Severity Rating Scale (C-SSRS Screener) 1. Over the past month, have you wished you were or wished you could go to sleep and not wake up? No 2. Over the past month, have you had any actual thoughts of killing yourself? No 3. Over the past month, have you been thinking about how you might do this? Response not required due to responses to other questions. 4. Over the past month, have you had these thoughts and had some intention of acting on them? Response not required due to responses to other questions. 5. Over the past month, have you started to work out or worked out the details of how to kill yourself? Response not required due to responses to other questions. 6. If yes, at any time in the past month did you intend to carry out this plan? Response not required due to responses to other questions. 7. In your lifetime, have you ever done anything, started to do anything, or prepared to do anything to end your life (for example, collected pills, obtained a gun, gave away valuables, went to the roof but didn't jump)? No 8. If YES, was this within the past 3 months? Response not required due to responses to other questions. PAVE Foot Check: A complete foot check was completed at this encounter. VISUAL INSPECTION: Includes inspection for skin breaks, deformity, erythema, trauma, pallor on elevation, dependent rubor, nail deformities, extensive callus and pitting edema. Visual exam results: Abnormal Observations: Thickened toenails PEDAL PULSES: Includes palpation of dorsalis and posterior tibial pulses and signs/symptoms of vascular compromise like pain, pallor, parasthesia or paralysis. Absent: Comment: PT PULSES ARE ABSENT BILAT SENSORY CHECK: Includes 10 gram Monofilament (Harlingen-Britton) test of sensation. Intact (Greater than or equal to 80% of sites checked) Abnormal (Less than 80% of sites checked): Intact Comment: VIBRATORY & MONOFILAMENT ARE WNL BILAT HIGH-RISK: HIGH RISK INFORMATION PROVIDED: 1. Advised patient that extra depth footwear with soft molded inserts and braces may be required. 2. Advised patient not to walk barefoot. 3. Explained the importance of daily foot checks. 4. Stressed the importance of daily foot hygiene, including bathing, complete drying and thorough inspection for changes. The patient verbalized understanding and was offered a detailed handout on diabetic foot care. Patient is established patient of Podiatry and/or Vascular: Last scheduled appointment: APR 16, 2023@09:00:00 NATALI/DALE/PODIATRY/HIRAM Comment: 04/16/2023 /israel/ TOMASA GANDHI DPM HALL DIRECTOR Signed: 10/01/2023 09:23 TOMASA GANDHI
--- OUTSIDE RECORDS SUMMARY | 2024-03-09 09:13 | XMS_ITS | Encounter Summary ---
Author Name [facility] [place] Address [address] [place] [address] Care Team Providers Care Physician'S Aide Name Role Phone MAXI FULLER Primary Care [...] Name Patient's Relationship to Policy Awan [facility] June 17, 2013 [id number] Idania BENITEZ PATIENT MEDICARE (WNR) MEDICARE () PART B June 17, 2013 PART B [id number] Idania BENITEZ PATIENT MEDICARE (WNR) MEDICARE () PART A June 17, 2013 PART A [id number] Idania BENITEZ PATIENT MEDICARE (WNR) MEDICARE () PART B June 17, 2013 PART B [id number] Idania BENITEZ PATIENT MEDICARE (WNR) MEDICARE () PART A June 17, 2013 PART A [id number] ELLENIdania HSIEH [facility] PATIENT Selected Encounter This section includes the information on record at [place] for the Encounter. Date/Time Encounter Type Encounter Description Reason Pro vider Source Jul 22, 2023 12:00 PM Outpatient Encounter COMMUNITY CARE CONSULT IHE Encounter Template Text not used by [place] Plan of Treatment: Future Appointments (+ 6 months) and Future Tests (+/- 45 days) The Plan of Treatment section includes future care activities for the patient from all [place] treatmentfacilities. This section includes future appointments and future orders which are active, pending or scheduled. Future Appointments This section includes appointments that were scheduled to occur 6 months from the date of the Encounter, up to a maximum of 20 appointments. The data comes from all [place] treatment facilities. Appointment Date/Time Appointment Type Appointme nt Facility Name Jul 29, 2023 03:15 PM [facility] Oct 01, 2023 09:00 AM AM[facility]ULATORY - MEDICINE [facility] Oct 29, 2023 11:30 AM [facility] Jan 13, 2024 10:30 AM AMBULATORY - MEDICINE [facility] Social History: Smoking Status (Most current) and Tobacco Use (All prior to encounter date) This section includes the most current, and the historical, smoking and tobacco- related health factors from the [facility] facility where the Encounter took place. Current Smoking Status This section includes the most current smoking, or tobacco-related health factor, from the [place] facility where the Encounter took place. Date/Time Current Smoking Status Comment Facil ity Oct 21, 2019 10:30 AM [place]-TOBACCO FORMER USER [facility] Tobacco Use History This section includes a history of the smoking, or tobacco-related health factors, that were collected on or before the date of the Encounter. The data comes from the [place] facility where the Encounter took place. Date/Time Smoking Status/Tobacco Use Comment F acility Oct 21, 2019 10:30 AM [place]-TOBACCO QUIT 15 YRS OR MORE [facility] Advance Directives: All historical and current Section Date Range: From patient's date of to the date document was created. This section includes ALL of a patient's completed or amended [place] Advance and Rescinded Directives. The entries below indicate that a directive exists for the patient, but an actual copy is not included with this document. The data comes from all [place] facilities. Date Advance Directives Provider Source Oct 03, 2016 ADVANCE DIRECTIVE ELIZABETH SOSA Encounter Notes: All associated encounter notes This section contains the clinical notes associated to the Encounter. Date/Time Encounter Note(s) Provider Source Jul 22, 2023 12:00 PM NONVA CONSULT: LOCAL TITLE: COMMUNITY CARE-CONSULT RESULT NOTE STANDARD TITLE: NONVA CONSULT DATE OF NOTE: JUL 22, 2023@12:00 ENTRY DATE: AUG 27, 2023@17:03:52 AUTHOR: CHRIS SOTELO EXP COSIGNER: URGENCY: STATUS: COMPLETED VistA Imaging - Scanned Document SCANNED DOCUMENT SIGNATURE NOT REQUIRED Electronically Filed: 08/27/2023 by: CHRIS ESCALONA [facility] [facility]
--- OUTSIDE RECORDS SUMMARY | 2024-03-09 09:13 | XMS_ITS | Encounter Summary ---
Author Name [facility] [place] Organization [facility] [place] Address [address] [place] [address] Care Team Providers Care Mingle Operator Name Role Phone MAXI FULLER Primary [...] Name Patient's Relationship to Policy Awan [facility] June 17, 2013 [id number] Idania BENITEZ PATIENT MEDICARE (WNR) MEDICARE () PART A June 17, 2013 PART A [id number] Idania BENITEZ PATIENT MEDICARE (WNR) MEDICARE () PART B June 17, 2013 PART B [id number] Idania BENITEZ PATIENT MEDICARE (WNR) MEDICARE () PART B June 17, 2013 PART B [id number] Idania BENITEZ PATIENT MEDICARE (WNR) MEDICARE () PART A June 17, 2013 PART A [id number] ELLENZZELLIdania PATIENT Selected Encounter This section includes the information on record at [place] for the Encounter. Date/Time Encounter Type Encounter Description Reason Pro vider Source Sep 09, 2023 12:00 AM Outpatient Encounter COMMUNITY CARE CONSULT IHE Encounter Template Text not used by MS Plan of Treatment: Future Appointments (+ 6 months) and Future Tests (+/- 45 days) The Plan of Treatment section includes future care activities for the patient from all [place] treatmentfacilities. This section includes future appointments and future orders which are active, pending or scheduled. Future Appointments This section includes appointments that were scheduled to occur 6 months from the date of the Encounter, up to a maximum of 20 appointments. The data comes from all [place] treatment facilities. Appointment Date/Time Appointment Type Appointme nt Facility Name Oct 01, 2023 09:00 AM AMBULATORY - MEDICINE [facility] Oct 29, 2023 11:30 AM AMBULATORY MEDICINE [facility] Jan 13, 2024 10:30 AM AMBULATORY MEDICINE [facility] Feb 25, 2024 09:00 AM AMBULATORY - MEDICINE [facility] Social History: Smoking Status (Most current) and Tobacco Use (All prior to encounter date) This section includes the most current, and the historical, smoking and tobacco- related health factors from the [place] facility where the Encounter took place. Current Smoking Status This section includes the most current smoking, or tobacco-related health factor, from the MS facility where the Encounter took place. Date/Time Current Smoking Status Comment Facil ity Oct 21, 2019 10:30 AM MS-TOBACCO FORMER USER [facility] Tobacco Use History This section includes a history of the smoking, or tobacco-related health factors, that were collected on or before the date of the Encounter. The data comes from the MS facility where the Encounter took place. Date/Time Smoking Status/Tobacco Use Comment F acility Oct 21, 2019 10:30 AM MS-TOBACCO QUIT 15 YRS OR MORE [facility] Advance Directives: All historical and current Section Date Range: From patient's date of to the date document was created. This section includes ALL of a patient's completed or amended VA Advance and Rescinded Directives. The entries below indicate that a directive exists for the patient, but an actual copy is not included with this document. The data comes from all [place] facilities. Date Advance Directives Provider Source Oct 03, 2016 ADVANCE DIRECTIVE ELIZABETH SOSA Encounter Notes: All associated encounter notes This section contains the clinical notes associated to the Encounter. Date/Time Encounter Note(s) Provider Source Sep 09, 2023 12:00 AM NONVA CONSULT: LOCAL TITLE: COMMUNITY CARE-CONSULT RESULT NOTE STANDARD TITLE: NONVA CONSULT DATE OF NOTE: SEP 09, 2023 ENTRY DATE: NOV 13, 2023@15:35:14 AUTHOR: JOHN LONDON EXP COSIGNER: URGENCY: STATUS: COMPLETED VistA Imaging - Scanned Document SCANNED DOCUMENT SIGNATURE NOT REQUIRED Electronically Filed: 11/13/2023 by: JOHN FLEMING [facility]
--- OUTSIDE RECORDS SUMMARY | 2024-03-09 09:13 | XMS_ITS | Encounter Summary ---
Author Name [facility] [place] Organization [facility] [place] Address [address] [place] [address] Care Team Providers Care Sales And Distribution Clerk Name Role Phone MAXI FULLER Primary [...] Name Patient's Relationship to Policy Awan [facility] June 17, 2013 [id number] Idania BENITEZ PATIENT MEDICARE (WNR) MEDICARE () PART A June 17, 2013 PART A [id number] Idania BENITEZ PATIENT MEDICARE (WNR) MEDICARE () PART B June 17, 2013 PART B [id number] Idania BENITEZ PATIENT MEDICARE (WNR) MEDICARE () PART B June 17, 2013 PART B [id number] Idania BENITEZ PATIENT MEDICARE (WNR) MEDICARE () PART A June 17, 2013 PART A [id number] ELLENZZELLIdania PATIENT Selected Encounter This section includes the information on record at [place] for the Encounter. Date/Time Encounter Type Encounter Description Reason Pro vider Source Oct 21, 2023 12:00 AM Outpatient Encounter COMMUNITY CARE CONSULT IHE Encounter Template Text not used by [place] Plan of Treatment: Future Appointments (+ 6 months) and Future Tests (+/- 45 days) The Plan of Treatment section includes future care activities for the patient from all [place] treatmentfacilities. This section includes future appointments and future orders which are active, pending or scheduled. Future Appointments This section includes appointments that were scheduled to occur 6 months from the date of the Encounter, up to a maximum of 20 appointments. The data comes from all [place] treatment facilities. Appointment Date/Time Appointment Type Appointme nt Facility Name Oct 29, 2023 11:30 AM [facility] Jan 13, 2024 10[facility] [facility] [facility] Feb 25, 2024 09:00 AM AMBULATORY - MEDICINE [facility] Mar 22, 2024 08:00 AM [facility] Mar 24, 2024 11:00 AM AMBULATORY MEDICINE [facility] Lab Results: +/- 30 days of the encounter This section includes the Chemistry and Hematology Lab Results on record with [place] for the patient. Radiology Reports and Pathology Reports are provided separately, in subsequent sections. Lab Results This section contains the Chemistry/Hematology Results that were resulted 30 days before or 30 daysafter the date of the Encounter. Date/Time Source Result Type Result - Unit Interpretation Reference Range Comment Oct 29, 2023 12:33 PM [facility] MICROSCOPIC AUTOMATED, URINE Specimen Type: URINE Comment: If Glucose = >500 and Ketones are positive, please alert the Physician. Ordering Provider: MAXI FULLER Report Released Date/Time: Oct 29, 2023 12:03 PM Reporting Lab: [facility] [address] [facility] [address] Performing Lab: [facility] [address] [facility] [address] UA WBC 11-20 /[HPF] H 0-5 UA BACTERIA 1+ /[HPF] NoneObs UA MUCUS FEW /[LPF] Trace UA CALCIUM OXALATE CRYSTALS MODERATE /[HPF] Not Established UA RBC TNTC /[HPF] 0-3 Oct 29, 2023 12:33 PM [facility] URINALYSIS Specimen Type: URINE Comment: If Glucose = >500 and Ketones are positive, please alert the Physician. Ordering Provider: MAXI FULLER Report Released Date/Time: Oct 29, 2023 12:03 PM Reporting Lab: [facility] [address] [facility] [address] Performing Lab: [facility] [address] [facility] [address] UA COLOR Yellow Yellow UA APPEARANCE Turbid Clear UA GLUCOSE Normal mg/dL Negative UA KETONES NEGATIVE mg/dL Negative UA BLOOD LARGE mg/dL Negative UA PROTEIN 70 mg/dL Negative UA NITRITE NEGATIVE mg/dL Negative UA BILIRUBIN NEGATIVE mg/dL Negative UA SPECIFIC GRAVITY 1.021 1.016-1.022 UA pH 6.5 5.0-9.0 UA UROBILINOGEN 2 mg/dL <2.0 UA LEUKOCYTE TRACE Negative Oct 27, 2023 07:40 AM [facility] LIPID PANEL FASTING Specimen Type: SERUM No comment entered. Ordering Provider: MAXI FULLER Report Released Date/Time: Apr 21, 2023 05:32 AM Reporting Lab: [facility] [address] [facility] [address] Performing Lab: [address] [address] CHOLESTEROL 148 mg/dL TRIGLYCERIDE 108 mg/dL 0-150 LDL calculated 79 mg/dL 0-129 CHOL/HDL 3.1 HDL CHOLESTEROL 47 mg/dL 40-60 Oct 27, 2023 07:40 AM [facility] LIVER FUNCTION Specimen Type: SERUM No comment entered. Ordering Provider: MAXI FULLER Report Released Date/Time: Apr 21, 2023 05:32 AM Reporting Lab: [facility] [address] [facility] [address] Performing Lab: [address] [address] PROTEIN,TOTAL 7.1 g/dL 6.0-8.3 ALBUMIN 3.8 g/dL 3.5-5.0 ALKALINE PHOSPHATASE 79 U/L 40-150 AST 21 U/L 5-34 ALT 23 U/L BILIRUBIN, TOTAL 1.1 mg/dL 0.2-1.2 Oct 27, 2023 07:40 AM [facility] HEMOGLOBIN A1C PANEL Specimen Type: BLOOD [...] Apr 21, 2023 05:32 AM Reporting Lab: [address] [address] Performing Lab: [address] [address] HEMOGLOBIN A1C 5.9 H 4.0-5.6 Oct 27, 2023 07:40 AM [facility] MICROALBUMIN CREATININE RATIO PANEL Specimen Type: URINE No comment entered. Ordering Provider: MAXI FULLER Report Released Date/Time: Apr 21, 2023 05:32 AM Reporting Lab: [address] [address] Performing Lab: [address] [address] MICROALBUMIN/ CREATININE RATIO 586.6 mg/g H 0-29.9 MICROALBUMIN, QUANTITATIVE 113.4 mg/dL RR UNAVAIL CREATININE URINE 193.32 mg/dL Oct 27, 2023 07:40 AM [facility] BASIC METABOLIC PANEL (fasting) Specimen Type: SERUM No comment entered. Ordering Provider: MAXI FULLER Report Released Date/Time: Apr 21, 2023 05:32 AM Reporting Lab: [address] [address] Performing Lab: [facility] [address] [facility] [address] UREA NITROGEN 12 mg/dL 7-25 GLUCOSE 111 [...] and tobacco- related health factors from the [place] facility where the Encounter took place. Current Smoking Status This section includes the most current smoking, or tobacco-related health factor, from the [place] facility where the Encounter took place. Date/Time Current Smoking Status Comment Facil ity Oct 21, 2019 10:30 AM VA-TOBACCO FORMER USER [facility] Tobacco Use History This section includes a history of the smoking, or tobacco-related health factors, that were collected on or before the date of the Encounter. The data comes from the [place] facility where the Encounter took place. Date/Time Smoking Status/Tobacco Use Comment F acility Oct 21, 2019 10:30 AM SD-TOBACCO QUIT 15 YRS OR MORE [facility] Advance Directives: All historical and current Section Date Range: From patient's date of to the date document was created. This section includes ALL of a patient's completed or amended [place] Advance and Rescinded Directives. The entries below indicate that a directive exists for the patient, but an actual copy is not included with this document. The data comes from all [place] facilities. Date Advance Directives Provider Source Oct [...] the Encounter. The data comes from all SD treatment facilities. Date/Time Pathology Report Provider Source Oct 29, 2023 12:33 PM LR MICROBIOLOGY RE PORT: Reporting Lab: [facility] [CLIA# [id number]] [address] [place] [address] Accession [UID]: [id number] [[id number]] Received: Oct 30, 2023@09:53 Collection sample: URINE CLEAN CATCH Collection date: Oct 29, 2023 12:33 Site/Specimen: URINE Provider: MAXI FULLER Test(s) ordered: URINE CULTURE(MWROX).......... completed: Nov 03, 2023 09:58 * BACTERIOLOGY FINAL REPORT => Nov 03, 2023 09:58 TECH CODE: [id number] Bacteriology Remark(s): NO GROWTH IN 24 HOURS, FINAL REPORT TO FOLLOW. FINAL AEROBIC REPORT: NO GROWTH =--=--=--=--=--=--=--=-- =--=--=--=--=--=--=--=-- =--=--=--=--=--=--=--=-- =--=-- Performing Laboratory: Bacteriology Report Performed By: [facility] [CLIA# [id number]] [address] [place] [address] [place] [facility] Encounter Notes: All associated encounter notes This section contains the clinical notes associated to the Encounter. Date/Time Encounter Note(s) Provider Source Oct 21, 2023 12:00 AM NONVA CONSULT: LOCAL TITLE: COMMUNITY CARE-CONSULT RESULT NOTE STANDARD TITLE: NONVA CONSULT DATE OF NOTE: OCT 21, 2023 ENTRY DATE: JAN 06, 2024@12:35:45 AUTHOR: JOHN LONDON EXP COSIGNER: URGENCY: STATUS: COMPLETED VistA Imaging - Scanned Document SCANNED DOCUMENT SIGNATURE NOT REQUIRED Electronically Filed: 01/06/2024 by: JOHN FLEMING [facility]
--- OUTSIDE RECORDS SUMMARY | 2024-03-09 09:13 | XMS_ITS ---
Author Name [facility] of [place] [place] Organization [place] Address [address] [place] [address] Care Team Providers Care Endocrinologist Name Role Phone MAXI FULLER Primary Care [...] Name Patient's Relationship to Policy Awan [facility] June 17, 2013 [id number] Idania BENITEZ PATIENT MEDICARE (WNR) MEDICARE () PART B June 17, 2013 PART B [id number] Idania BENITEZ PATIENT MEDICARE (WNR) MEDICARE () PART A June 17, 2013 PART A [id number] Idania BENITEZ PATIENT MEDICARE (WNR) MEDICARE () PART B June 17, 2013 PART B [id number] Idania BENITEZ PATIENT MEDICARE (WNR) MEDICARE () PART A June 17, 2013 PART A [id number] Idania BENITEZ PATIENT Selected Encounter This section includes the information on record at [place] for the Encounter. Date/Time Encounter Type Encounter Description Reason Pro vider Source Oct 01, 2023 01:45 PM Outpatient Encounter TELEPHONE/GERIATRICS IHE Encounter Template Text not used by [...] 29, 2023 11:30 AM AMBULATORY - MEDICINE [facility] Jan 13, 2024 10:30 [facility] Feb 25, 2024 09:00 AM AMBULATORY - MEDICINE [facility] Mar 22, 2024 08:00 AM AMBULATORY MEDICINE [facility] Mar 24, 2024 11:00 AM AMBULATORY MEDICINE [facility] Lab Results: +/- 30 days of the encounter This section includes the Chemistry and Hematology Lab Results on record with [place] for the patient. Radiology Reports and Pathology Reports are provided separately, in subsequent sections. Lab Results This section contains the Chemistry/Hematology Results that were resulted 30 days before or 30 daysafter the date of the Encounter. Date/Time Source Result Type Result - Unit Interpretation Reference Range Comment Oct 29, 2023 12:33 PM [facility] MICROSCOPIC AUTOMATED, URINE Specimen Type: URINE Comment: If Glucose = >500 and Ketones are positive, please alert the Physician. Ordering Provider: MAXI FULLER Report Released Date/Time: Oct 29, 2023 12:03 PM Reporting Lab: [facility] [address] [facility] [address] Performing Lab: [facility] [address] [facility] [address] UA WBC 11-20 /[HPF] H 0-5 UA BACTERIA 1+ /[HPF] NoneObs UA MUCUS FEW /[LPF] Trace UA CALCIUM OXALATE CRYSTALS MODERATE /[HPF] Not Established UA RBC TNTC /[HPF] 0-3 Oct 29, 2023 12:33 PM [facility] URINALYSIS Specimen Type: URINE Comment: If Glucose = >500 and Ketones are positive, please alert the Physician. Ordering Provider: MAXI FULLER Report Released Date/Time: Oct 29, 2023 12:03 PM Reporting Lab: [address] [address] Performing Lab: [address] [address] UA COLOR Yellow Yellow UA APPEARANCE Turbid Clear UA GLUCOSE Normal mg/dL Negative UA KETONES NEGATIVE mg/dL Negative UA BLOOD LARGE mg/dL Negative UA PROTEIN 70 mg/dL Negative UA NITRITE NEGATIVE mg/dL Negative UA BILIRUBIN NEGATIVE mg/dL Negative UA SPECIFIC GRAVITY 1.021 1.016-1.022 UA pH 6.5 5.0-9.0 UA UROBILINOGEN 2 mg/dL <2.0 UA LEUKOCYTE TRACE Negative Oct 27, 2023 07:40 AM [facility] LIVER FUNCTION Specimen Type: SERUM No comment entered. Ordering Provider: MAXI FULLER Report Released Date/Time: Apr 21, 2023 05:32 AM Reporting Lab: [facility] [address] [facility] [address] Performing Lab: [address] [address] PROTEIN,TOTAL 7.1 g/dL 6.0-8.3 ALBUMIN 3.8 g/dL 3.5-5.0 ALKALINE PHOSPHATASE 79 U/L 40-150 AST 21 U/L 5-34 ALT 23 U/L BILIRUBIN, TOTAL 1.1 mg/dL 0.2-1.2 Oct 27, 2023 07:40 AM [facility] HEMOGLOBIN A1C PANEL Specimen Type: BLOOD Comment: [...] Apr 21, 2023 05:32 AM Reporting Lab: [facility] [address] [facility] [address] Performing Lab: [address] [address] HEMOGLOBIN A1C 5.9 H 4.0-5.6 Oct 27, 2023 07:40 AM [facility] LIPID PANEL FASTING Specimen Type: SERUM No comment entered. Ordering Provider: MAXI FULLER Report Released Date/Time: Apr 21, 2023 05:32 AM Reporting Lab: [address] [address] Performing Lab: [address] [address] CHOLESTEROL 148 mg/dL TRIGLYCERIDE 108 mg/dL 0-150 LDL calculated 79 mg/dL 0-129 CHOL/HDL 3.1 HDL CHOLESTEROL 47 mg/dL 40-60 Oct 27, 2023 07:40 AM [facility] BASIC METABOLIC PANEL (fasting) Specimen Type: SERUM No comment entered. Ordering Provider: MAXI FULLER Report Released Date/Time: Apr 21, 2023 05:32 AM Reporting Lab: [address] [address] Performing Lab: [address] [address] UREA NITROGEN 12 mg/dL 7-25 GLUCOSE 111 mg/dL H 65-100 SODIUM 140 mmol/L 135-145 POTASSIUM 4.1 mmol/L 3.5-5.0 CHLORIDE 105 mmol/L 100-110 CO2 25 meq/L 20-30 CREATININE, Serum 1.18 mg/dL 0.50-1.40 eGFR(CKD-EPI 2020) 64 mL/min >60 Oct 27, 2023 07:40 AM [facility] MICROALBUMIN CREATININE RATIO PANEL Specimen Type: URINE No comment entered. Ordering Provider: MAXI FULLER Report Released Date/Time: Apr 21, 2023 05:32 AM Reporting Lab: [facility] [address] [facility] [address] Performing Lab: [facility] [address] [facility] [address] MICROALBUMIN/ CREATININE RATIO 586.6 mg/g H 0-29.9 [...] 21, 2019 10:30 AM VA-TOBACCO FORMER USER [facility] Tobacco Use History This section includes a history of the smoking, or tobacco-related health factors, that were collected on or before the date of the Encounter. The data comes from the [place] facility where the Encounter took place. Date/Time Smoking Status/Tobacco Use Comment F acility Oct 21, 2019 10:30 AM MS-TOBACCO QUIT 15 YRS OR MORE [facility] Advance Directives: All historical and current Section Date Range: From patient's date of to the date document was created. This section includes ALL of a patient's completed or amended [place] Advance and Rescinded Directives. The entries below [...] the Encounter. The data comes from all [place] treatment facilities. Date/Time Pathology Report Provider Source Oct 29, 2023 12:33 PM LR MICROBIOLOGY RE PORT: Reporting Lab: [facility] [CLIA# [id number]] [address] [place] [address] Accession [UID]: [id number] [[id number]] Received: Oct 30, 2023@09:53 Collection sample: URINE CLEAN CATCH Collection date: Oct 29, 2023 12:33 Site/Specimen: URINE Provider: MAXI FULLER Test(s) ordered: URINE CULTURE(MWROX).......... completed: Nov 03, 2023 09:58 * BACTERIOLOGY FINAL REPORT => Nov 03, 2023 09:58 TECH CODE: [id number] Bacteriology Remark(s): NO GROWTH IN 24 HOURS, FINAL REPORT TO FOLLOW. FINAL AEROBIC REPORT: NO GROWTH =--=--=--=--=--=--=--=-- =--=--=--=--=--=--=--=-- =--=--=--=--=--=--=--=-- =--=-- Performing Laboratory: Bacteriology Report Performed By: [facility] [CLIA# [id number]] [address] [place] [address] [place] [facility] Encounter Notes: All associated encounter notes This section contains the clinical notes associated to the Encounter. Date/Time Encounter Note(s) Provider Source Oct 01, 2023 01:45 PM SOCIAL WORK NOTE: LOCAL TITLE: PERSONAL CARE SERVICES REVIEW STANDARD TITLE: SOCIAL WORK NOTE DATE OF NOTE: OCT 01, 2023@13:45 ENTRY DATE: OCT 01, 2023@13:45:20 AUTHOR: PAYAL PLATA COSIGNER: URGENCY: STATUS: COMPLETED Personal Care Services Review Type of review: 180 Day Information to complete oversight obtained from: Review of medical record Review of community vendor submitted documentation Community vendor Name: [employer] Community vendor point of contact Name: Terrell The care plan has been reviewed. Care rendered as authorized. Patient Satisfaction: How satisfied is the [place] with their community vendor? Completely How satisfied is the with their machine assembler for puller over(s)? Completely How successful is the program in meeting the 's needs/assisting them to stay at home? Completely The feels safe with personal care services provided to them. [place] meets administrative eligibility criteria. meets clinical eligibility criteria. Case Mix Tool: Date Completed: Feb Case Mix Score: L First range of hours to be used. 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
--- OUTSIDE RECORDS SUMMARY | 2024-03-09 09:13 | XMS_ITS | Encounter Summary ---
Author Name [facility] [place] Address [address] [place] [address] Care Team Providers Care Jig Bore Operator Name Role Phone MAXI FULLER Primary [...] Name Patient's Relationship to Policy Awan [facility] June 17, 2013 [id number] [phone] Idania BENITEZ PATIENT MEDICARE (WNR) MEDICARE () PART A June 17, 2013 PART A [id number] Idania BENITEZ PATIENT MEDICARE (WNR) MEDICARE () PART B June 17, 2013 PART B [id number] Idania BENITEZ PATIENT MEDICARE (WNR) MEDICARE () PART A June 17, 2013 PART A [id number] Idania BENITEZ PATIENT MEDICARE (WNR) MEDICARE (M) PART B June 17, 2013 PART B [id number] Idania BENITEZ PATIENT Selected Encounter This section includes the information on record at [place] for the Encounter. Date/Time Encounter Type Encounter Description Reason Pro vider Source June 26, 2023 08:22 AM Outpatient Encounter ADMIN PAT ACTIVTIES (MASNONCT) IHE Encounter Template Text not used by CT Plan of Treatment: Future Appointments (+ 6 [...] 29, 2023 03:15 PM AMBULATORY - MEDICINE [facility] Oct 01, 2023 09:00 AM AMBULATORY - MEDICINE [facility] Oct 29, 2023 11:30 AM AMBULATORY - MEDICINE [facility] Social History: Smoking Status (Most current) [...] 21, 2019 10:30 AM [place]-TOBACCO FORMER USER [facility] Tobacco Use History This section includes a history of the smoking, or tobacco-related health factors, that were collected on or before the date of the Encounter. The data comes from the [place] facility where the Encounter took place. Date/Time Smoking Status/Tobacco Use Comment F acility Oct 21, 2019 10:[address]-TOBACCO QUIT 15 YRS OR MORE [facility] Advance Directives: All historical and current [...] Encounter. Date/Time Encounter Note(s) Provider Source June 26, 2023 08:22 AM ADMINISTRATIVE NOT E: LOCAL TITLE: CCC: SCHEDULING ADMINISTRATION STANDARD TITLE: ADMINISTRATIVE NOTE DATE OF NOTE: JUNE 26, 2023@08:22:23 ENTRY DATE: JUNE 26, 2023@08:22:23 AUTHOR: KEESHA DUMAS EXP COSIGNER: URGENCY: STATUS: COMPLETED Patient Demographics Patient Name: LULU BENITEZ Patient Primary Phone: [phone] Patient Primary Address: [address] [place] [address] Patient : 1950 Patient Age: 73 Caller/Recipient Relation to Patient: Self Administrative Administrative Note Reason: Other CT Medications Refill/Renewal Request: Rx #[id number] - ATORVASTATIN CALCIUM 40MG TAB Administrative Note Comments: Called in today and requested a refill on his medication as he only has 4 pills left. I processed the request for the refill as there was one left on file. Prior to the next refill, the patient will need a renewal on the prescription. I informed the that the pharmacy will process and will mail the medication to him. /israel/ KEESHA DUMAS VISN [address] [facility] AMSA Signed: 06/26/2023 08:22 Receipt Acknowledged By: 06/26/2023 10:35 /es/ EDD ODONNELL RN REGISTERED NURSE 06/26/2023 10:05 /es/ MAXI FULLER MD Primary Care Physician KEESHA DUMAS [facility]
--- OUTSIDE RECORDS SUMMARY | 2024-03-09 09:14 | XMS_ITS | Encounter Summary ---
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 June 17, 2013 [id number] Idania BENITEZ PATIENT MEDICARE (WNR) MEDICARE () PART A June 17, 2013 PART A [id number] Idania BENITEZ PATIENT MEDICARE (WNR) MEDICARE () PART B June 17, 2013 PART B [id number] Idania BENITEZ PATIENT MEDICARE (WN) MEDICARE () PART A June 17, 2013 PART A [id number] Idania BENITEZ AYJESSENIA PATIENT MEDICARE (WNR) MEDICARE () PART B June 17, 2013 PART B [id number] ELLENМАРИЯW AYNE PATIENT Selected Encounter This section includes the information on [place] at [place] for the Encounter. Date/Time Encounter Type Encounter Description Reason Pro vider Source Apr 02, 2023 03:37 PM Outpatient Encounter OPTOMETRY IHE Encounter Template [...] Date/Time Appointment Type Appointme nt Facility Name Apr 16, 2023 09:00 AM AMBULATORY [facility] Apr 21, 2023 08:30 AM AMBULATORY - [place]ICINE [place] [facility] [place] [facility] May 12, 2023 11:00 AM [facility] May 15, 2023 10:30 AM AMBULATORY - NEUROLOGY [place] [facility] [place] [facility] Jul 29, 2023 03:15 PM AMBULATORY - MEDICINE [place] [facility] [place] [facility] Oct 01, 2023 09:00 AM AMBULATORY - MEDICINE [facility] Lab Results: +/- 30 days [...] Result - Unit Interpretation Reference Range Comment Apr 21, 2023 09:17 AM [facility] MICROALBUMIN CREATININE RATIO PANEL Specimen Type: URINE No comment entered. Ordering Provider: MAXI FULLER Report Released Date/Time: Sep 30, 2022 08:25 AM Reporting Lab: [facility] [address] [facility] [address] Performing Lab: [address] [address] MICROALBUMIN/C REATININE RATIO 336.4 mg/g H 0-29.9 MICROALBUMIN,Q UANTITATIVE 54.0 mg/dL RR UNAVAIL CREATININE URINE 160.54 mg/dL Mar 24, 2023 07:33 AM [facility] FOLATE Specimen Type: SERUM No comment entered. Ordering Provider: MAXI FULLER Report Released Date/Time: Sep 30, 2022 08:25 AM Reporting Lab: [facility] [place] [facility] [address] [facility] [address] Performing Lab: [facility] [place] [facility] [address] [facility] [address] FOLATE 14.25 ng/mL >5.2 Mar 24, 2023 07:33 AM [facility] HEMOGLOBIN A1C PANEL Specimen Type: BLOOD Comment: Values obtained from A1C measurements can vary. For atypical A1C assays, a reported value of 7.0 could actually be between 6.72 and 7.28 if measured by a reference method. A reported value of 9.0 could actually be between 8.73 and 9.27. Ref: http://www.ngs p.org/CAPdata. asp Ordering Provider: MAXI FULLER Report Released Date/Time: Sep 30, 2022 08:25 AM Reporting Lab: [facility] [address] [facility] [address] Performing Lab: [facility] [address] [facility] [facility] [address] HEMOGLOBIN A1C 5.9 H 4.0-5.6 Mar 24, 2023 07:33 AM [facility] TSH Specimen Type: SERUM No comment entered. Ordering Provider: MAXI FULLER Report Released Date/Time: Sep 30, 2022 08:25 AM Reporting Lab: [facility]ITALTRN [facility] [address] [facility] [address] Performing Lab: [facility] [address] [facility] [address] TSH 1.78 u[IU]/mL 0.35-5.00 Mar 24, 2023 07:33 AM [facility] VITAMIN B12 Specimen Type: SERUM No comment entered. Ordering Provider: MAXI FULLER Report Released Date/Time: Sep 30, 2022 08:25 AM Reporting Lab: [facility]ITALTR[facility] [address] [facility] [facility] [address] Performing Lab: [place] CNTRL WSTRN [facility] [address] [facility] [address] VITAMIN B12 544 pg/mL 200-900 Mar 24, 2023 07:33 AM [facility] VITAMIN D (25-OH) Specimen Type: SERUM No comment entered. Ordering Provider: MAXI FULLER Report Released Date/Time: Sep 30, 2022 08:25 AM Reporting Lab: [facility]ITALTRN [facility] [address] [address] Performing Lab: [facility] TRN [facility] [address] [address] VITAMIN D (25-OH) 36 ng/mL 20-50 Mar 24, 2023 07:33 AM [facility] LIPID PANEL FASTING Specimen Type: SERUM No comment entered. Ordering Provider: MAXI FULLER Report Released Date/Time: Sep 30, 2022 08:25 AM Reporting Lab: [facility]ITALTRN [facility] [address] [address] Performing Lab: [facility]ITAL[facility] TRN [facility] [address] [address] CHOLESTEROL 147 mg/dL TRIGLYCERIDE 102 mg/dL 0-150 LDL calculated 78 mg/dL 0-129 CHOL/HDL 3.0 HDL CHOLESTEROL 49 mg/dL 40-60 Mar 24, 2023 07:33 AM [facility] LIVER FUNCTION Specimen Type: SERUM No comment entered. Ordering Provider: MAXI FULLER Report Released Date/Time: Sep 30, 2022 08:25 AM Reporting Lab: [facility] TRN [facility] [address] [address] Performing Lab: [facility]ITALTRN [facility] [address] [address] PROTEIN,TOTAL 7.1 g/dL 6.0-8.3 ALBUMIN 3.9 g/dL 3.5-5.0 ALKALINE PHOSPHATASE 76 U/L 40-150 AST 19 U/L 5-34 ALT 18 U/L BILIRUBIN, TOTAL 1.0 mg/dL 0.2-1.2 Mar 24, 2023 07:33 AM [facility] BASIC METABOLIC PANEL (fasting) Specimen Type: SERUM No comment entered. Ordering Provider: MAXI FULLER Report Released Date/Time: Sep 30, 2022 08:25 AM Reporting Lab: [address] [address] Performing Lab: [address] [address] UREA NITROGEN 18 mg/dL 7-25 GLUCOSE 100 mg/dL 65-100 SODIUM 144 mmol/L 135-145 POTASSIUM 4.4 mmol/L 3.5-5.0 CHLORIDE 107 mmol/L 100-110 CO2 27 meq/L 20-30 CREATININE, Serum 1.32 mg/dL 0.50-1.40 eGFR(CKD-EPI 2020) 56 mL/min L >60 Mar 24, 2023 07:33 AM [facility] CBC AND DIFF (AUTO) Specimen Type: BLOOD No comment entered. Ordering Provider: MAXI FULLER Report Released Date/Time: Sep 30, 2022 08:25 AM Reporting Lab: [facility] [address] [facility] [facility] [address] Performing Lab: [address] [address] WBC 6.28 10*3/uL 4.50-11.00 RBC 5.29 10*6/uL 4.23-5.66 HGB 15.7 g/dL 12.8-17 HCT 47.8 39.2-50.4 MCV 90.4 fL 82-99 MCHC 32.8 g/dL 30.8-35.1 PLT 165 10*3/uL 140-360 RDW-CV 12.8 12.0-16.0 [place], Abs 0.49 10*3/uL 0.30-1.10 MCH 29.7 pg 26.2-32.6 Neut % 39.7 L 43.7-75.8 Lymph % 47.9 H 14.0-42.3 [place] % 7.8 5.1-13.7 Eos % 3.5 0.4-6.8 Baso % 0.5 0.1-2.0 Neut, Abs 2.49 10*3/uL 2.20-7.60 Lymph, Abs 3.01 10*3/uL 1.00-3.20 Eos, Abs 0.22 10*3/uL 0.03-0.44 Baso, Abs 0.03 10*3/uL 0.01-0.13 Immature Gran % 0.6 0.0-0.7 Immature Gran, Abs 0.04 10*3/uL 0.00-0.06 Social History: Smoking Status (Most current) and [...] 21, 2019 10:30 AM [place]-TOBACCO FORMER USER [facility] Tobacco Use History This section includes a history of the smoking, or tobacco-related health factors, that were collected on or before the date of the Encounter. The data comes from the [place] facility where the Encounter took place. Date/Time Smoking Status/Tobacco Use Comment F acility Oct 21, 2019 10:30 AM [place]-TOBACCO QUIT 15 YRS OR MORE [facility] Advance Directives: All historical and current [...] the Encounter. Date/Time Encounter Note(s) Provider Source Apr 02, 2023 03:37 PM ADMINISTRATIVE NOTE: LOCAL TITLE: ADMINISTRATIVE NOTE STANDARD TITLE: ADMINISTRATIVE NOTE DATE OF NOTE: APR 02, 2023@15:37 ENTRY DATE: APR 02, 2023@15:37:13 AUTHOR: SUMIT PIERCE SA EXP COSIGNER: URGENCY: STATUS: COMPLETED Dispositioned RTC, PID 04/02/2023, due to veterans failure to respond to all contact efforts per department standards. /israel/ SUMIT PIERCE Signed: 04/02/2023 15:38 Receipt Acknowledged By: 04/03/2023 07:42 /israel/ SUSIE LAGUNA SUPERVISORY EMERGENCY SERVICES PROFESSIONAL [place] CN[facility]
--- OUTSIDE RECORDS SUMMARY | 2024-03-09 09:14 | XMS_ITS | Encounter Summary ---
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 Name Role Phone MAXI FULLER Primary Care [...] Name Patient's Relationship to Policy [facility] June 17, 2013 [id number] Idania BENITEZ PATIENT MEDICARE (WNR) MEDICARE () PART A June 17, 2013 PART A [id number] Idania BENITEZ PATIENT MEDICARE (WNR) MEDICARE () PART B June 17, 2013 PART B [id number] Idania BENITEZ PATIENT MEDICARE (WNR) MEDICARE () PART A June 17, 2013 PART A [id number] [id number] [id number] Idania BENITEZ PATIENT MEDICARE (WNR) MEDICARE () PART B June 17, 2013 PART B [id number] ELLENIdania HSIEH AYNE PATIENT Selected Encounter This section includes the information on record at [place] for the Encounter. Date/Time Encounter Type Encounter Description Reason Pro vider Source May 27, 2023 12:00 PM Outpatient Encounter COMMUNITY CARE CONSULT IHE Encounter Template Text not used by [place] Plan of Treatment: Future Appointments (+ 6 months) and Future Tests (+/- 45 days) The Plan of Treatment section includes future care activities for the patient from all [place] treatmentfacilities. This section includes future appointments and future orders which are active, pending or scheduled. Future Appointments This section includes appointments that were scheduled to occur 6 months from the date of the Encounter, up to a maximum of 20 appointments. The data comes from all [place] treatment facilities. Appointment Date/Time Appointment Type Appointme nt Facility Name Jul 29, 2023 03:15 PM [facility] Oct 01, 2023 09[facility]00 [facility] Oct 29, 2023 11:30 AM AMBULATORY - MEDICINE [facility] Social History: Smoking Status (Most current) and Tobacco Use (All prior to encounter date) This section includes the most current, and the historical, smoking and tobacco- related health factors from the [facility] facility where the Encounter took place. Current Smoking Status This section includes the most current smoking, or tobacco-related health factor, from the [place] facility where the Encounter took place. Date/Time Current Smoking Status Comment Facil ity Oct 21, 2019 10:30 AM [place]-TOBACCO FORMER USER [facility] Tobacco Use History This section includes a history of the smoking, or tobacco-related health factors, that were collected on or before the date of the Encounter. The data comes from the [place] facility where the Encounter took place. Date/Time Smoking Status/Tobacco Use Comment F acility Oct 21, 2019 10:30 AM [place]-TOBACCO QUIT 15 YRS OR MORE [facility] Advance Directives: All historical and current Section Date Range: From patient's date of to the date document was created. This section includes ALL of a patient's completed or amended VA Advance and Rescinded Directives. The entries below indicate that a directive exists for the patient, but an actual copy is not included with this document. The data comes from all [place] facilities. Date Advance Directives Provider Source Oct 03, 2016 [facility] Encounter Notes: All associated encounter notes This section contains the clinical notes associated to the Encounter. Date/Time Encounter Note(s) Provider Source May 27, 2023 12:00 PM NONVA CONSULT: LOCAL TITLE: COMMUNITY CARE-CONSULT RESULT NOTE STANDARD TITLE: NONVA CONSULT DATE OF NOTE: MAY 27, 2023@12:00 ENTRY DATE: JUN 16, 2023@12:23:47 AUTHOR: CHRIS SOTELO EXP COSIGNER: URGENCY: STATUS: COMPLETED VistA Imaging - Scanned Document SCANNED DOCUMENT SIGNATURE NOT REQUIRED Electronically Filed: 06/16/2023 by: CRHIS ESCALONA CNTRL [facility]
--- OUTSIDE RECORDS SUMMARY | 2024-03-09 09:14 | XMS_ITS | Encounter Summary ---
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 Name Role Phone MAXI FULLER Primary Care [...] Name Patient's Relationship to Policy Awan [facility] June 17, 2013 [id number] Idania BENITEZ PATIENT MEDICARE (WNR) MEDICARE () PART B June 17, 2013 PART B [id number] Idania BENITEZ PATIENT MEDICARE (WNR) MEDICARE () PART A June 17, 2013 PART A [id number] Idania BENITEZ PATIENT MEDICARE (WN) MEDICARE () PART A June 17, 2013 PART A [id number] Idania BENITEZ PATIENT MEDICARE (WNR) MEDICARE () PART B June 17, 2013 PART B [id number] Idania BENITEZ PATIENT Selected Encounter This section includes the information on record at [place] for the Encounter. Date/Time Encounter Type Encounter Description Reason Provider Source May 15, 2023 10:30 AM OFFICE O/P EST MOD 30 MIN NEUROLOGY ICD-10-CM G20.C Parkinsonism, unspecified LINETTEMART Lul E Encounter Template Text not used by [place] Assessments - Encounter Diagnoses This section includes the primary and secondary diagnoses documented for the Encounter. Date/Time Primary/Secondary Diagnosis Diagnosis Name Provider Source May 16, 2023 10:40 AM PRIMARY Parkinsonism, unspecified MART SUE [place] [facility] [place] [facility] Plan of Treatment: Future Appointments (+ 6 [...] 29, 2023 03:15 PM AMBULATORY - MEDICINE [place] C [facility] [place] [facility] Oct 01, 2023 09:00 AM AMBULATORY - MEDICINE [facility] Oct 29, 2023 11:30 AM AMBULATORY - MEDICINE [place] [facility] [place] [facility] Lab Results: +/- 30 days of [...] Range Comment Apr 21, 2023 09:17 AM [facility] [place] [facility] MICROALBUMIN CREATININE RATIO PANEL Specimen Type: URINE No comment entered. Ordering Provider: MAXI FULLER Report Released Date/Time: Sep 30, 2022 08:25 AM Reporting Lab: [facility] [place] [facility] [address] [id number] Performing Lab: [facility] [address] [address] MICROALBUMIN/C REATININE RATIO 336.4 mg/g H 0-29.9 MICROALBUMIN,Q UANTITATIVE 54.0 mg/dL RR UNAVAIL CREATININE URINE 160.54 mg/dL Vital Signs: All taken on the encounter date This section contains inpatient and outpatient Vital Signs collected on the date of the Encounter. Date/Time Temperature Pulse Blood Pressure Respiratory Rate SP02 Pain Height Weight Body Mass Index Source May 15, 2023 10:34 AM 98 80 105/67 18 98 0 183.8 28 [facility] Social History: Smoking Status [...] Facil ity Oct 21, 2019 10:30 AM [place]-TOBACCO FORMER USER [facility] Tobacco Use History This section includes a history of the smoking, or tobacco-related health factors, that were collected on or before the date of the Encounter. The data comes from the [place] facility where the Encounter took place. Date/Time Smoking Status/Tobacco Use Comment F acility Oct 21, 2019 10:30 AM [place]-TOBACCO QUIT 15 YRS OR MORE [facility] Advance Directives: All historical and current [...] Encounter. Date/Time Encounter Note(s) Provider Source May 15, 2023 11:03 AM NEUROLOGY OUTPATIE NT NOTE: LOCAL TITLE: NEUROLOGY CLINIC NOTE STANDARD TITLE: NEUROLOGY OUTPATIENT NOTE DATE OF NOTE: MAY 15, 2023@11:03 ENTRY DATE: MAY 15, 2023@11:03:15 AUTHOR: LINETTE,MART Y EXP COSIGNER: URGENCY: STATUS: COMPLETED Chief Complaint: Parkinsons dz Interval Hx Apr Pt is again accompanied by son. They give congruent hx. He reports that his tremor continues to be fairly well controlled on Sinemet and rasagaline, with minimal tremors during period of peak effect. He sometimes misses the middle dose, and says that tremor does get worse when that happens. He has not been having any adverse effects from the sinemet, or any wearing off of effect prior to the next dose, as long as he takes it on time. He does have occasional problems with initiating swallow for solids, but these go down easily if he takes a drink of water afterwards. He denies any actual coughing or aspiration of food or drink. He has not had any significant constipation, change in appetite, or other bowel/bladder problems. His thinking is generally unchanged, with some delays in recall, and some poor hygeine if left to take care of himself, reportedly, but no other significant problems in terms of ADLs. He does have a SENIOR LIVING ADVISOR coming in several times a week, which is very helpful. Pt o/w denies any new issues, illness, injuries, hospitalizations, or concerns. NEUROLOGIC EXAM: Gen: WD WN WM in NAD, hypomimia, appropriate eye contact and social interaction. MS: AAO to Person/Place/Situation Able to maintain attention to conversation and follow directions on exam without distractability, impersistence, or perseveration. Fluent language and intact comprehension, without any paraphasic errors. Hypophonia, mild dysarthria CRANIAL NERVES: -II: Pupils equal, round. -III,IV,: Versions full. No nystagmus. No ptosis. -V: MOMI. -VII: Face is symmetric at rest. -VIII: Hearing is grossly intact. -IX/X: Speech is w/o dysphonia, or hoarseness MOTOR: intermittent rest tremor of moderate amp/mod freq. Upper (Shld int/ext rotate, bi/tri, wrist ext/flex, fing ext/spread/opp) 5/5 in RUE proximally and distally 5/5 in LUE proximally and distally Lower (hip e/f, hip int/ext rotate, knee e/f, dors/plant flex, invert/margarita) 5/5 in RLE proximally and distally 5/5 in LLE proximally and distally No Matched effort, no give-way strength No pronator drift, no posting No atrophy or hypertrophy noted No tremor, bradykinesia, dystonic posturing, dyskinesias, chorea, or myoclonus. COORDINATION: Fine finger movements demonstrate microkinesia>bradykinesia Rapid Alternating movements of hands--no dysdiadokinesia. GAIT/STANCE: Rises from sitting with minimal difficulty. Posture is mildly stooped, stance is mildly wide-based. No start hesitation. Gait demonstrates decreased stride length, height, speed and decreased arm swing of LUE. Vitals Enter at: May 15, 2023@10:34:02 BP: 105/67 P: 80 R: 18 T: 98 183.8 lb [83.37 kg] (05/15/2023 10:34) Assessment/Plan: 72 y/o M w/Parkinsons mostly controlled on sinemet IR 25/100mg Pt to call if new issues. Mart Sue MD Staff Neurologist [facility] ~30 mins spent on exam, assessment, counseling, and coordination [ X ] Management of Neurologic Condition was reassessed, taking into account pt's complex other medical issues and medications. [ X ] ~50% of exam was spent on discussion and education or coordination Medication Rec per A/C Tech Nursing note on Apr@07:10. NO DISCREPANCIES FOUND other than those listed in note. The patient's medication list/medication history to include Local Active VA Prescriptions, Remote Active VA Prescriptions, Non-VA medications, Recently VA Prescriptions (90-180 days), Recently Discontinued VA Prescriptions (90-180 days), and Pending Medication Orders where relevant (e.g., patient is seen by multiple providers in the same day) was compared with CPRS and reviewed with the patient/caregiver and reconciled. Any changes in medications and any medications prescribed by this provider discontinued are documented in this note. Medications not prescribed by this provider will be addressed by pt's PCM or appropriate specialty provider. Discussed risks and possible benefits and mechanism of action of medications prescribed. Pt indicated understanding of the risks of medications, and all questions were answered to pt's satisfaction /israel/ MART SUE MD PHYSICIAN Signed: 05/16/2023 10:40 MART SUE [facility]
--- OUTSIDE RECORDS SUMMARY | 2024-03-09 09:14 | XMS_ITS | Encounter Summary ---
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 Name Role Phone MAXI FULLER Primary Care [...] Awan [facility] June 17, 2013 [id number] Idania BENITEZ PATIENT MEDICARE (WNR) MEDICARE () PART A June 17, 2013 PART A [id number] Idania BENITEZ PATIENT MEDICARE (WNR) MEDICARE () PART B June 17, 2013 PART B [id number] Idania BNEITEZ PATIENT MEDICARE (WNR) MEDICARE () PART A June 17, 2013 PART A [id number] [id number] Idania BENITEZ PATIENT MEDICARE (WNR) MEDICARE () PART B June 17, 2013 PART B [id number] ELLENZZELL,W AYNE PATIENT Selected Encounter This section includes the information on record at [place] for the Encounter. Date/Time Encounter Type Encounter Description Reason Pro vider Source Jun 03, 2023 12:00 PM Outpatient Encounter COMMUNITY CARE CONSULT IHE Encounter Template Text not used by [place] Plan of Treatment: Future Appointments (+ 6 months) and Future Tests (+/- 45 days) The Plan of Treatment section includes future care activities for the patient from all [place] treatmentfacilities. This section includes future appointments and future orders which are active, pending or scheduled. Future Appointments This section includes appointments that were scheduled to occur 6 months from the date of the Encounter, up to a maximum of 20 appointments. The data comes from all [place] treatment facilities. Appointment Date/Time Appointment Type Appointme nt Facility Name Jul 29, 2023 03:15 PM [facility] Oct 01, 2023 09:00 AM [facility] Oct 29, 2023 11:30 AM AMBULATORY - MEDICINE [facility] Social History: Smoking Status (Most current) and Tobacco Use (All prior to encounter date) This section includes the most current, and the historical, smoking and tobacco- related health factors from the [place] facility where the Encounter took place. Current Smoking Status This section includes the most current smoking, or tobacco-related health factor, from the [place] facility where the Encounter took place. Date/Time Current Smoking Status Comment Facil ity Oct 21, 2019 10:30 AM [place]-TOBACCO QUIT 15 YRS OR MORE [facility] Tobacco Use History This section includes a history of the smoking, or tobacco-related health factors, that were collected on or before the date of the Encounter. The data comes from the [place] facility where the Encounter took place. Date/Time Smoking Status/Tobacco Use Comment F acility Oct 21, 2019 10:30 AM [place]-TOBACCO [facility]RS [facility] [...] this document. The data comes from all [place] facilities. Date Advance Directives Provider Source Oct 03, 2016 ADVANCE DIRECTIVE ELIZABETH SOSA [facility] Encounter Notes: All associated encounter notes This section contains the clinical notes associated to the Encounter. Date/Time Encounter Note(s) Provider Source Jun 03, 2023 12:00 PM NONVA CONSULT: LOCAL TITLE: COMMUNITY CARE-CONSULT RESULT NOTE STANDARD TITLE: NONVA CONSULT DATE OF NOTE: JUN 03, 2023@12:00 ENTRY DATE: JUNE 19, 2023@10:28:23 AUTHOR: EV HARRIS EXP COSIGNER: URGENCY: STATUS: COMPLETED VistA Imaging - Scanned Document [facility] CARE HANDS-HOME VISITS 06/02+06/06 SCANNED DOCUMENT SIGNATURE NOT REQUIRED Electronically Filed: 06/19/2023 by: EV HARRIS FAMILY LIFE COUNSELOR EV HARRIS [place] [facility]
--- OUTSIDE RECORDS SUMMARY | 2024-03-09 09:14 | XMS_ITS | Encounter Summary ---
Author Name [facility] [place] Address [address] [place] [address] Care Team Providers Care Tester Rocket Engine Name Role Phone MAXI FULLER Primary Care [...] Name Patient's Relationship to Policy Awan [facility] June 17, 2013 [id number] Idania BENITEZ PATIENT MEDICARE (WNR) MEDICARE () PART A June 17, 2013 PART A [id number] Idania BENITEZ PATIENT MEDICARE (WNR) MEDICARE () PART B June 17, 2013 PART B [id number] Idania BENITEZ PATIENT MEDICARE (WNR) MEDICARE () PART A June 17, 2013 PART A [id number] Idania BENITEZ PATIENT MEDICARE (WNR) MEDICARE () PART B June 17, 2013 PART B [id number] [id number] ELLENIdania HSIEH AYNE PATIENT Selected Encounter This section includes the information on record at [place] for the Encounter. Date/Time Encounter Type Encounter Description Reason Pro vider Source Jun 10, 2023 12:00 PM Outpatient Encounter COMMUNITY CARE [...] - MEDICINE [facility], [facility]23 09[facility]00 AM [facility] Oct 29, 2023 11:30 AM AMBULATORY - MEDICINE [facility] Social History: Smoking Status (Most current) and Tobacco Use (All prior to encounter date) This section includes the most current, and the historical, smoking and tobacco- related health factors from the [place] facility where the Encounter took place. Current Smoking Status This section includes the most current smoking, or tobacco-related health factor, from the [place] facility where the Encounter took place. Date/Time Current Smoking Status Comment Facil ity Oct 21, 2019 10:30 AM [place]-TOBACCO FORMER USER [facility] Tobacco Use History This section includes a history of the smoking, or tobacco-related health factors, that were collected on or before the date of the Encounter. The data comes from the [place] facility where the Encounter took place. Date/Time Smoking Status/Tobacco Use Comment F acility Oct 21, 2019 10:30 AM [place]-TOBACCO QUIT 15 YRS OR MORE [facility] Advance Directives: All historical and current [...] Encounter. Date/Time Encounter Note(s) Provider Source Jun 10, 2023 12:00 PM NONVA CONSULT: LOCAL TITLE: COMMUNITY CARE-CONSULT RESULT NOTE STANDARD TITLE: NONVA CONSULT DATE OF NOTE: JUN 10, 2023@12:00 ENTRY DATE: JUNE 30, 2023@12:05:38 AUTHOR: AZUCENA HUNT EXP COSIGNER: URGENCY: STATUS: COMPLETED VistA Imaging - Scanned Document SCANNED DOCUMENT SIGNATURE NOT REQUIRED Electronically Filed: 06/30/2023 by: AZUCENA CARTAGENA [place] [facility]
--- OUTSIDE RECORDS SUMMARY | 2024-03-09 09:14 | XMS_ITS ---
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 Role Phone MAXI FULLER Primary Care [...] Name Patient's Relationship to Policy Awan [facility] June 17, 2013 [id number] Idania BENITEZ PATIENT MEDICARE (WNR) MEDICARE () PART B June 17, 2013 PART B [id number] Idania BENITEZ PATIENT MEDICARE (WNR) MEDICARE () PART A June 17, 2013 PART A [id number] Idania BENITEZ PATIENT MEDICARE (WNR) MEDICARE () PART A June 17, 2013 PART A [id number] Idania BENITEZ PATIENT MEDICARE (WNR) MEDICARE () PART B June 17, 2013 PART B [id number] [id number] ELLENМАРИЯIdania SALOMON PATIENT Selected Encounter This section includes the information on record at [place] for the Encounter. Date/Time Encounter Type Encounter Description Reason Pro vider Source Apr 29, 2023 12:00 PM Outpatient Encounter COMMUNITY CARE CONSULT IHE Encounter Template Text not used by [place] Plan of Treatment: Future Appointments (+ 6 months) and Future Tests (+/- 45 days) The Plan of Treatment section includes future care activities for the patient from all [place] treatmentfacilities. This section includes future appointments and future orders which are active, pending or scheduled. Future Appointments This section includes appointments that were scheduled to occur 6 months from the date of the Encounter, up to a maximum of 20 appointments. The data comes from all [place] treatment facilities. Appointment Date/Time Appointment Type Appointme nt Facility Name May 12, 2023 11:00 AM AM[facility]ULATORY [facility] May 15, 2023 10:30 AM [facility] Jul 29, 2023 03:15 PM AMBULATORY - MEDICINE [place] [facility] [facility] Oct 01, 2023 09:00 AM AMBULATORY - MEDICINE [facility] Oct 29, 2023 11:30 AM [facility] Lab Results: +/- 30 days of the encounter This section includes the Chemistry and Hematology Lab Results on record with [place] for the patient. Radiology Reports and Pathology Reports are provided separately, in subsequent sections. Lab Results This section contains the Chemistry/Hematology Results that were resulted 30 days before or 30 daysafter the date of the Encounter. Date/Time Source Result Type Result - Unit Interpretation Reference Range Comment Apr 21, 2023 09:17 AM [facility] MICROALBUMIN CREATININE RATIO PANEL Specimen Type: URINE No comment entered. Ordering Provider: MAXI FULLER Report Released Date/Time: Sep 30, 2022 08:25 AM Reporting Lab: [facility] [address] [id number] Performing Lab: [facility] [address] [address] MICROALBUMIN/C REATININE RATIO 336.4 mg/g H 0-29.9 MICROALBUMIN,Q UANTITATIVE 54.0 mg/dL RR UNAVAIL CREATININE URINE 160.54 mg/dL Social History: Smoking Status (Most current) and Tobacco Use (All prior to encounter date) This section includes the most current, and the historical, smoking and tobacco- related health factors from the [place] facility where the Encounter took place. Current Smoking Status This section includes the most current smoking, or tobacco-related health factor, from the [place] facility where the Encounter took place. Date/Time Current Smoking Status Comment Facil ity Oct 21, 2019 10:30 AM [place]-TOBACCO FORMER USER [facility] Tobacco Use History This section includes a history of the smoking, or tobacco-related health factors, that were collected on or before the date of the Encounter. The data comes from the [place] facility where the Encounter took place. Date/Time Smoking Status/Tobacco Use Comment F acility Oct 21, 2019 10:30 AM [place]-TOBACCO QUIT 15 YRS OR MORE [facility] Advance Directives: All historical and current Section Date Range: From patient's date of to the date document was created. This section includes ALL of a patient's completed or amended [place] Advance and Rescinded Directives. The entries below indicate that a directive exists for the patient, but an actual copy is not included with this document. The data comes from all [place] facilities. Date Advance Directives Provider Source Oct 03, 2016 ADVANCE DIRECTIVE ELIZABETH SOSA Encounter Notes: All associated encounter notes This section contains the clinical notes associated to the Encounter. Date/Time Encounter Note(s) Provider Source Apr 29, 2023 12:00 PM NONVA CONSULT: LOCAL TITLE: COMMUNITY CARE-CONSULT RESULT NOTE STANDARD TITLE: NONVA CONSULT DATE OF NOTE: APR 29, 2023@12:00 ENTRY DATE: JUN 10, 2023@10:21:01 AUTHOR: CHRIS SOTELO EXP COSIGNER: URGENCY: STATUS: COMPLETED VistA Imaging - Scanned Document SCANNED DOCUMENT SIGNATURE NOT REQUIRED Electronically Filed: 06/10/2023 by: CHRIS ESCALONA [facility]
--- OUTSIDE RECORDS SUMMARY | 2024-03-09 09:14 | XMS_ITS | Encounter Summary ---
Author Name [facility] [place] Organization [facility] [place] Address [address] [place] [address] Care Team Providers Care Coal Chemist Name Role Phone MAXI FULLER Primary Care [...] Name Patient's Relationship to Policy Awan [facility] June 17, 2013 [id number] Idania BENITEZ PATIENT MEDICARE (WNR) MEDICARE () PART A June 17, 2013 PART A [id number] Idania BENITEZ PATIENT MEDICARE (WNR) MEDICARE () PART B June 17, 2013 PART B [id number] Idania BENITEZ PATIENT MEDICARE (WN) MEDICARE () PART A June 17, 2013 PART A [id number] Idania BENITEZ AYJESSENIA PATIENT MEDICARE (WNR) MEDICARE () PART B June 17, 2013 PART B [id number] BUZZELL,W AYNE PATIENT Selected Encounter This section includes the information on record at [place] for the Encounter. Date/Time Encounter Type Encounter Description Reason Pro vider Source May 12, 2023 03:34 PM Outpatient Encounter NEUROLOGY IHE Encounter Template Text not used by [place] Plan of Treatment: Future Appointments (+ 6 months) and Future Tests (+/- 45 days) The Plan of Treatment section includes future care activities for the patient from all [place] treatmentfacilities. This section includes future appointments and future orders which are active, pending or scheduled. Future Appointments This section includes appointments that were scheduled to occur 6 months from the date of the Encounter, up to a maximum of 20 appointments. The data comes from all [place] treatment facilities. Appointment Date/Time Appointment Type Appointme nt Facility Name May 15, 2023 10:30 AM [facility] Jul 29, 2023 03:15 PM [facility] Oct 01, 2023 09:00 AM [facility]ULATORY - MEDICINE [facility] Oct 29, 2023 11:30 AM [facility] Lab Results: +/- 30 days of the encounter This section includes the Chemistry and Hematology Lab Results on record with [place] for the patient. Radiology Reports and Pathology Reports are provided separately, in subsequent sections. Lab Results This section contains the Chemistry/Hematology Results that were resulted 30 days before or 30 daysafter the date of the Encounter. Date/Time Source Result Type Result - Unit Interpretation Reference Range Comment Apr 21, 2023 09:17 AM [facility] MICROALBUMIN CREATININE RATIO PANEL Specimen Type: URINE No comment entered. Ordering Provider: MAXI FULLER Report Released Date/Time: Sep 30, 2022 08:25 AM Reporting Lab: [facility] [address] [facility] [id number] Performing Lab: [facility] [address] [facility] [address] MICROALBUMIN/C REATININE RATIO 336.4 mg/g H 0-29.9 MICROALBUMIN,Q UANTITATIVE 54.0 mg/dL RR UNAVAIL CREATININE URINE 160.54 mg/dL Social History: Smoking Status (Most current) and Tobacco Use (All prior to encounter date) This section includes the most current, and the historical, smoking and tobacco- related health factors from the [place] facility where the Encounter took place. Current Smoking Status This section includes the most current smoking, or tobacco-related health factor, from the [place] facility where the Encounter took place. Date/Time Current Smoking Status Comment Rich ity Oct 21, 2019 10:30 AM VA-TOBACCO FORMER USER [facility] Tobacco Use History This section includes a history of the smoking, or tobacco-related health factors, that were collected on or before the date of the Encounter. The data comes from the [place] facility where the Encounter took place. Date/Time Smoking Status/Tobacco Use Comment F acility Oct 21, 2019 10:30 AM [place]-TOBACCO QUIT 15 YRS OR MORE [facility] Advance Directives: All historical and current Section Date Range: From patient's date of to the date document was created. This section includes ALL of a patient's completed or amended [place] Advance and Rescinded Directives. The entries below indicate that a directive exists for the patient, but an actual copy is not included with this document. The data comes from all [place] facilities. Date Advance Directives Provider Source Oct 03, 2016 ADVANCE DIRECTIVE [facility] Encounter Notes: All associated encounter notes This section contains the clinical notes associated to the Encounter. Date/Time Encounter Note(s) Provider Source May 12, 2023 03:36 PM ADMINISTRATIVE NOT E: LOCAL TITLE: ADMINISTRATIVE RECALL NOTE STANDARD TITLE: ADMINISTRATIVE NOTE DATE OF NOTE: MAY 12, 2023@15:36 ENTRY DATE: MAY 12, 2023@15:36:19 AUTHOR: MISSY CRUZ EXP COSIGNER: URGENCY: STATUS: COMPLETED RTC orders: Unable to contact patient: Attempts to contact: 1st attempt: Left voicemail 2nd attempt: Letter mailedDisposition onMay 3rd attempt: 4th attempt: /israel/ MISSY CRUZ ADVANCED PASTE THINNER Signed: 05/12/2023 15:36 Receipt Acknowledged By: 05/14/2023 11:04 /israel/ SUSIE LAUGNA SUPERVISORY PASTE THINNER MISSY CRUZ [facility] May 12, 2023 03:34 PM CLERICAL NOTE: LOCAL TITLE: APPOINTMENT NO SHOW STANDARD TITLE: CLERICAL NOTE DATE OF NOTE: MAY 12, 2023@15:34 ENTRY DATE: MAY 12, 2023@15:34:23 AUTHOR: MISSY CRUZ EXP COSIGNER: URGENCY: STATUS: COMPLETED Patient Name: LULU BENITEZ Patient SSN: [id number] Date and time of Appointment No show : 05/12/23 15:34 PATIENT PHONE - PHONE NUMBER [CELLULAR] - Patient's medical record was reviewed. Follow-up actions were determined and initiated: Please check/complete as applies: [X]Telephoned Directly [ ]Re-scheduled for next available appt [X]Sent a N0-show letter ( must call for appointment) [ ]Other (Emergent/Overbook, etc.): Additional Comments: Future Clinic Visits 10/01/2023 09:00 CWM/SO/PODIATRY/ROSS 10/22/2023 09:00 CWM/SO/PACT 10 02/04/2024 11:30 CWM/NO/OPTOMETRY/CLARA /israel/ MISSY CRUZ ADVANCED PASTE THINNER Signed: 05/12/2023 15:34 Receipt Acknowledged By: 05/14/2023 11:06 /israel/ SUSIE LAGUNA SUPERVISORY PASTE THINNER MISSY CRUZ [facility]
--- OUTSIDE RECORDS SUMMARY | 2024-03-09 09:14 | XMS_ITS | Encounter Summary ---
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 Role Phone MAXI FULLER Primary Care [...] Name Patient's Relationship to Policy Awan [facility] June 17, 2013 [id number] Idania BENITEZ PATIENT MEDICARE (WNR) MEDICARE () PART B June 17, 2013 PART B [id number] Idania BENITEZ PATIENT MEDICARE (WNR) MEDICARE () PART A June 17, 2013 PART A [id number] Idania BENITEZ PATIENT MEDICARE (WNR) MEDICARE (M) PART B June 17, 2013 PART B [id number] Idania BENITEZ PATIENT MEDICARE (WNR) MEDICARE (M) PART A June 17, 2013 PART A [id number] Idania BENITEZ PATIENT Selected Encounter This section includes the information on record at [place] for the Encounter. Date/Time Encounter Type Encounter Description Reason Pro vider Source May 16, 2023 10:31 AM Outpatient Encounter ADMIN PAT ACTIVTIES (MASNONCT) IHE Encounter Template Text not used by [place] Plan of Treatment: Future Appointments (+ 6 months) and Future Tests (+/- 45 days) The Plan of Treatment section includes future care activities for the patient from all [place] treatmentfacilities. This section includes future appointments and [...] 29, 2023 03:15 PM AMBULATORY - [facility]ICINE [facility] [place] [facility] Oct 01, 2023 09:00 AM AMBULATORY - MEDICINE [facility] Oct 29, 2023 11:30 AM [facility] Lab Results: +/- 30 days of [...] Range Comment Apr 21, 2023 09:17 AM [facility] MICROALBUMIN CREATININE RATIO PANEL Specimen Type: URINE No comment entered. Ordering Provider: MAXI FULLER Report Released Date/Time: Sep 30, 2022 08:25 AM Reporting Lab: [facility] [address] [facility] [id number] Performing Lab: [facility] [address] [facility] [id number] MICROALBUMIN/C REATININE RATIO 336.4 mg/g H 0-29.9 [...] 21, 2019 10:30 AM VA-TOBACCO FORMER USER [facility] Tobacco Use History This section includes a history of the smoking, or tobacco-related health factors, that were collected on or before the date of the Encounter. The data comes from the [place] facility where the Encounter took place. Date/Time Smoking Status/Tobacco Use Comment F acility Oct 21, 2019 10:30 AM [place]-TOBACCO QUIT 15 YRS OR MORE [facility] Advance Directives: All historical and [...] Oct 03, 2016 ADVANCE DIRECTIVE [facility] Encounter Notes: All associated encounter notes This section contains the clinical notes associated to the Encounter. Date/Time Encounter Note(s) Provider Source May 16, 2023 10:32 AM ADMINISTRATIVE NOT E: LOCAL TITLE: CCC: SCHEDULING ADMINISTRATION STANDARD TITLE: ADMINISTRATIVE NOTE DATE OF NOTE: MAY 16, 2023@10:32:05 ENTRY DATE: MAY 16, 2023@10:32:05 AUTHOR: KAUSHIK SIMON COSIGNER: URGENCY: STATUS: COMPLETED CCC: SCHEDULING ADMINISTRATION Has ADDENDA Patient Demographics Patient Name: LULU BENITEZ Patient Primary Phone: [phone] Patient Primary Address: [address] [place] [address] Patient : [id number] Patient Age: 72 Caller/Recipient Relation to Patient: Self Administrative Administrative Note Comments: [place] is requesting a call back at [phone] to discuss what to do after his neuro doctor retire. /israel/ KAUSHIK SIMON Signed: 05/16/2023 10:32 Receipt Acknowledged By: 05/16/2023 10:54 /es/ EDD ODONNELL RN REGISTERED NURSE 05/16/2023 12:45 /es/ MIKE MOLINA LPN PACT 10 05/16/2023 ADDENDUM STATUS: COMPLETED Left a VM stating that a CC consult was placed to obtain a new Neurologist for the and once the appointment is scheduled the consult team will reach out to him. /israel/ EDD ODONNELL RN REGISTERED NURSE Signed: 05/16/2023 10:55 [facility]
--- OUTSIDE RECORDS SUMMARY | 2024-03-09 09:14 | XMS_ITS | Encounter Summary ---
Author Name [facility] Address [address] [place] [address] Care Team Providers Care Director Of Acquisition Marketing Name Role Phone MAXI FULLER Primary Care [...] Awan's Name Patient's Relationship to Policy Awan [facility] June 17, 2013 [id number] ELLENIdania HSIEH PATIENT MEDICARE (WNR) MEDICARE () PART A June 17, 2013 PART A [id number] Idania BENITEZ PATIENT MEDICARE (WNR) MEDICARE () PART B June 17, 2013 PART B [id number] Idania BENITEZ PATIENT MEDICARE (WN) MEDICARE () PART A June 17, 2013 PART A [id number] Idania BENITEZ PATIENT MEDICARE (WNR) MEDICARE () PART B June 17, 2013 PART B [id number] ELLENМАРИЯIdania SALOMON PATIENT Selected Encounter This section includes the information on record at [place] for the Encounter. Date/Time Encounter Type Encounter Description Reason Provider Source Apr 16, 2023 09:00 AM OFFICE O/P EST LOW 20 MIN PODIATRY ICD-10-CM L60.3 Nail dystrophy TOMASA GANDHI Manjinder Encounter Template Text not used by [place] Assessments - Encounter Diagnoses This section includes the primary and secondary diagnoses documented for the Encounter. Date/Time Primary/Secondary Diagnosis Diagnosis Name Provider Source May 03, 2023 08:20 AM PRIMARY Nail dystrophy TOMASA GANDHI [place] May 03, 2023 08:20 AM SECONDARY Ingrowing nail TOMASA GANDHI [place] May 03, 2023 08:20 AM SECONDARY Pain in left toe(s) TOMASA GANDHI [place] May 03, 2023 08:20 AM SECONDARY Pain in right toe(s) TOMASA GANDHI [place] May 03, 2023 08:20 AM SECONDARY Type 2 diabetes w diabetic peripheral angiopath w/o gangrene TOMASA GANDHI Plan of Treatment: Future Appointments (+ 6 months) and Future Tests (+/- 45 days) The Plan of Treatment section includes future care activities for the [facility] [place] [facility] This section includes future appointments and future orders which are active, pending or scheduled. Future Appointments This section includes appointments that were scheduled to occur 6 months from the date of the Encounter, up to a maximum of 20 appointments. The data comes from all [place] treatment facilities. Appointment Date/Time Appointment Type Appointme nt Facility Name Apr 21, 2023 08:30 AM AMBULATORY [facility] May 12, 2023 11:00 AM [facility] May 15, 2023 10:30 AM [facility] Jul 29[facility] 2023 03:15 PM [facility] Oct 01, 2023 09:00 AM AMBULATORY - MEDICINE [facility] Lab Results: +/- 30 days of the encounter This section includes the Chemistry and Hematology Lab Results on record with [place] for the patient. Radiology Reports and Pathology Reports are provided separately, in subsequent sections. Lab Results This section contains the Chemistry/Hematology Results that were resulted 30 days before or 30 daysafter the date of the Encounter. Date/Time Source Result Type Result - Unit Interpretation Reference Range Comment Apr 21, 2023 09:17 AM [facility] MICROALBUMIN CREATININE RATIO PANEL Specimen Type: URINE No comment entered. Ordering Provider: MAXI FULLER Report Released Date/Time: Sep 30, 2022 08:25 AM Reporting Lab: [facility] [place] [facility] [address] [address] Performing Lab: [facility] [address] [address] MICROALBUMIN/C REATININE RATIO 336.4 mg/g H 0-29.9 MICROALBUMIN,Q UANTITATIVE 54.0 mg/dL RR UNAVAIL CREATININE URINE 160.54 mg/dL Mar 24, 2023 07:33 AM [facility] FOLATE Specimen Type: SERUM No comment entered. Ordering Provider: MAXI FULLER Report Released Date/Time: Sep 30, 2022 08:25 AM Reporting Lab: [facility] [place] [facility] [address] [facility] [address] Performing Lab: [facility] [address] [address] FOLATE 14.25 ng/mL >5.2 Mar 24, 2023 07:33 AM [facility] TSH Specimen Type: SERUM No comment entered. Ordering Provider: MAXI FULLER Report Released Date/Time: Sep 30, 2022 08:25 AM Reporting Lab: [facility] [place] [facility] [address] [facility] [address] Performing Lab: [facility] [address] [address] TSH 1.78 u[IU]/mL 0.35-5.00 Mar 24, 2023 07:33 AM [facility] HEMOGLOBIN A1C PANEL Specimen Type: [...] Sep 30, 2022 08:25 AM Reporting Lab: [facility] [address] [facility] [address] Performing Lab: [facility]TR[facility] [address] [facility] [address] HEMOGLOBIN A1C 5.9 H 4.0-5.6 Mar 24, 2023 07:33 AM [facility] VITAMIN B12 Specimen Type: SERUM No comment entered. Ordering Provider: MAXI FULLER Report Released Date/Time: Sep 30, 2022 08:25 AM Reporting Lab: [facility] [address] [address] Performing Lab: [facility]USE[address] [address] VITAMIN B12 544 pg/mL 200-900 Mar 24, 2023 07:33 AM [facility] VITAMIN D (25-OH) Specimen Type: SERUM No comment entered. Ordering Provider: MAXI FULLER Report Released Date/Time: Sep 30, 2022 08:25 AM Reporting Lab: [facility] [address] Performing Lab: [facility] [address] VITAMIN D (25-OH) 36 ng/mL 20-50 Mar 24, 2023 07:33 AM [facility] LIPID PANEL FASTING Specimen Type: SERUM No comment entered. Ordering Provider: MAXI FULLER Report Released Date/Time: Sep 30, 2022 08:25 AM Reporting Lab: [facility] [address] [address] Performing Lab: [facility] [address] [address] CHOLESTEROL 147 mg/dL TRIGLYCERIDE 102 mg/dL 0-150 LDL calculated 78 mg/dL 0-129 CHOL/HDL 3.0 HDL CHOLESTEROL 49 mg/dL 40-60 Mar 24, 2023 07:33 AM [facility] LIVER FUNCTION Specimen Type: SERUM No comment entered. Ordering Provider: MAXI FULLER Report Released Date/Time: Sep 30, 2022 08:25 AM Reporting Lab: [facility] [address] [facility] [address] Performing Lab: [address] [address] PROTEIN,TOTAL 7.1 g/dL 6.0-8.3 ALBUMIN 3.9 g/dL 3.5-5.0 ALKALINE PHOSPHATASE 76 U/L 40-150 AST 19 U/L 5-34 ALT 18 U/L BILIRUBIN, TOTAL 1.0 mg/dL 0.2-1.2 Mar 24, 2023 07:33 AM [facility] BASIC METABOLIC PANEL (fasting) Specimen Type: SERUM No comment entered. Ordering Provider: MAXI FULLER Report Released Date/Time: Sep 30, 2022 08:25 AM Reporting Lab: [address] [address] Performing Lab: [address] [address] UREA NITROGEN 18 mg/dL 7-25 GLUCOSE 100 mg/dL 65-100 SODIUM 144 mmol/L 135-145 POTASSIUM 4.4 mmol/L 3.5-5.0 CHLORIDE 107 mmol/L 100-110 CO2 27 meq/L 20-30 CREATININE, Serum 1.32 mg/dL 0.50-1.40 eGFR(CKD-EPI 2020) 56 mL/min L >60 Mar 24, 2023 07:33 AM [facility] CBC AND DIFF (AUTO) Specimen Type: BLOOD No comment entered. Ordering Provider: MXAI FULLER Report Released Date/Time: Sep 30, 2022 08:25 AM Reporting Lab: [facility] [address] [facility] [address] Performing Lab: [address] [address] WBC 6.28 10*3/uL 4.50-11.00 RBC 5.29 10*6/uL 4.23-5.66 HGB 15.7 g/dL 12.8-17 HCT 47.8 39.2-50.4 MCV 90.4 fL 82-99 MCHC 32.8 g/dL 30.8-35.1 PLT 165 10*3/uL 140-360 RDW-CV 12.8 12.0-16.0 [place], Abs 0.49 10*3/uL 0.30-1.10 MCH 29.7 pg 26.2-32.6 Neut % 39.7 L 43.7-75.8 Lymph % 47.9 H 14.0-42.3 [place] % 7.8 5.1-13.7 Eos % 3.5 0.4-6.8 [...] and tobacco- related health factors from the [place] facility where the Encounter took place. Current Smoking Status This section includes the most current smoking, or tobacco-related health factor, from the [place] facility where the Encounter took place. Date/Time Current Smoking Status Comment Rich ity Sep 30, 2022 10:30 AM MI-TOBACCO QUIT 15 YRS OR MORE [place] Tobacco Use History This section includes a history of the smoking, or tobacco-related health factors, that were collected on or before the date of the Encounter. The data comes from the [place] facility where the Encounter took place. Date/Time Smoking Status/Tobacco Use Comment F acility Sep 30, 2022 10:30 AM MI-TOBACCO QUIT 15 YRS OR MORE [place] Sep 18, 2021 09:30 AM VA-TOBACCO FORMER USER [place] Sep 18, 2021 09:30 AM VA-TOBACCO QUIT 15 YRS OR MORE [place] Sep 28, 2020 09:00 AM VA-TOBACCO FORMER USER [place] Sep 28, 2020 09:00 AM VA-TOBACCO QUIT 15 YRS OR MORE [place] Apr 16, 2018 10:29 AM VA-TOBACCO FORMER USER [place] Apr 16, 2018 10:29 AM VA-TOBACCO QUIT 15 YRS OR MORE [place] Jul 18, 2017 12:44 PM QUIT TOBACCO USE > 7 YEARS AGO [place] Sep 02, 2016 08:40 AM QUIT TOBACCO USE > 7 YEARS AGO quit smoking cigarettes in 1994 [place] Advance Directives: All historical and current Section Date Range: From patient's date of to the date document was created. This section includes ALL of a patient's completed or amended [place] Advance and Rescinded Directives. The entries below indicate that a directive exists for the patient, but an actual copy is not included with this document. The data comes from all [place] facilities. Date Advance Directives Provider Source Oct 03, 2016 ADVANCE DIRECTIVE [facility] Encounter Notes: All associated encounter notes This section contains the clinical notes associated to the Encounter. Date/Time Encounter Note(s) Provider Source Apr 16, 2023 07:29 AM PODIATRY NOTE: LOCAL TITLE: PODIATRY NOTE STANDARD TITLE: PODIATRY NOTE DATE OF NOTE: APR 16, 2023@07:29 ENTRY DATE: APR 16, 2023@07:29:07 AUTHOR: TOMASA GANDHI COSIGNER: URGENCY: STATUS: COMPLETED NOTE: HAS RECEIVED BOTH COVID VACCINE DOSES + BOOSTER AT [facility] LAST SEEN FOR TREATMENT: 11/11/2022 S: Pt. is a 72 yo alert [facility] MALE who presents for continued evaluation & [...] LIST NEEDED. *NOTE: A1c=5.9 (LAST TAKEN: 03/2023) FS= DNP RISK =2 HEIGHT:187.3 lb [85.1 kg] [...] present physical-medical status. Protective sensation utilizing a [employer]on lOg monofilament is 10/10 bilateral. ABOVE exams [...] AND UNDERSTANDS PLAN & RECEIVED MIRROR DISCUSSED HAVING QUIET HOLIDAYS Medication Reconciliation: PERFORMED TODAY - SEE BELOW. Outpatient: Has the patient been taking medications as documented in the EMLR? YES: The patient has been taking medications as documented in the EMLR. Essential Medication List for Review used to complete this medication reconciliation. INCLUDED IN THIS LIST: Alphabetical list of active outpatient prescriptions dispensed from this [facility] (local) and dispensed from another [place] or [facility] facility (remote) as well as inpatient orders [...] Remote Allergy/ADR Data available for this patient [facility] [place] [facility] No Known Allergies Med Recon NoGlossary (Tool #1) INCLUDED IN THIS LIST: Alphabetical list of active outpatient prescriptions dispensed from this [place] (local) and dispensed from another [place] or [facility] facility (remote) as well as inpatient orders (local pending and active), local clinic medications, locally documented non-VA medications, and local prescriptions that have or been discontinued in the past 90 days. Non-VA Meds Last Documented On: Oct 03, 2016 NOTE The display of VA prescriptions dispensed from another [place] or [facility] facility (remote) is limited to active outpatient prescription entries matched to National Drug File at the originating site and may not include some items such as investigational drugs, compounds, etc. NOT INCLUDED IN THIS LIST: Medications self-entered by the patient into personal health records (i.e. CC video) are NOT included in this list. Non-VA medications documented outside this [place], remote inpatient orders (regardless of status) and remote clinic medications are NOT included in this list. The patient and provider must always discuss medications the patient is taking, regardless of where the medication was dispensed or obtained. OUTPT ATORVASTATIN CALCIUM 40MG TAB (Status = Active) TAKE ONE-HALF TABLET BY MOUTH DAILY FOR CHOLESTEROL Rx# [id number] Last Released: 03/14/23 Qty/Days Supply: 45 Rx Expiration Date: 10/01/23 Refills Remainin OUTPT CARBIDOPA 25/LEVODOPA 100MG TAB (Status = Active) TAKE 1 TABLET BY MOUTH THREE TIMES A DAY Rx# [id number] Last Released: 03/10/23 Qty/Days Supply: 270/90 Rx Expiration Date: 06/29/23 Refills Remainin Non-VA CHOLECALCIF 50MCG (D3-2,000UNIT) TAB TAKE ONE TABLET BY MOUTH DAILY Medication prescribed by Non-VA provider. OUTPT DOCUSATE NA 100MG CAP (Status = Active) TAKE ONE CAPSULE BY MOUTH TWICE DAILY TO SOFTEN STOOL Rx# [id number] Last Released: 07/08/22 Qty/Days Supply: 200/90 Rx Expiration Date: 06/29/23 Refills Remainin OUTPT MELATONIN 3MG CAP/TAB (Status = Active) TAKE ONE CAPSULE/TABLET BY MOUTH AT BEDTIME Rx# [id number] Last Released: 07/02/22 Qty/Days Supply: 120/90 Rx Expiration Date: 06/29/23 Refills Remainin OUTPT POLYETHYLENE GLYCOL 3350 ORAL PWDR (Status = Active) TAKE 17 GRAMS (1 CAPFUL) BY MOUTH TWICE DAILY NEEDED FOR CONSTIPATION [MIX WITH 4 TO 8OZ. OF BEVERAGE] Rx# [id number] Last Released: 07/02/22 Qty/Days Supply: 510/90 Rx Expiration Date: 06/29/23 Refills Remainin OUTPT RASAGILINE MESYLATE 1MG TAB (Status = Active) TAKE ONE TABLET BY MOUTH ONCE DAILY Rx# [id number] Last Released: 03/10/23 Qty/Days Supply: 90/90 Rx Expiration Date: 06/29/23 Refills Remainin Non-VA VITAMIN B COMPLEX CAP TAKE 1 CAPSULE BY MOUTH DAILY Medication prescribed by Non-VA provider. SUPPLIES /israel/ TOMASA GANDHI DPM TENTERING MACHINE FEEDER Signed: 04/16/2023 09:08 TOMASA GANDHI
--- OUTSIDE RECORDS SUMMARY | 2024-03-09 09:14 | XMS_ITS | Encounter Summary ---
Author Name [facility] [facility] [place] [facility] [place] Address [address] [place] [address] Care Team Providers Care Mink Farmer Name Role Phone MAXI FULLER Primary Care [...] Awan's Name Patient's Relationship to Policy Awan [facility] June 17, 2013 [id number] ELLENIdania HSIEH PATIENT MEDICARE (WNR) MEDICARE () PART A June 17, 2013 PART A [id number] Idania BENITEZ PATIENT MEDICARE (WNR) MEDICARE () PART B June 17, 2013 PART B [id number] Idania BENITEZ PATIENT MEDICARE (WN) MEDICARE () PART A June 17, 2013 PART A [id number] Idania BENITEZ PATIENT MEDICARE (WNR) MEDICARE () PART B June 17, 2013 PART B [id number] ELLENМАРИЯIdania SALOMON PATIENT Selected Encounter This section includes the information on record at [place] for the Encounter. Date/Time Encounter Type Encounter Description Reason Provider Source Apr 21, 2023 08:30 AM OFFICE O/P EST MOD 30 MIN PRIMARY CARE/MEDICINE ICD-10-CM G20.C Parkinsonism, unspecified MAXI FULLER Manjinder Encounter Template Text not used by [place] Assessments - Encounter Diagnoses This section includes the primary and secondary diagnoses documented for the Encounter. Date/Time Primary/Secondary Diagnosis Diagnosis Name Provider Source May 01, 2023 08:08 AM PRIMARY Parkinsonism, unspecified MAXI FULLER SANG May 01, 2023 08:08 AM SECONDARY Hyperlipidemia, unspecified MAXI FULLER SANG May 01, 2023 08:08 AM SECONDARY Type 2 diabetes mellitus without complications MAXI FULLER Plan of Treatment: Future Appointments (+ 6 months) and Future Tests (+/- 45 days) The Plan of Treatment section includes future care activities for the patient from all [place] treatmentfacilities. This section includes future appointments and future orders which are active, pending or scheduled. Future Appointments This section includes appointments that were scheduled to occur 6 months from the date of the Encounter, up to a maximum of 20 appointments. The data comes from all [place] treatment facilities. Appointment Date/Time Appointment Type Appointme nt Facility Name May 12, 2023 11:00 AM [facility] May 15[facility] 2023 10:30 AM [facility] [place] [facility] [facility] [place] [facility] Jul 29, 2023 03:15 PM AMBULATORY - MEDICINE [facility] [facility] Oct 01, 2023 09:00 AM AMBULATORY - MEDICINE [facility] Lab Results: +/- 30 days of the encounter This section includes the Chemistry and Hematology Lab Results on record with [place] for the patient. Radiology Reports and Pathology Reports are provided separately, in subsequent sections. Lab Results This section contains the Chemistry/Hematology Results that were resulted 30 days before or 30 daysafter the date of the Encounter. Date/Time Source Result Type Result - Unit Interpretation Reference Range Comment Apr 21, 2023 09:17 AM [facility] MICROALBUMIN CREATININE RATIO PANEL Specimen Type: URINE No comment entered. Ordering Provider: MAXI FULLER Report Released Date/Time: Sep 30, 2022 08:25 AM Reporting Lab: [facility] [place] [facility] [address] [facility] [address] Performing Lab: [facility] [place] [facility] [address] [facility] [address] MICROALBUMIN/C REATININE RATIO 336.4 mg/g H 0-29.9 MICROALBUMIN,Q UANTITATIVE 54.0 mg/dL RR UNAVAIL CREATININE URINE 160.54 mg/dL Mar 24, 2023 07:33 AM [facility] FOLATE Specimen Type: SERUM No comment entered. Ordering Provider: MAXI FULLER Report Released Date/Time: Sep 30, 2022 08:25 AM Reporting Lab: [facility] [place] [facility] [address] [facility] [address] Performing Lab: [facility] [address] [facility] [address] FOLATE 14.25 ng/mL >5.2 Mar 24, 2023 07:33 AM [facility] HEMOGLOBIN A1C PANEL Specimen Type: BLOOD Comment: [...] Sep 30, 2022 08:25 AM Reporting Lab: [facility] [place] [facility] [address] [facility] [address] Performing Lab: [facility] [address] [facility] [address] HEMOGLOBIN A1C 5.9 H 4.0-5.6 Mar 24, 2023 07:33 AM [facility] TSH Specimen Type: SERUM No comment entered. Ordering Provider: MAXI FULLER Report Released Date/Time: Sep 30, 2022 08:25 AM Reporting Lab: [facility]RN [facility] [address] [facility] [address] Performing Lab: [facility] [place] [facility] [address] [facility] [address] TSH 1.78 u[IU]/mL 0.35-5.00 Mar 24, 2023 07:33 AM [facility]RN [facility] VITAMIN B12 Specimen Type: SERUM No comment entered. Ordering Provider: MAXI FULLER Report Released Date/Time: Sep 30, 2022 08:25 AM Reporting Lab: [facility] [place] [facility] [address] [facility] [address] Performing Lab: [facility] [address] [facility] [address] VITAMIN B12 544 pg/mL 200-900 Mar 24, 2023 07:33 AM [facility] VITAMIN D (25-OH) Specimen Type: SERUM No comment entered. Ordering Provider: MAXI FULLER Report Released Date/Time: Sep 30, 2022 08:25 AM Reporting Lab: [facility] [place] [facility] [address] [facility] [address] Performing Lab: [facility]ATRN [facility] [address] [facility] [address] VITAMIN D (25-OH) 36 ng/mL 20-50 Mar 24, 2023 07:33 AM [facility] LIPID PANEL FASTING Specimen Type: SERUM No comment entered. Ordering Provider: MAXI FULLER Report Released Date/Time: Sep 30, 2022 08:25 AM Reporting Lab: [facility] [place] [facility] [address] [facility] [address] Performing Lab: [facility] [place] [address] [address] CHOLESTEROL 147 mg/dL TRIGLYCERIDE 102 mg/dL 0-150 LDL calculated 78 mg/dL 0-129 CHOL/HDL 3.0 HDL CHOLESTEROL 49 mg/dL 40-60 Mar 24, 2023 07:33 AM [facility] LIVER FUNCTION Specimen Type: SERUM No comment entered. Ordering Provider: MAXI FULLER Report Released Date/Time: Sep 30, 2022 08:25 AM Reporting Lab: [facility] [address] [facility] [address] Performing Lab: [facility] [address] [facility] [address] PROTEIN,TOTAL 7.1 g/dL 6.0-8.3 ALBUMIN 3.9 g/dL 3.5-5.0 ALKALINE PHOSPHATASE 76 U/L 40-150 AST 19 U/L 5-34 ALT 18 U/L BILIRUBIN, TOTAL 1.0 mg/dL 0.2-1.2 Mar 24, 2023 07:33 AM [facility] BASIC METABOLIC PANEL (fasting) Specimen Type: SERUM No comment entered. Ordering Provider: MAXI FULLER Report Released Date/Time: Sep 30, 2022 08:25 AM Reporting Lab: [address] [address] Performing Lab: [address] [address] UREA NITROGEN 18 mg/dL 7-25 GLUCOSE 100 mg/dL 65-100 SODIUM 144 mmol/L 135-145 POTASSIUM 4.4 mmol/L 3.5-5.0 CHLORIDE 107 mmol/L 100-110 CO2 27 meq/L 20-30 CREATININE, Serum 1.32 mg/dL 0.50-1.40 eGFR(CKD-EPI 2020) 56 mL/min L >60 Mar 24, 2023 07:33 AM [facility] CBC AND DIFF (AUTO) Specimen Type: BLOOD No comment entered. Ordering Provider: MAXI FULLER Report Released Date/Time: Sep 30, 2022 08:25 AM Reporting Lab: [facility] [address] [facility] [address] Performing Lab: [address] [address] WBC 6.28 10*3/uL 4.50-11.00 RBC 5.29 10*6/uL 4.23-5.66 HGB 15.7 g/dL 12.8-17 HCT 47.8 39.2-50.4 MCV 90.4 fL 82-99 MCHC 32.8 g/dL 30.8-35.1 PLT 165 10*3/uL 140-360 RDW-CV 12.8 12.0-16.0 Waller, Abs 0.49 10*3/uL 0.30-1.10 MCH 29.7 pg 26.2-32.6 Neut % 39.7 L 43.7-75.8 Lymph % 47.9 H 14.0-42.3 Waller % 7.8 5.1-13.7 Eos % 3.5 0.4-6.8 [...] and tobacco- related health factors from the [place] facility where the Encounter took place. Current Smoking Status This section includes the most current smoking, or tobacco-related health factor, from the [place] facility where the Encounter took place. Date/Time Current Smoking Status Comment Rich itdariel Sep 30, 2022 10:30 AM VA-TOBACCO FORMER USER [facility] Tobacco Use History This section includes a history of the smoking, or tobacco-related health factors, that were collected on or before the date of the Encounter. The data comes from the [place] facility where the Encounter took place. Date/Time Smoking Status/Tobacco Use Comment F acility Sep 30, 2022 10:30 AM VA-TOBACCO QUIT 15 YRS OR MORE [facility] Sep 18, 2021 09:30 AM VA-TOBACCO FORMER USER [facility] Sep 18, 2021 09:30 AM VA-TOBACCO QUIT 15 YRS OR MORE [facility] Sep 28, 2020 09:00 AM VA-TOBACCO FORMER USER [facility] Sep 28, 2020 09:00 AM VA-TOBACCO QUIT 15 YRS OR MORE [facility] Apr 16, 2018 10:29 AM VA-TOBACCO FORMER USER [facility] Apr 16, 2018 10:29 AM VA-TOBACCO QUIT 15 YRS OR MORE [facility] Jul 18, 2017 12:44 PM QUIT TOBACCO USE > 7 YEARS AGO [facility] Sep 02, 2016 08:40 AM QUIT TOBACCO USE > 7 YEARS AGO quit smoking cigarettes in 1994 [facility] Advance Directives: All historical and current Section Date Range: From patient's date of to the date document was created. This section includes ALL of a patient's completed or amended [place] Advance and Rescinded Directives. The entries below indicate that a directive exists for the patient, but an actual copy is not included with this document. The data comes from all [place] facilities. Date Advance Directives Provider Source Oct 03, 2016 ADVANCE DIRECTIVE ELIZABETH SOSA [facility] Encounter Notes: All associated encounter notes This section contains the clinical notes associated to the Encounter. 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 The [place]/caregiver was informed that we will continue to ask this screening question every 5 years. They can contact their provider/healthcare team if they have concerns about exposures and would like to be screened sooner. Printed information was offered and provided if desired. Homelessness/Food Insecurity Screen: In the past 2 months, have you been living in stable housing that you own, rent, or stay in as part of a household? Yes - Living in stable housing. Are you worried or concerned that in the next 2 months you may NOT have stable housing that you own, rent, or stay in as part of a household? No - Not worried about housing near future The [place] reports the following: Within the past 12 months, you worried whether your food would run out before you got money to buy more. Never true Within the past 12 months, the food you bought just didn't last and you didn't have money to get more. Never true PTSD Screening: PC-PTSD-5 A PTSD screening test (PC-PTSD-5) was negative (score=0). IN THE PAST MONTH, have you ever had any experience that was so frightening, horrible or traumatic. For example: A serious accident or fire a physical or sexual assault or abuse An earthquake or flood A war Seeing someone be killed or seriously injured Having a loved one through homicide or suicide 1. Have you ever experienced this kind of event? NO 2. Had nightmares about the event(s) or thought about the event(s) when you did not want to? Response not required due to responses to other questions. 3. Tried hard not to think about the event(s) or went out of your way to avoid situations that reminded you of the event(s)? Response not required due to responses to other questions. 4. Been constantly on guard, watchful, or easily startled? Response not required due to responses to other questions. 5. Sells numb or detached from people, activities, or your surroundings? Response not required due to responses to other questions. 6. Sells guilty or unable to stop blaming yourself or others for the event(s) or any problems the event(s) may have caused? Response not required due to responses to other questions. Influenza Immunization: The patient declines to receive the recommended dose of seasonal influenza vaccine. Immunization: INFLUENZA, UNSPECIFIED FORMULATION Refusal Reason: PATIENT DECISION Patient refuses all immunization(s) in the FLU group Date Documented: 04/21/23 08:30 Sexual Orientation: The patient thinks of their sexual orientation as: Straight or Heterosexual RHS Screen: RHS Screen Session Format: Face to Face Environmental Check Upon inquiry, the individual reports that the environment is safe to proceed. Informed Consent to Screen and Document The individual consents to proceed with screening. The individual consents to documentation of responses. PRIMARY SCREEN: In the past 12 months, how often did a current or former intimate partner (e.g., boyfriend, girlfriend, , , sexual partner): 1. Scream or curse at you Never 2. Insult or talk down to you Never 3. Threaten you with harm Never 4. Physically hurt you Never 5. Force or pressure you to have sexual contact against your will, or when you were unable to say no Never ?? The HITS tool (items 1-4 above) is [place] copyright protected by Tu Alvarez MD, and the user has full rights to use it throughout the [place] system. PRIMARY SCREEN RESULT: The Primary Screen is NEGATIVE. The individual answered never to all forms of IPV above (i.e., answered never to all 5 items) The individual accepts education and/or resources: No EDUCATION: The individual indicated readiness to learn. Education offered during this session as noted above. The individual indicated understanding by asking relevant questions and making appropriate comments. No barriers to learning were observed or identified. /israel/ MIKE MOLINA LPN PACT 10 Signed: 04/21/2023 08:32 MIKE MOLINA Apr 21, 2023 05:18 AM PHYSICIAN NOTE: LOCAL TITLE: MD NOTE STANDARD TITLE: PHYSICIAN NOTE DATE OF NOTE: APR 21, 2023@05:18 ENTRY DATE: APR 21, 2023@05:18:52 AUTHOR: MAXI FULLER EXP COSIGNER: URGENCY: STATUS: COMPLETED HISTORY OF PRESENT ILLNESS: LULU BENITEZ, is a 72 yo MALE , who presents at the [facility] for his annual wellness exam. Labs completed. Spoke to his son Ric last year (who is also a patient at the [place]) and he informed me that he felt his father needed a BURNER OPERATOR. He stated that he had poor hygiene, suffered a fall, needed meals prepared, and someone to bring him to the store for food. [place] is disabled herself and has her own BURNER OPERATOR and therefore unable to help at all. Questioned about what services the BURNER OPERATOR is providing him and he responded with cleaning the house and doing laundry. He states he does not use or need services for ADL's. His 's BURNER OPERATOR does the shopping for them. Lisinopril 5mg/day was stopped 03/21/22 due to low blood pressure readings. Active problems - Computerized Problem List is the source for the followin. Vitamin D deficiency 2. Type 2 diabetes mellitus 3. Colonoscopy Screening 4. Fatty liver 5. Parkinson's disease 6. Hypercholesterolemia The following VA and Non-VA meds were reconciled with patient: Active Outpatient Medications (including Supplies): Issue Date Status Last Fill Active Outpatient Medications Refills Expiration ======= 1) ATORVASTATIN CALCIUM 40MG TAB Qty: 45 ACTIVE Issu:09-30-22 for 90 days Sig: TAKE ONE-HALF TABLET Refills: 1 Last:03-19-23 BY MOUTH DAILY FOR CHOLESTEROL Expr:10-01-23 2) CARBIDOPA 25/LEVODOPA 100MG TAB Qty: ACTIVE Issu:06-28-22 270 for 90 days Sig: TAKE 1 TABLET BY Refills: 1 Last:03-08-23 MOUTH THREE TIMES A DAY Expr:06-29-23 3) DOCUSATE NA 100MG CAP Qty: 200 for 90 ACTIVE Issu:06-28-22 days Sig: TAKE ONE CAPSULE BY MOUTH Refills: 3 Last:06-29-22 TWICE DAILY TO SOFTEN STOOL Expr:06-29-23 4) MELATONIN 3MG CAP/TAB Qty: 120 for 90 ACTIVE Issu:06-28-22 days Sig: TAKE ONE CAPSULE/TABLET BY Refills: 3 Last:06-29-22 MOUTH AT BEDTIME Expr:06-29-23 5) POLYETHYLENE GLYCOL 3350 ORAL PWDR Qty: ACTIVE Issu:06-28-22 510 for 90 days Sig: TAKE 17 GRAMS (1 Refills: 3 Last:06-29-22 CAPFUL) BY MOUTH TWICE DAILY NEEDED Expr:06-29-23 FOR CONSTIPATION [MIX WITH 4 TO 8OZ. OF BEVERAGE] 6) RASAGILINE MESYLATE 1MG TAB Qty: 90 for ACTIVE Issu:06-28-22 90 days Sig: TAKE ONE TABLET BY MOUTH Refills: 1 Last:03-08-23 ONCE DAILY Expr:06-29-23 Start Date Active Non-VA Medications Refills Expiration ======= 1) Non-VA CHOLECALCIF 50MCG (D3-2,000UNIT) ACTIVE TAB SiUNIT BY MOUTH DAILY 2) Non-VA VITAMIN B COMPLEX CAP Si ACTIVE CAPSULE BY MOUTH DAILY 8 Total Medications ALLERGIES: ========= Patient has answered NKA LAB HISTORY: CHEM 7 TREND LAB CUMULATIVE SELECTED Collection DT Spec GLUCOSE BUN CREATIN Sodium K+/Pot CL CO2 03/24/2023 07:33 SERUM 100 18 1.32 144 4.4 107 27 09/23/2022 07:51 SERUM 98 16 1.25 141 4.3 106 25 03/15/2022 08:11 SERUM 117 H 15 1.08 142 4.9 106 28 09/07/2021 08:25 SERUM 109 H 15 1.09 142 4.4 109 24 03/30/2021 08:41 SERUM 114 H 14 1.17 140 4.5 106 24 CBC TREND Collection DT Spec WBC RBC HGB HCT MCV MCH PLT 03/24/2023 07:33 BLOOD 6.28 5.29 15.7 47.8 90.4 29.7 165 03/15/2022 08:11 BLOOD 6.34 5.46 15.8 49.7 91.0 28.9 184 03/30/2021 08:41 BLOOD 5.94 5.30 15.3 47.6 89.8 28.9 168 10/18/2019 10:14 BLOOD 5.75 5.09 15.0 45.8 90.0 29.5 165 10/05/2018 10:12 BLOOD 5.04 5.18 15.1 46.1 89.0 29.2 151 HEMOGLOBIN A1C TREND Collection DT Spec HGBA1c 03/24/2023 07:33 BLOOD 5.9 H 09/23/2022 07:51 BLOOD 5.8 H 03/15/2022 08:11 BLOOD 5.8 H 09/07/2021 08:25 BLOOD 5.9 H 03/30/2021 08:41 BLOOD 6.1 H LIPID PANEL TREND Collection DT Spec CHOL HDL CHO/HDL LDL-c TRIG 03/24/2023 07:33 SERUM 147 49 3.0 78 102 03/15/2022 08:11 SERUM 140 53 2.6 69 88 03/30/2021 08:41 SERUM 145 49 3.0 72 118 09/25/2020 08:33 SERUM 145 43 3.4 80 109 10/18/2019 10:14 SERUM 145 46 3.2 77 112 LIVER PANEL TREND Collection DT Spec AST ALT T BILI ALK RICARDO T. PROT ALBUMIN 03/24/2023 07:33 SERUM 19 18 1.0 76 7.1 3.9 03/15/2022 08:11 SERUM 20 25 0.9 78 7.0 3.8 03/30/2021 08:41 SERUM 15 <6 1.3 H 75 7.1 3.8 09/25/2020 08:33 SERUM 21 9 0.8 70 6.7 3.7 10/18/2019 10:14 SERUM 13 <6 1.0 73 6.5 3.6 Collection DT Spec TSH 03/24/2023 07:33 SERUM 1.78 HISTORY: PERIOD OF SERVICE - [employer] FROM Sep TO May COMBAT SERVICE INDICATED: No VITAL SIGNS: Blood Pressure 117/75 (04/21/2023 08:28) Pulse 70 (04/21/2023 08:28) Respiration 16 (04/21/2023 08:28) Pulse Oximetry 98% (04/21/2023 08:28) Temperature 98.4 F [36.9 C] (04/21/2023 08:28) Pain 0 (04/21/2023 08:28) Height 68 in [172.7 cm] (04/21/2023 08:28) Weight 181.4 lb [82.28 kg] (04/21/2023 08:28) BMI BMI: 27.6 REVIEW OF SYSTEMS: ENT: No sore throat, no cough CARDIOVASCULAR: No chest pain, no palpitations RESPIRATORY: No SOB, no wheezing GASTROINTESTINAL: No abd pain, no N/V/D GENITOURINARY: No dysuria, no hematuria MUSCULOSKELETAL: No joint pain, no joint swelling PSYCHIATRIC: No anxiety, no trouble sleeping, no depression NEUROLOGIC: No H/A, no numbness, no weakness, no tingling EXAMINATION: GENERAL: WD/WN , pleasant & in NAD HEENT: Moist mucosa NECK: Supple, no LN's, no carotid bruits HEART: RRR, S1-S2, no murmurs LUNGS: CTA B/L, no wheezes ABDOMEN: Soft, NT/ND, no HSM, + BS x 4 Quads PERIPH PULSES: 2+ B/L EXTREMITIES: FROM x 4, no edema, able to walk without assistance NEUROLOGIC: AAO x3, no focal findings PSYCHIATRIC: Good eye contact, affect normal, well dressed/groomed ASSESSMENT/PLAN: Adult Annual General Wellness exam -advised eye exams yearly and dental exams Q6 mths -advised heart healthy well balanced diet and lifestyle habits -advised regular CV exercise for 30 mins on most days of the week 1.Parkinson's Dz: dxed 2013, on rasagiline 1mg/day and carbidopa/levodopa 25/100mg TID, managed by neurology/Dr Campbell, last OV 06/28/22 2. Hyperlipidemia: well controlled on atorvastatin 20mg QHS Collection DT Spec CHOL HDL CHO/HDL LDL-c TRIG 03/24/2023 07:33 SERUM 147 49 3.0 78 102 3. DM Type 2: under excellent dietary control, was on oral medications in the past FBS 100 - A1c 5.9% Eye Exam: 01/13/23 - [facility] Exam: 04/16/23 - Dr Briscoe - pos PVD, pos DPN Microalbuminuria: 04/23/21 - negative 4. Colonoscopy Screening: due 03/20/27 FOLLOW UP: 6 mths - Lipids/DM II - FBW prior ========= No barriers; Patient understands and agrees to [...] Remote Allergy/ADR Data available for this patient [facility] [place] [facility] No Known Allergies Med Recon [facility] (Tool #1) INCLUDED IN THIS LIST: Alphabetical [...] the patient into personal health records (i.e. Myfacepage) are NOT included in this list. Non-VA medications documented outside this [facility], remote inpatient orders (regardless of status) and remote clinic medications are NOT included in this list. The patient and provider must always discuss medications the patient is taking, regardless of where the medication was dispensed or obtained. ------ OUTPT ATORVASTATIN CALCIUM 40MG TAB (Status = Active) TAKE ONE-HALF TABLET BY MOUTH DAILY FOR CHOLESTEROL Rx# [id number] Last Released: 03/14/23 Qty/Days Supply: 45/90 Rx Expiration Date: 10/01/23 Refills Remainin OUTPT CARBIDOPA 25/LEVODOPA 100MG TAB (Status = Active) TAKE 1 TABLET BY MOUTH THREE TIMES A DAY Rx# [id number] Last Released: 03/10/23 Qty/Days Supply: 270/90 Rx Expiration Date: 06/29/23 Refills Remainin Non-VA CHOLECALCIF 50MCG (D3-2,000UNIT) TAB TAKE ONE TABLET BY MOUTH DAILY Medication prescribed by Non-VA provider. OUTPT DOCUSATE NA 100MG CAP (Status = Active) TAKE ONE CAPSULE BY MOUTH TWICE DAILY TO SOFTEN STOOL Rx# [id number] Last Released: 07/08/22 Qty/Days Supply: 200/90 Rx Expiration Date: 06/29/23 Refills Remainin OUTPT MELATONIN 3MG CAP/TAB (Status = Active) TAKE ONE CAPSULE/TABLET BY MOUTH AT BEDTIME Rx# [id number] Last Released: 07/02/22 Qty/Days Supply: 120/90 Rx Expiration Date: 06/29/23 Refills Remainin OUTPT POLYETHYLENE GLYCOL 3350 ORAL PWDR (Status = Active) TAKE 17 GRAMS (1 CAPFUL) BY MOUTH TWICE DAILY NEEDED FOR CONSTIPATION [MIX WITH 4 TO 8OZ. OF BEVERAGE] Rx# [id number] Last Released: 07/02/22 Qty/Days Supply: 510/90 Rx Expiration Date: 06/29/23 Refills Remainin OUTPT RASAGILINE MESYLATE 1MG TAB (Status = Active) TAKE ONE TABLET BY MOUTH ONCE DAILY Rx# [id number] Last Released: 03/10/23 Qty/Days Supply: 90/ Rx Expiration Date: 06/29/23 Refills Remainin Non-VA VITAMIN B COMPLEX CAP TAKE 1 CAPSULE BY MOUTH DAILY Medication prescribed by Non-VA provider. ------ SUPPLIES ------ /israel/ MAXI FULLER MD Primary Care Physician Signed: 04/21/2023 09:13 MAXI FULLER OLIN
--- NOTE | 2024-03-09 09:15 | A.OFFVIS_ITS ---
Vital Signs 03/09/24 09:17 Height 5 ft 9 in Weight 175 lb BMI 25.8 BP 114/72 Blood Pressure Location Rt brachial Position Sitting Intake Visit Reasons: ENP: Parkinson's Intake Note: Patient presents for parkinson Allergies No Known Allergies Allergy (Verified 03/09/24 09:18) HPI Comments Details: 73y/o Right handed male with a diagnosis of Parkinsonism in 2014 comes for further management . He was seeing at [place] and is transferring care here. He has exposure to [employer] [place]. 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 He worked in [employer] and was in near [place] for 1 year. In 2014 he noticed tremors for 2 years in his right hand which was progressively . He was diagnosed with parkinsons in 2014 and was treated with medications currently he is on carbidopa/levodopa 25/100 2-1-1 and rasagiline 1 mg qd He denies any memory issues, sleep is om used to have some sleep talking and yelling. He denies depression or anxiety . He is motivated . Speech- softer and hampton sdrooling at night Handwriting- not good, use dto have a good hand writing Utensils- good dressing , showering- slower but independant Turning in bed- sleeps in a chair Gait- mild slowing , mild balance issues no recent falls Bowel movements- 3-4 times a week and takes miralax No problems holding urine no hallucinations, no vertigo diplopia. [facility] Medical History (Updated 03/09/24 @ 10:02 by Rupa Urbano MD) Parkinson's disease without dyskinesia Diabetes Hyperlipidemia Parkinson disease Social History Alcohol intake: never Patient Tobacco Use Status: Never used Tobacco Physical Exam Vital Signs: Last Vital Signs BP 114/72 03/09/24 09:17 BMI result Body Mass Index 25.8 Const General: cooperative, healthy appearing and comfortable Nutritional Appearance: average body habitus Orientation/consciousness: patient oriented x3 Eyes Pupils: Equal, round and reactive pupils present Neuro Other: yes yes head tremors , mild dyskinesias Mild decreased facial expression , decreased blink No tremors mild right ue cog wheel rigidity FFM and foot taps mild decrease in R>L Gait- stoop, decreased arm swings and has hard time turning General: patient oriented x3, moves all extremities and no focal motor deficits Cranial nerves: Yes Facial sensation intact/muscles of mastication intact, Yes Equal, round and reactive pupils present, Yes Bilaterally intact EOM present, Yes Nystagmus not present, Yes Normal facial strength present, Yes Midline tongue present, Yes Symmetric palate elevation present and Yes Ability to bilaterally elevate shoulders present Cognition (Neuro): normal cognition Motor exam (neuro): 5/5 motor strength present throughout Deep tendon reflexes (DTR's): Right triceps reflex intensity grade: 1+, Left triceps reflex intensity grade: 1+, Rt Biceps (C5, C6): 1+, Left biceps reflex intensity grade: 1+, Right brachioradialis reflex intensity grade: 1+, Left b rachioradialis reflex intensity grade: 1+, Right patellar reflex intensity grade: 1+ and Left patellar reflex intensity grade: 1+ Coordination: [id number] test normal Assessment & Plan Assessment & Plan (1) Parkinson's disease without dyskinesia: Code(s): G20.A1 - Parkinson's disease without dyskinesia, without mention of fluctuations Category: Medical Qualifiers: Fluctuating manifestations: without fluctuating manifestations Qualified Code(s): G20.A1 - Parkinson's disease without dyskinesia, without mention of fluctuations Plan Continue sinemet 25/100 2-1-1 Rasagiline 1mg qd Indo on APDA website given Indo on the Total body workout for PD in [place] was given I will also refer him to PT for gait training Orders: Orders PT Evaluation and Treatment Today G20.A1 - Parkinson's disease without dyskinesia, without mention of fluctuations Coding Level of Care Code New Pt Level 4 (11857) Complex EM visit Add On G2211 Diagnoses Parkinson's disease without dyskinesia or fluctuating manifestations G20.A1 Fluctuating manifestations: without fluctuating manifestations
--- OUTSIDE RECORDS SUMMARY | 2024-03-09 09:15 | XMS_ITS | Encounter Summary ---
Author Name [facility] [place] [facility] [place] Address [address] [place] [address] Care Team Providers Care Branch Mechanic Name Role Phone MAXI FULLER Primary Care [...] Name Patient's Relationship to Policy [facility] June 17, 2013 [id number] Id[address] BENITEZ PATIENT MEDICARE (WNR) MEDICARE () PART A June 17, 2013 PART A [id number] [phone] Idania BENITEZ PATIENT MEDICARE (WNR) MEDICARE () PART B June 17, 2013 PART B [id number] Idania BENITEZ PATIENT MEDICARE (WN) MEDICARE () PART A June 17, 2013 PART A [id number] Idania BENITEZ AYJESSENIA PATIENT MEDICARE (WNR) MEDICARE () PART B June 17, 2013 PART B [id number] [phone] BUZZELL,W AYNE PATIENT Selected Encounter This section includes the information on record at [place] for the Encounter. Date/Time Encounter Type Encounter Description Reason Pro vider Source Mar 18, 2023 03:15 PM Outpatient Encounter NEUROLOGY IHE Encounter Template Text not used by [place] Plan of Treatment: Future Appointments (+ 6 months) and Future Tests (+/- 45 days) The Plan of Treatment section includes future care activities for the patient from all [place] treatmentfacilities. This section includes future appointments and future orders which are active, pending or scheduled. Future Appointments This section includes appointments that were scheduled to occur 6 months from the date of the Encounter, up to a maximum of 20 appointments. The data comes from all [place] treatment facilities. Appointment Date/Time Appointment Type Appointme nt Facility Name Mar 22, 2023 08:00 AM AMBULATORY - MEDICINE [place] [facility] [place] [facility] Apr 16, 2023 09:00 AM AMBULATORY - MEDICINE [facility] Apr 21, 2023 08:30 AM AMBULATORY - MEDICINE [place] [facility] [place] [facility] May 12, 2023 11:00 AM AMBULATORY - NEUROLOGY [place] [facility] [place] [facility] May 15, 2023 10:30 AM AMBULATORY - NEUROLOGY [place] [facility] [place] [facility] Jul 29, 2023 03:15 PM AMBULATORY - MEDICINE [place] [facility] [place] [facility] Lab Results: +/- 30 days of the encounter This section includes the Chemistry and Hematology Lab Results on record with [place] for the patient. Radiology Reports and Pathology Reports are provided separately, in subsequent sections. Lab Results This section contains the Chemistry/Hematology Results that were resulted 30 days before or 30 daysafter the date of the Encounter. Date/Time Source Result Type Result - Unit Interpretation Reference Range Comment Mar 24, 2023 07:33 AM [place] [facility] [place] [facility] FOLATE Specimen Type: SERUM No comment entered. Ordering Provider: MAXI FULLER Report Released Date/Time: Sep 30, 2022 08:25 AM Reporting Lab: [place] [facility] [place] [facility] [address] [facility] [address] Performing Lab: [facility] [address] [facility] [address] FOLATE 14.25 ng/mL >5.2 Mar 24, 2023 07:33 AM [facility] TSH Specimen Type: SERUM No comment entered. Ordering Provider: MAXI FULLER Report Released Date/Time: Sep 30, 2022 08:25 AM Reporting Lab: [place] [facility] [place] [facility] [address] [facility] [address] Performing Lab: [facility]TR[facility] [address] [facility] [address] TSH 1.78 u[IU]/mL 0.35-5.00 Mar 24, 2023 07:33 AM [facility] HEMOGLOBIN A1C PANEL Specimen Type: BLOOD [...] Sep 30, 2022 08:25 AM Reporting Lab: [facility] [place] [facility] [address] [facility] [phone] Performing Lab: [facility] [place] [facility] [address] [facility] [address] HEMOGLOBIN A1C 5.9 H 4.0-5.6 Mar 24, 2023 07:33 AM [facility] VITAMIN B12 Specimen Type: SERUM No comment entered. Ordering Provider: MAXI FULLER Report Released Date/Time: Sep 30, 2022 08:25 AM Reporting Lab: [facility] [place] [place] [facility] [address] [facility] [address] Performing Lab: [facility] [place] [facility] [address] [facility] [address] VITAMIN B12 544 pg/mL 200-900 Mar 24, 2023 07:33 AM [facility] VITAMIN D (25-OH) Specimen Type: SERUM No comment entered. Ordering Provider: MAXI FULLER Report Released Date/Time: Sep 30, 2022 08:25 AM Reporting Lab: [facility] [address] [facility] [phone] Performing Lab: [place] [facility] [address] [facility] [address] VITAMIN D (25-OH) 36 ng/mL 20-50 Mar 24, 2023 07:33 AM [facility] LIPID PANEL FASTING Specimen Type: SERUM No comment entered. Ordering Provider: MAXI FULLER Report Released Date/Time: Sep 30, 2022 08:25 AM Reporting Lab: [facility] [address] [facility] [address] Performing Lab: [facility]ERN [facility] [address] [address] CHOLESTEROL 147 mg/dL TRIGLYCERIDE 102 mg/dL 0-150 LDL calculated 78 mg/dL 0-129 CHOL/HDL 3.0 HDL CHOLESTEROL 49 mg/dL 40-60 Mar 24, 2023 07:33 AM [facility] LIVER FUNCTION Specimen Type: SERUM No comment entered. Ordering Provider: MAXI UFLLER Report Released Date/Time: Sep 30, 2022 08:25 AM Reporting Lab: [facility]ENTERTRN [facility] [address] [facility] [phone] Performing Lab: [facility]ITALR[facility] CENTERN [facility] [address] [address] PROTEIN,TOTAL 7.1 g/dL 6.0-8.3 ALBUMIN 3.9 g/dL 3.5-5.0 ALKALINE PHOSPHATASE 76 U/L 40-150 AST 19 U/L 5-34 ALT 18 U/L BILIRUBIN, TOTAL 1.0 mg/dL 0.2-1.2 Mar 24, 2023 07:33 AM [facility]ERN [facility] BASIC METABOLIC PANEL (fasting) Specimen Type: SERUM No comment entered. Ordering Provider: MAXI FULLER Report Released Date/Time: Sep 30, 2022 08:25 AM Reporting Lab: [facility] CENTERTRN [facility] [address] [facility] [phone] Performing Lab: [facility]ENTERN [facility] [address] [address] UREA NITROGEN 18 mg/dL 7-25 GLUCOSE 100 mg/dL 65-100 SODIUM 144 mmol/L 135-145 POTASSIUM 4.4 mmol/L 3.5-5.0 CHLORIDE 107 mmol/L 100-110 CO2 27 meq/L 20-30 CREATININE, Serum 1.32 mg/dL 0.50-1.40 eGFR(CKD-EPI 2020) 56 mL/min L >60 Mar 24, 2023 07:33 AM [facility] CBC AND DIFF (AUTO) Specimen Type: BLOOD No comment entered. Ordering Provider: MAXI FULLER Report Released Date/Time: Sep 30, 2022 08:25 AM Reporting Lab: [facility] [address] [facility] [address] Performing Lab: [facility] [address] [facility] [address] WBC 6.28 10*3/uL 4.50-11.00 RBC 5.29 10*6/uL 4.23-5.66 HGB 15.7 g/dL 12.8-17 HCT 47.8 39.2-50.4 MCV 90.4 fL 82-99 MCHC 32.8 g/dL 30.8-35.1 PLT 165 10*3/uL 140-360 RDW-CV 12.8 12.0-16.0 Mobile, Abs 0.49 10*3/uL 0.30-1.10 MCH 29.7 pg 26.2-32.6 Neut % 39.7 L 43.7-75.8 Lymph % 47.9 H 14.0-42.3 Mobile % 7.8 5.1-13.7 Eos % 3.5 0.4-6.8 [...] Facil ity Oct 21, 2019 10:30 AM [place]-TOBACCO QUIT 15 YRS OR MORE [facility] Tobacco Use History This section includes a history of the smoking, or tobacco-related health factors, that were collected on or before the date of the Encounter. The data comes from the [place] facility where the Encounter took place. Date/Time Smoking Status/Tobacco Use Comment F acility Oct 21, 2019 10:30 AM [place]-TOBACCO QUIT 15 YRS OR MORE [facility] Advance Directives: All historical and [...] Oct 03, 2016 ADVANCE DIRECTIVE [facility] Encounter Notes: All associated encounter notes This section contains the clinical notes associated to the Encounter. Date/Time Encounter Note(s) Provider Source Mar 18, 2023 03:15 PM ADMINISTRATIVE NOT E: LOCAL TITLE: ADMINISTRATIVE NOTE STANDARD TITLE: ADMINISTRATIVE NOTE DATE OF NOTE: MAR 18, 2023@15:15 ENTRY DATE: MAR 18, 2023@15:15:23 AUTHOR: MISSY CRUZ EXP COSIGNER: URGENCY: STATUS: COMPLETED RTC pid 02/03/2024 dispositioned due to veterans failure to respond to all contact efforts per department standards. /israel/ MISSY CRUZ ADVANCED CHANGE RELEASE MANAGER Signed: 03/18/2023 15:15 MISSY CRUZ [facility]
--- OUTSIDE RECORDS SUMMARY | 2024-03-09 09:15 | XMS_ITS | Encounter Summary ---
Author Name [facility] [place] Organization [facility] [place] Address [address] [place] [address] Care Team Providers Care Anesthesiology Fellow Name Role Phone MAXI FULLER Primary Care [...] Name Patient's Relationship to Policy [facility] June 17, 2013 [id number] Idania BENITEZ PATIENT MEDICARE (WNR) MEDICARE () PART A June 17, 2013 PART A [id number] Idania BENITEZ PATIENT MEDICARE (WNR) MEDICARE () PART B June 17, 2013 PART B [id number] Idania BENITEZ PATIENT MEDICARE (WN) MEDICARE () PART A June 17, 2013 PART A [id number] Idania BENITEZ AYJESSENIA PATIENT MEDICARE (WNR) MEDICARE () PART B June 17, 2013 PART B [id number] ELLENМАРИЯW AYNE PATIENT Selected Encounter This section includes the information on record at [place] for the Encounter. Date/Time Encounter Type Encounter Description Reason Pro vider Source Mar 19, 2023 08:23 AM Outpatient Encounter OPTOMETRY IHE Encounter Template Text not used by [place] Plan of Treatment: Future Appointments (+ 6 months) and Future Tests (+/- 45 days) The Plan of Treatment section includes future care activities for the patient from all [place] treatmentfacilities. This section includes future appointments and future orders which are active, pending or scheduled. Future Appointments This section includes appointments that were scheduled to occur 6 months from the date of the Encounter, up to a maximum of 20 appointments. The data comes from all [place] treatment facilities. Appointment Date/Time Appointment Type Appointme nt Facility Name Mar 22, 2023 08:00 AM AMBULATORY - MEDICINE [place] [facility] [place] [facility] Apr 16, 2023 09:00 AM AMBULATORY - MEDICINE [facility] Apr 21, 2023 08:30 AM AMBULATORY - MEDICINE [place] [facility] [place] [facility] May 12, 2023 11:00 AM AMBULATORY - NEUROLOGY [place] [facility] [place] [facility] May 15, 2023 10:30 AM AMBULATORY - NEUROLOGY [place] [facility] [place] [facility] Jul 29, 2023 03:15 PM AMBULATORY - MEDICINE [facility] [place] [facility] Lab Results: +/- 30 days of the encounter This section includes the Chemistry and Hematology Lab Results on record with [place] for the patient. Radiology Reports and Pathology Reports are provided separately, in subsequent sections. Lab Results This section contains the Chemistry/Hematology Results that were resulted 30 days before or 30 daysafter the date of the Encounter. Date/Time Source Result Type Result - Unit Interpretation Reference Range Comment Mar 24, 2023 07:33 AM [place] [facility] [place] [facility] FOLATE Specimen Type: SERUM No comment entered. Ordering Provider: MAXI FULLER Report Released Date/Time: Sep 30, 2022 08:25 AM Reporting Lab: [facility] [place] [place] [facility] [address] [facility] [address] Performing Lab: [facility] [address] [facility] [address] FOLATE 14.25 ng/mL >5.2 Mar 24, 2023 07:33 AM [facility] HEMOGLOBIN A1C PANEL Specimen Type: BLOOD [...] Sep 30, 2022 08:25 AM Reporting Lab: [facility] [address] [facility] [address] Performing Lab: [facility] [address] [address] HEMOGLOBIN A1C 5.9 H 4.0-5.6 Mar 24, 2023 07:33 AM [facility] TSH Specimen Type: SERUM No comment entered. Ordering Provider: MAXI FULLER Report Released Date/Time: Sep 30, 2022 08:25 AM Reporting Lab: [facility] [address] [facility] [address] Performing Lab: [facility] [address] [facility] [address] TSH 1.78 u[IU]/mL 0.35-5.00 Mar 24, 2023 07:33 AM [facility] VITAMIN B12 Specimen Type: SERUM No comment entered. Ordering Provider: MAXI FULLER Report Released Date/Time: Sep 30, 2022 08:25 AM Reporting Lab: [facility] [address] [facility] [address] Performing Lab: [facility] [address] [address] VITAMIN B12 544 pg/mL 200-900 Mar 24, 2023 07:33 AM [facility] VITAMIN D (25-OH) Specimen Type: SERUM No comment entered. Ordering Provider: MAXI FULLER Report Released Date/Time: Sep 30, 2022 08:25 AM Reporting Lab: [facility] [address] [facility] [address] Performing Lab: [facility] [address] [facility] [address] VITAMIN D (25-OH) 36 ng/mL 20-50 Mar 24, 2023 07:33 AM [facility] LIPID PANEL FASTING Specimen Type: SERUM No comment entered. Ordering Provider: MAXI FULLER Report Released Date/Time: Sep 30, 2022 08:25 AM Reporting Lab: [facility] [address] [facility] [address] Performing Lab: [facility] [address] CHOLESTEROL 147 mg/dL TRIGLYCERIDE 102 mg/dL 0-150 LDL calculated 78 mg/dL 0-129 CHOL/HDL 3.0 HDL CHOLESTEROL 49 mg/dL 40-60 Mar 24, 2023 07:33 AM [facility] LIVER FUNCTION Specimen Type: SERUM No comment entered. Ordering Provider: MAXI FULLER Report Released Date/Time: Sep 30, 2022 08:25 AM Reporting Lab: [facility] [address] [facility] [address] Performing Lab: [facility] [address] PROTEIN,TOTAL 7.1 g/dL 6.0-8.3 ALBUMIN 3.9 g/dL 3.5-5.0 ALKALINE PHOSPHATASE 76 U/L 40-150 AST 19 U/L 5-34 ALT 18 U/L BILIRUBIN, TOTAL 1.0 mg/dL 0.2-1.2 Mar 24, 2023 07:33 AM [facility] BASIC METABOLIC PANEL (fasting) Specimen Type: SERUM No comment entered. Ordering Provider: MAXI FULLER Report Released Date/Time: Sep 30, 2022 08:25 AM Reporting Lab: [facility] [address] Performing Lab: [facility] [address] UREA NITROGEN 18 mg/dL 7-25 GLUCOSE 100 mg/dL 65-100 SODIUM 144 mmol/L 135-145 POTASSIUM 4.4 mmol/L 3.5-5.0 CHLORIDE 107 mmol/L 100-110 CO2 27 meq/L 20-30 CREATININE, Serum 1.32 mg/dL 0.50-1.40 eGFR(CKD-EPI 2020) 56 mL/min L >60 Mar 24, 2023 07:33 AM [facility] CBC AND DIFF (AUTO) Specimen Type: BLOOD No comment entered. Ordering Provider: MAXI FULLER Report Released Date/Time: Sep 30, 2022 08:25 AM Reporting Lab: [facility] [address] [facility] [address] Performing Lab: [facility] [address] [facility] [address] WBC 6.28 10*3/uL 4.50-11.00 RBC 5.29 10*6/uL 4.23-5.66 HGB 15.7 g/dL 12.8-17 HCT 47.8 39.2-50.4 MCV 90.4 fL 82-99 MCHC 32.8 g/dL 30.8-35.1 PLT 165 10*3/uL 140-360 RDW-CV 12.8 12.0-16.0 Labette, Abs 0.49 10*3/uL 0.30-1.10 MCH 29.7 pg 26.2-32.6 Neut % 39.7 L 43.7-75.8 Lymph % 47.9 H 14.0-42.3 Labette % 7.8 5.1-13.7 Eos % 3.5 0.4-6.8 [...] and tobacco- related health factors from the [place] facility where the Encounter took place. Current Smoking Status This section includes the most current smoking, or tobacco-related health factor, from the [place] facility where the Encounter took place. Date/Time Current Smoking Status Comment Facil ity Oct 21, 2019 10:30 AM VA-TOBACCO FORMER USER [facility] Tobacco Use History This section includes a history of the smoking, or tobacco-related health factors, that were collected on or before the date of the Encounter. The data comes from the [place] facility where the Encounter took place. Date/Time Smoking Status/Tobacco Use Comment F acility Oct 21, 2019 10:30 AM [place]-TOBACCO QUIT 15 YRS OR MORE [facility] Advance Directives: All historical and current Section Date Range: From patient's date of to the date document was created. This section includes ALL of a patient's completed or amended [place] Advance and Rescinded Directives. The entries below indicate that a directive exists for the patient, but an actual copy is not included with this document. The data comes from all [place] facilities. Date Advance Directives Provider Source Oct 03, 2016 ADVANCE DIRECTIVE [facility] Encounter Notes: All associated encounter notes This section contains the clinical notes associated to the Encounter. Date/Time Encounter Note(s) Provider Source Mar 19, 2023 08:23 AM LETTERS: LOCAL TITLE: PATIENT LETTER (B) STANDARD TITLE: LETTERS DATE OF NOTE: MAR 19, 2023@08:23 ENTRY DATE: MAR 19, 2023@08:23:42 AUTHOR: MISSY CRUZ EXP COSIGNER: URGENCY: STATUS: COMPLETED [facility] Toll Free Number , ext [phone] MAR 19, 2023 LULU BENITEZ [address] [place] [phone] Dear LULU BENITEZ Thank you for choosing the Department of [facility] ([place]) [facility] as your primary choice for health care. As a partner in your health care, we are contacting you in writing since we have been unsuccessful in our attempts to reach you to date. We want to assure you we are doing everything possible to schedule Veterans for their [place] medical care appointments. Our records indicate you are due for an appointment in optometry Thank you for choosing [facility] ([place]) [facility] as your primary choice for health care. As a partner in your health care, we are contacting you in writing since we have been unsuccessful in our attempts to reach you to date. We want to assure you we are doing everything possible to schedule Veterans for their [place] medical care appointments. If you would like to be seen, please contact [facility] at [phone] Ext. [phone] to schedule an appointment. Thank you for your service to our nation, and we look forward to hearing from you soon. Sincerely, [facility] [address] [facility] [address] [place] [address] [place] [address] ext. [phone] [facility] [address] [facility] [address] [place] [address] [phone] [facility] [address] [address] [place] [address] ext. [phone] [facility] [address] [place] [address] ext. [phone] MISSY CRUZ [place] [facility] [place] [facility]
[2024-03-09 09:17] VITALS: BP 114/72; BMI 25.8
== END 2024-03-09 09:57 | disposition home or self-care (01) ==
PROVIDERS: PCP Psychiatry & Neurology Neurology; Visit Provider Psychiatry & Neurology Neurology
DX: G20.A1 Parkinson's disease without dyskinesia, without mention of fluctuations (principal)
CPT/HCPCS: 99204; G2211

== ENCOUNTER → 2024-03-09 08:54 | Outpatient (BNVA) | payer OTHER, SELFPAY | PROVIDERS: PCP Psychiatry & Neurology Neurology; Visit Provider Psychiatry & Neurology Neurology | DX: G20.A1 Parkinson's disease without dyskinesia, without mention of fluctuations (principal) | CPT/HCPCS: 99202 ==

== ENCOUNTER 2024-07-23 12:29 | Outpatient (AMB) | payer OTHER, SELFPAY ==
--- OUTSIDE RECORDS SUMMARY | 2024-07-23 12:36 | XMS_ITS | Encounter Summary ---
Author Name [facility] [place] [facility] [place] Address [address] [place] [address] Care Team Providers Care Vocational Psychologist Name Role Phone MAXI FULLER Primary Care [...] Name Patient's Relationship to Policy [facility] June 17, 2013 [id number] Idania BENITEZ PATIENT MEDICARE (WNR) MEDICARE () PART A June 17, 2013 PART A [id number] Idania BENITEZ PATIENT MEDICARE (WN) MEDICARE () PART B June 17, 2013 PART B [id number] Idania BENITEZ PATIENT MEDICARE (WN) MEDICARE () PART A June 17, 2013 PART A [id number] Idania BENITEZ PATIENT MEDICARE (WNR) MEDICARE () PART B June 17, 2013 PART B [id number] Idania BENITEZ AYNE PATIENT Selected Encounter This section includes the information on record at [place] for the Encounter. Date/Time Encounter Type Encounter Description Reason Pro vider Source July 03, 2024 06:31 PM Outpatient Encounter ADMIN PAT ACTIVTIES (DANIANONCT) IHE Encounter Template Text not used by [place] Plan of Treatment: Future Appointments (+ 6 months) and Future Tests (+/- 45 days) The Plan of Treatment section includes future care activities for the patient from all [place] treatmentfacilities. This section includes future appointments and future orders which are active, pending or scheduled. Future Appointments This section includes appointments that were scheduled to occur 6 months from the date of the Encounter, up to a maximum of 20 appointments. The data comes from all [place] treatment facilities. Appointment Date/Time Appointment Type Appointme nt Facility Name Oct 26, 2024 08:30 AM AMBULATORY - MEDICINE [facility] Nov 03, 2024 09:00 AM AMBULATORY - MEDICINE [facility] Social History: Smoking Status (Most [...] Facil ity Oct 21, 2019 10:30 AM [place]-TOBACCO FORMER USER [facility] Tobacco Use History This section includes a history of the smoking, or tobacco-related health factors, that were collected on or before the date of the Encounter. The data comes from the [place] facility where the Encounter took place. Date/Time Smoking Status/Tobacco Use Comment F acility Oct 21, 2019 10:30 AM [place]-TOBACCO QUIT 15 YRS OR MORE [facility] Advance Directives: All historical and current Section [...] Encounter. Date/Time Encounter Note(s) Provider Source July 03, 2024 06:31 PM PHARMACY NOTE: LOCAL TITLE: V1 PHARMACY CUSTOMER CARE MEDICATION RENEWAL STANDARD TITLE: PHARMACY NOTE DATE OF NOTE: JULY 03, 2024@18:31 ENTRY DATE: JULY 03, 2024@18:31:24 AUTHOR: KATHE GREY I EXP COSIGNER: URGENCY: STATUS: COMPLETED V1 PHARMACY CUSTOMER CARE MEDICATION RENEWAL Has ADDENDA Date: June Division: [facility] referred by Pharmacy Call Center for medication renewal: Non-controlled/maintenanc e medication Medications requested: [id number] POLYETHYLENE GLYCOL 3350 ORAL PWDR Defer to specialty clinic To be mailed . Please review and renew if appropriate. *This note was generated by [facility]/[place] Pharmacy Customer Care. If you have any questions or need assistance, do not contact this author. Please refer all questions to your local, on-site pharmacy departments. /israel/ Kathe Grey CPhT [employer], [place]/Pharmacy Customer Care Signed: 07/03/2024 18:32 Receipt Acknowledged By: 07/19/2024 07:29 /israel/ TENZIN SUE MD PHYSICIAN 07/19/2024 ADDENDUM STATUS: COMPLETED I am no longer working regularly at the [place], and am not refilling medications for them, except for botox. Please refer all medication renewals to patient's PCM. Thank you! /mark SUE MD PHYSICIAN Signed: 07/19/2024 07:29 KATHE GREY I [place] [facility]
[2024-07-23 12:42] VITALS: BP 100/62; PULSE 72; O2SAT 96; BMI 25.7
--- NOTE | 2024-07-23 12:42 | A.OFFVIS_ITS ---
Vital Signs 07/23/24 12:42 Height 5 ft 9 in Weight 174 lb BMI 25.7 BP 100/62 Blood Pressure Location Rt brachial Position Sitting Pulse 72 Pulse Source Pulse Oximeter Pulse Oximetry (%) 96 Oxygen Delivery Method Room Air Intake Visit Reasons: 4m follow up RESCHED Intake Note: called [facility] in [place] left message for Carol Parisi asking for notes 07/06 Plaster Foreman Required: No Accompanied by: Self / Same As Patient Allergies No Known Allergies Allergy (Verified 07/23/24 12:45) Medication List - Last Reconciled 07/23/24 by Rupa Urbano MD atorvastatin 20 mg PO DAILY carbidopa-levodopa 25-100 mg 2 tab at 8am 1 tab at 1pm and 6 pm orally; rasagiline 1 mg PO DAILY HPI Comments Details: 74y/o Right handed male with a diagnosis of Parkinsonism in 2014 comes for follow up .He went for 2 sessions but it was too far for him.No change since last visit History from initial visit- He was seeing at [facility] and is transferring care here. He has exposure to [employer]. 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 He worked in [employer] and was in near [place] for 1 year. In 2014 he noticed tremors for 2 years in his right hand which was progressively . He was diagnosed with parkinsons in 2014 and was treated with medications currently he is on carbidopa/levodopa 25/100 2-1-1 and rasagiline 1 mg qd He denies any memory issues, sleep is om used to have some sleep talking and yelling. He denies depression or anxiety . He is motivated . Speech- softer and has drooling at night Handwriting- not good, use dto have a good hand writing Utensils- good dressing , showering- slower but independent Turning in bed- sleeps in a chair Gait- mild slowing , mild balance issues no recent falls Bowel movements- 3-4 times a week and takes miralax No problems holding urine no hallucinations, no vertigo diplopia. [facility] Medical History Parkinson's disease without dyskinesia Diabetes Hyperlipidemia Parkinson disease Social History Alcohol intake: never Patient Tobacco Use Status: Never used Tobacco Physical Exam Vital Signs: Last Vital Signs Pulse 72 07/23/24 12:42 BP 100/62 07/23/24 12:42 Pulse Ox 96 07/23/24 12:42 Oxygen Delivery Method Room Air 07/23/24 12:42 BMI result Body Mass Index 25.7 Const General: cooperative, healthy appearing and comfortable Nutritional Appearance: average body habitus Orientation/consciousness: patient oriented x3 Eyes Pupils: Equal, round and reactive pupils present Neuro Other: yes yes head tremors , mild dyskinesias Mild decreased facial expression , decreased blink No tremors mild right ue cog wheel rigidity FFM and foot taps mild decrease in R>L Gait- stoop, decreased arm swings and has hard time turning General: patient oriented x3, moves all extremities and no focal motor deficits Cranial nerves: Yes Facial sensation intact/muscles of mastication intact, Yes Equal, round and reactive pupils present, Yes Bilaterally intact EOM present, Yes Nystagmus not present, Yes Normal facial strength present, Yes Midline tongue present, Yes Symmetric palate elevation present and Yes Ability to bilaterally elevate shoulders present Cognition (Neuro): normal cognition Motor exam (neuro): 5/5 motor strength present throughout Coordination: yxkpag-az-kqaw test normal Assessment & Plan Assessment & Plan (1) Parkinson's disease without dyskinesia: Code(s): G20.A1 - Parkinson's disease without dyskinesia, without mention of fluctuations Category: Medical Qualifiers: Fluctuating manifestations: without fluctuating manifestations Qualified Code(s): G20.A1 - Parkinson's disease without dyskinesia, without mention of fluctuations Plan Change sinemet 25/100 1 tab qid or 5 times a day- 5am,10am,3pm, 8pm or 5am, 9am, 1pm 5pm 9pm Rasagiline 1mg qd I will also refer him to PT for gait training Orders: Orders PT Evaluation and Treatment Today G20.A1 - Parkinson's disease without dyskinesia, without mention of fluctuations Medications: Changed From carbidopa-levodopa 25-100 mg 2 tab at 8am 1 tab at 1pm and 6 pm orally; To carbidopa-levodopa 25-100 mg 1 tab at 5am,9am,1pm,5pm,9pm 150 tabs 5RF Coding Level of Care Code Est Pt Level 4 (73666) Complex EM visit Add On G2211 Diagnoses Parkinson's disease without dyskinesia or fluctuating manifestations G20.A1 Fluctuating manifestations: without fluctuating manifestations
== END 2024-07-23 13:10 | disposition home or self-care (01) ==
LOC: HO.HSMS 12:30
PROVIDERS: PCP Psychiatry & Neurology Neurology; Visit Provider Psychiatry & Neurology Neurology
DX: G20.A1 Parkinson's disease without dyskinesia, without mention of fluctuations (principal)
CPT/HCPCS: 99214; G2211

== ENCOUNTER → 2024-07-23 12:29 | Outpatient (BNVA) | payer OTHER, SELFPAY | PROVIDERS: PCP Psychiatry & Neurology Neurology; Visit Provider Psychiatry & Neurology Neurology | DX: G20.A1 Parkinson's disease without dyskinesia, without mention of fluctuations (principal); Z57.4 Occupational exposure to toxic agents in agriculture | CPT/HCPCS: 99212 ==

== ENCOUNTER 2025-01-10 09:52 | Outpatient (AMB) | payer OTHER, SELFPAY ==
[2025-01-10 09:54] VITALS: BP 104/62; PULSE 81; O2SAT 98; BMI 26.0
--- NOTE | 2025-01-10 09:54 | MHC.OFFVIS ---
Vital Signs 01/10/25 09:54 Height 5 ft 9 in Weight 176 lb 4 oz BMI 26.0 BP 104/62 Blood Pressure Location Rt brachial Position Sitting Pulse 81 Pulse Source Pulse Oximeter Pulse Oximetry (%) 98 Oxygen Delivery Method Room Air Intake Visit Reasons: Follow up Intake Note: Follow up Parkinson's disease without dyskinesia, without mention of fluctuations Double End Production Grinder Required: No Accompanied by: Self / Same As Patient Allergies No Known Allergies Allergy (Verified 01/10/25 09:54) Medication List - Last Reconciled 01/10/25 by Rupa Urbano MD atorvastatin 20 mg PO DAILY carbidopa-levodopa 25-100 mg 1 tab at 5am,9am,1pm,5pm,9pm rasagiline 1 mg PO DAILY HPI Comments Details: 74y/o Right handed male with a diagnosis of Parkinsonism in 2014 comes for follow up .No change since last visit History from initial visit- He was seeing at [place] and is transferring care here. He has exposure to [employer]. 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 He worked in [place] and was in near [place] for 1 year. In 2014 he noticed tremors for 2 years in his right hand which was progressively . He was diagnosed with parkinsons in 2015 and was treated with medications currently he is on carbidopa/levodopa 25/100 2-1-1 and rasagiline 1 mg qd He denies any memory issues, sleep is om used to have some sleep talking and yelling. He denies depression or anxiety . He is motivated . Speech- softer and has drooling at night Handwriting- not good, use dto have a good hand writing Utensils- good dressing , showering- slower but independent Turning in bed- sleeps in a chair Gait- mild slowing , mild balance issues no recent falls Bowel movements- 3-4 times a week and takes miralax No problems holding urine no hallucinations, no vertigo diplopia. [facility] Medical History Parkinson's disease without dyskinesia Diabetes Hyperlipidemia Parkinson disease Social History Alcohol intake: never Patient Tobacco Use Status: Never used Tobacco Physical Exam Vital Signs: Last Vital Signs Pulse 81 01/10/25 09:54 BP 104/62 01/10/25 09:54 Pulse Ox 98 01/10/25 09:54 Oxygen Delivery Method Room Air 01/10/25 09:54 BMI result Body Mass Index 26.0 Const General: cooperative, healthy appearing and comfortable Nutritional Appearance: average body habitus Orientation/consciousness: patient oriented x3 Eyes Pupils: Equal, round and reactive pupils present Neuro Other: Mild decreased facial expression , decreased blink No tremors normal tone FFM and foot taps mild decrease in R>L Gait- stoop, decreased arm swings and difficulty turning General: patient oriented x3, moves all extremities and no focal motor deficits Cranial nerves: Yes Facial sensation intact/muscles of mastication intact, Yes Equal, round and reactive pupils present, Yes Bilaterally intact EOM present, Yes Nystagmus not present, Yes Normal facial strength present, Yes Midline tongue present, Yes Symmetric palate elevation present and Yes Ability to bilaterally elevate shoulders present Cognition (Neuro): normal cognition Motor exam (neuro): 5/5 motor strength present throughout Coordination: [id number] test normal Assessment & Plan Assessment & Plan (1) Parkinson's disease without dyskinesia: Code(s): G20.A1 - Parkinson's disease without dyskinesia, without mention of fluctuations Category: Medical Qualifiers: Fluctuating manifestations: without fluctuating manifestations Qualified Code(s): G20.A1 - Parkinson's disease without dyskinesia, without mention of fluctuations Plan sinemet 25/100 1 tab 5 times 5am, 9am, 1pm 5pm 9pm Rasagiline 1mg qd PT - continue exercise Medications: Refilled carbidopa-levodopa 25-100 mg 1 tab at 5am,9am,1pm,5pm,9pm 150 tabs 5RF rasagiline 1 mg PO DAILY 30 tabs 3RF G20.A1 - Parkinson's disease without dyskinesia, without mention of fluctuations Coding Level of Care Code Complex visit Add On G2211 Diagnoses Parkinson's disease without dyskinesia or fluctuating manifestations G20.A1 Fluctuating manifestations: without fluctuating manifestations
--- OUTSIDE RECORDS SUMMARY | 2025-01-10 11:42 | XMS_ITS | Clinical Summary ---
Author Organization [address] [facility] Address [address] [place] [address] Phone Care Team Providers Care Multi Craft Maintenance Technician Name Role Phone Silvana Ramsey MD Primary Care Provider Encounters Date Type Department Care Team Description 11/17/2024 8:00 AM EDT Treatment [address] [phone] Frida Dial, PT Parkinson's disease without dyskinesia or fluctuating manifestations (CMS/HCC V24, CMS/HCC V28) (Primary Dx) 11/09/2024 8:30 AM EDT Treatment [address] [phone] Francesco Dutton, FITTING ROOM ASSOCIATE Parkinson's disease without dyskinesia or fluctuating manifestations (CMS/HCC V24, CMS/HCC V28) (Primary Dx) 11/02/2024 8:30 AM EDT Treatment [address] [phone] Francesco Dutton, FITTING ROOM ASSOCIATE Parkinson's disease without dyskinesia or fluctuating manifestations (CMS/HCC V24, CMS/HCC V28) (Primary Dx) 10/29/2024 8:30 AM EDT Treatment [address] [phone] Ion Diallo, FITTING ROOM ASSOCIATE Parkinson's disease without dyskinesia or fluctuating manifestations (CMS/HCC V24, CMS/HCC V28) (Primary Dx) 10/22/2024 9:00 AM EDT Treatment [address] [phone] Leighton Rodriguez, FITTING ROOM ASSOCIATE Parkinson's disease without dyskinesia or fluctuating manifestations ([facility]/HCC V24, [facility]/HCC V28) (Primary Dx) 10/19/2024 8:15 AM EDT Treatment [address] [phone] Frida Dial, PT Parkinson's disease without dyskinesia or fluctuating manifestations (CMS/HCC V24, CMS/HCC V28) (Primary Dx) 10/11/2024 9:30 AM EDT Treatment [address] [phone] Francesco Dutton, FITTING ROOM ASSOCIATE Parkinson's disease without dyskinesia or fluctuating manifestations ([facility]/HCC V24, [facility]/HCC V28) (Primary Dx) from Last 3 Months Medical History Medical History Date Comments Hypertension 08/17/2019 DX:Hypertension Fatty liver 08/17/2019 DX:Fatty liver Hyperlipidemia 08/17/2019 DX:Hyperlipidemi a Diabetes mellitus type 2, uncomplicated (CMS/HCC V24, CMS/HCC V28) 08/17/2019 DX:Diabetes mellitus type 2, uncomplicated (HCC) Parkinson's disease ([facility] V24, [facility] V28) 08/17/2019 DX:Parkinson's disease (HCC) Vitamin D deficiency 08/17/2019 DX:Vitamin D deficiency Social History Tobacco Use Types Packs/Day Years Used Date Smoking Tobacco: Never Assessed Sex and Gender Information Value Date Recorded Sex Assigned at Not on file Legal Sex Male 12:34 PM EST Gender Identity Not on file Sexual Orientation Not on file Obstetrics History Plan of Treatment Health Maintenance Due Date Last Done Comments Diabetes: Annual GFR (Glomerular Filtration Rate) 1948 Diabetes: Annual Foot Exam 1958 Diabetes: Annual Retina Eye Exam 1958 Hepatitis A Vaccines (1 of 2 - Risk 2-dose series) 06/19/1967 Hepatitis B Vaccines (3 of 3 - Risk 3-dose series) 11/23/2020 09/28/2020, 12/08/2019 Cholesterol Screening (Lipid Panel) 01/26/2022 Falls Risk Assessment 01/26/2022 Hepatitis C Screening 01/26/2022 Medicare Annual Wellness Visit 01/26/2022 Social Influencers of Health Screening 01/26/2022 Diabetes: Annual Urine Albumin-Creatinine Ratio (uACR) 02/02/2022 Diabetes: Blood Sugar Control Test (HGBA1C) 02/02/2022 Hypertension/CHF/CAD Annual BMP Blood Test 02/02/2022 RSV Immunization Adult Patients (1 - 1-dose 75+ series) 06/19/2023 Depression Screening 02/18/2024 COVID-19 Vaccine ( season) 2024 02/04/2021, 05/13/2020, 04/22/2020 Influenza Vaccine (#1) 2024 , 03/21/2022, 04/02/2021, Additional history exists DTaP,Tdap,and Td Vaccines (3 - Td or Tdap) 09/28/2030 09/28/2020, 10/16/2015 Zoster Vaccines Completed 09/17/2017, 04/15/2017 Pneumococcal Vaccine: 50+ Years Completed 04/16/2018, 10/03/2016 HIB Vaccines Aged Out No longer eligi ble based on patient's age to complete this topic HPV Vaccines Aged Out No longer eligi ble based on patient's age to complete this topic IPV Vaccines Aged Out No longer eligi ble based on patient's age to complete this topic MMR Vaccines Aged Out No longer eligi ble based on patient's age to complete this topic Meningococcal ACWY Vaccine Aged Out N o longer eligible based on patient's age to complete this topic Meningococcal B Vaccine Aged Out No l onger eligible based on patient's age to complete this topic RSV Immunization Patients Under 20 months Aged Out No longer eligible based on patient's age to complete this topic Varicella Vaccines Aged Out No longer eligible based on patient's age to complete this topic Insurance MEDICARE Care Teams Multi Craft Maintenance Technician Relationship Specialty Start Date End Date Silvana Ramsey MD [address] [place] [id number] PCP - General Internal Medicine 09/24/24
== END 2025-01-10 10:18 | disposition home or self-care (01) ==
LOC: HO.HSMS 09:52
PROVIDERS: PCP Psychiatry & Neurology Neurology; Visit Provider Psychiatry & Neurology Neurology
DX: G20.A1 Parkinson's disease without dyskinesia, without mention of fluctuations (principal)
CPT/HCPCS: 99213; G2211

== ENCOUNTER → 2025-01-10 09:52 | Outpatient (BNVA) | payer OTHER, SELFPAY | PROVIDERS: PCP Psychiatry & Neurology Neurology; Visit Provider Psychiatry & Neurology Neurology | DX: G20.A1 Parkinson's disease without dyskinesia, without mention of fluctuations (principal) | CPT/HCPCS: 99212 ==